=== PATIENT | female | born 1950 | race Hispanic/Latino ===

== ENCOUNTER 2018-10-07 09:49 | Emergency (ER) | payer OTHER ==
--- NOTE | 2018-10-07 10:35 | RAD REPORT ---
EXAM DESCRIPTION: CT - Abdomen Pelvis Wo Contrast - 10/07/2018 10:25 am CLINICAL HISTORY: Abdominal pain. left sided abdominal pain COMPARISON: Stone Protocol dated 10/19/2017 TECHNIQUE: CT imaging of the abdomen and pelvis was performed without contrast. Solid organ, bowel a nd vascular assessment is limited due to lack of IV and oral contrast. All CT scans are performed using dose optimization technique as appropriate and may include automated exposure control or mA/KV adjustment according to patient size. FINDINGS: Linear subsegmental atelectasis is present in the lung bases. Noncontrast assessment of the liver demonstrates no focal mass or biliary dilatation. The spleen, robins creas, right adrenal gland are unremarkable. 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 No bowel obstruction, free air, free fluid or abscess. The appendix is normal. The osseous structures are within normal limits. IMPRESSION: No acute intra-abdominal or pelvic findings. Bilateral renal caliceal calcifications without hydronephrosis. Stable 3 cm left adrenal mass, unchanged. A limited non-contrast examination was performed as detailed.
--- NOTE | 2018-10-07 10:46 | RAD REPORT ---
EXAM DESCRIPTION: RAD - Chest Single View - 10/07/2018 10:41 am CLINICAL HISTORY: shortness of breath Chest pain. COMPARISON: Chest Pa And Lat (2 Views) dated 06/01/2017; Chest Pa And Lat (2 Views) dated 05/06/2017; Chest Single View dated 03/13/2017; Chest Pa And Lat (2 Views) dated 09/30/2016 FINDINGS: Portable technique limits examination quality. Mild linear subsegmental atelectasis is present left lung base with elevated left hemidiaphragm. The heart is normal in size. Postsurgical changes of a prior CABG noted.
[2018-10-07 11:02] LABS: Absolute Lymphocytes (CBC) 2.1 K/uL (0.7-4.9); Absolute Monocytes 0.7 K/uL (0.1-1.3); Absolute Neutrophil 5.1 K/uL (1.8-8.0); Basophils % 0.8 % (0-1.3); Hematocrit 37.4 % (36.0-45.0); Lymphocytes % 25.4 % (15.3-44.8); MPV 9.2 fL (7.6-11.3); Monocytes % 8.4 % (3.3-12.3); RBC Red Blood Cell Count 3.97 M/uL (3.86-4.86)
[2018-10-07 11:04] LABS: Protime INR 0.96
[2018-10-07 11:22] LABS: ALT/SGPT 20 U/L (12-78); AST/SGOT 15 U/L (15-37); Albumin 3.4 g/dL (3.4-5.0); Alkaline Phosphatase 93 U/L (45-117); BUN Blood Urea Nitrogen 28 mg/dL (7-18); Bicarbonate 28 mmol/L (21-32); Bilirubin Direct < 0.1 mg/dL (0-0.2); Bilirubin Total 0.3 mg/dL (0.2-1.0); Glucose Level 96 mg/dL (74-106); Lipase 92 U/L (73-393); Magnesium 2.3 mg/dL (1.8-2.4); NT PRO-BNP 342 pg/mL (<125); Potassium 4.8 mmol/L (3.5-5.1); Protein, Total 7.3 g/dL (6.4-8.2); Sodium Level 141 mmol/L (136-145); Troponin (Emerg Dept Use Only) < 0.02 ng/mL (0.0-0.045)
--- OUTSIDE RECORDS SUMMARY | 2018-10-07 11:32 | XMS REPORT | Clinical Summary ---
:1950 Author Organization [facility] Address [address] [place] [address] Care Team Providers Name Role Phone Sharpruthy Primary Care Provider Zaki Solares Unavailable Allergies Active Allergy Reactions Severity Noted Date Comments Adhesive Tape-Silicones Itching, Rash Low 02/12/2017 Rash, redness Diphenhydramine Hcl Rash Low 03/15/2017 Medications Medication Sig Dispensed Refills Start Date End Date Status potassium chloride Take 10 mEq by 0 Active (KLOR-CON) 10 MEQ CR mouth daily. tablet docusate sodium Take 100 mg by 0 Active (COLACE) 100 MG mouth 2 (two) capsule times daily. metoprolol Take 25 mg by 0 Active (TOPROL-XL) 25 MG 24 mouth 2 (two) hr tablet times daily. gabapentin Take 100 mg by 0 Active (NEURONTIN) 100 MG mouth 2 (two) capsule times daily. biotin 10,000 mcg Take 1 capsule 0 Active Cap by mouth daily. losartan (COZAAR) 25 Take 1 tablet 30 tablet 1 03/31/2017 03/31/2018 MG tablet (25 mg total) by mouth daily. aspirin 81 MG Take 1 tablet 30 tablet 1 03/31/2017 03/31/2018 chewable tablet (81 mg total) by mouth daily. atorvastatin Take 1 tablet 30 tablet 1 03/30/2017 03/30/2018 (LIPITOR) 40 MG (40 mg total) by tablet mouth nightly. furosemide (LASIX) Take 3 tablets 180 tablet 1 03/31/2017 03/31/2018 20 MG tablet (60 mg total) by mouth 2 (two) times daily with breakfast and dinner. 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 S/P CABG (coronary artery bypass graft) 03/30/2017 Hypoxia 03/30/2017 Fluid overload 03/21/2017 Acute postoperative pain 03/18/2017 Cardiogenic shock 03/17/2017 Hypophosphatemia 03/17/2017 Lactic acid acidosis 03/17/2017 SIRS (systemic inflammatory response syndrome) 03/17/2017 Acute pulmonary insufficiency following thoracic surgery 03/16/2017 Acute blood loss as cause of postoperative anemia 03/16/2017 Coronary artery disease 03/15/2017 Diaphragm paralysis Family History Medical History Relation Name Comments Diabetes Father Heart disease Mother Relation Name Status Comments Father Mother Social History Tobacco Use Types Packs/Day Years Used Date Former Smoker 0.25 15 Quit: 03/2017 Smokeless Tobacco: Never Used Tobacco Cessation: Ready to Quit: Yes; Counseling Given: No Alcohol Use Drinks/Week oz/Week Comments No Sex Assigned at Date Recorded Not on file Job Start Date Occupation Industry Not on file Not on file Not on file Travel History Travel Start Travel End No recent travel history available. Last Filed Vital Signs Not on file Plan of Treatment Not on file Procedures Procedure Name Priority Date/Time Associated Diagnosis Comments TRANSFUSE LEUKO-REDUCED STAT 06/16/2018 5:25 PM SKIN CARVER RED BLOOD CELLS after 10/06/2017 Results Transfuse Leuko-Red RBC (06/16/2018 5:25 PM SKIN CARVER)after 10/06/2017 Insurance Payer Benefit Plan / Group Subscriber ID Type Phone Address [facility] ALL xxxxxxxxx [facility] Contracted MEDICAID MEDICAID [facility] xxxxxxxxx Medicaid Advance Directives Patient has advance care planning documents, and code status on file. For more information, please contact:[place] [address] [place] [phone] Code Status Date Activated Date Inactivated Comments Full Code 07/08/2017 9:54 AM 07/11/2017 6:46 PM This code status was determined by: Patient Full Code 07/08/2017 9:54 AM 07/08/2017 9:54 AM This code status was determined by: Patient Full Code 07/08/2017 9:54 AM 07/08/2017 9:54 AM This code status was determined by: Patient Full Code 03/15/2017 7:48 PM 03/31/2017 5:42 PM This code status was determined by: Patient
--- OUTSIDE RECORDS SUMMARY | 2018-10-07 11:32 | XMS REPORT | Clinical Summary ---
:1950 Author Organization [facility] Address [address] [place] [address] Care Team Providers Name Role Phone Hayden Aceves Primary Care Provider Allergies Active Allergy Reactions Severity Noted Date Comments Adhesive Tape-Silicones Itching, Rash Low 02/12/2017 Rash, redness Medications Medication Sig Dispensed Refills Start Date End Date Status amLODIPine (NORVASC) Take 10 mg 5 07/02/2016 Active 10 mg tablet by mouth every morning. HYDROcodone-acetamino Take 1 0 07/02/2016 Active phen (NORCO) 10-325 tablet by mg per tablet mouth every 8 (eight) hours as needed. tamsulosin (FLOMAX) Take 0.4 mg 5 07/02/2016 Active 0.4 mg by mouth capsule,extended every release 24hr morning. valsartan-hydrochloro Take 1 5 07/02/2016 Active thiazide (DIOVAN-HCT) tablet by 160-25 mg per tablet mouth every morning. cyclobenzaprine TAKE 1 2 02/15/2017 Active (FLEXERIL) 10 mg TABLET BY tablet MOUTH TWICE A DAY NEEDED FOR SPASMS FLUZONE HIGH-DOSE 0 03/08/2017 Active 2017-18, PF, 180 mcg/0.5 mL syringe vaccine traMADol-acetaminophe Take 1 0 02/25/2017 Active n (ULTRACET) 37.5-325 tablet by mg per tablet mouth every 4 (four) hours as needed. for pain aspirin (ECOTRIN) 81 Take 81 mg 0 Active MG enteric coated by mouth tablet daily. atorvastatin Take 40 mg 0 Active (LIPITOR) 40 MG by mouth tablet daily. metoprolol succinate Take 25 mg 0 Active XL (TOPROL-XL) 25 mg by mouth 24 hr tablet daily. losartan (COZAAR) 25 Take 25 mg 0 Active MG tablet by mouth daily. furosemide (LASIX) 20 Take 20 mg 0 Active mg tablet by mouth 2 (two) times a day. famotidine (PEPCID) Take 40 mg 0 Active 40 MG tablet by mouth daily. cholecalciferol, Take 1,000 0 Active vitamin D3, (VITAMIN Units by D3) 1,000 unit mouth daily. capsule potassium citrate Take 1 180 tablet 3 08/25/2018 Active (UROCIT-K) 15 mEq tablet (15 tablet extended mEq total) release by mouth 2 (two) times a day. potassium chloride Take 1 60 tablet 11 11/27/2016 (KLOR-CON) 10 MEQ CR tablet (10 8 tablet mEq total) by mouth 2 (two) times a day. potassium citrate Take 1 180 tablet 3 04/25/2018 Discontinued (UROCIT-K) 10 mEq tablet (10 9 (1,080 mg) CR tablet mEq total) by mouth 3 (three) times a day with meals. Active Problems Problem Noted Date Staghorn renal calculus 08/05/2016 Encounters Date Type Specialty Care Team Description 08/30/2018 Telephone Urology Renetta Schulz MA Hyperoxaluria (Primary Dx); Nephrolithiasis 08/25/2018 Hospital Encounter Radiology Michela Kaplan, Nephrolithiasis; MD Busbyitratbna 08/25/2018 Office Visit Urology Michela Kaplan, Nephrolithiasis (Primary Dx ); MD Maguire; Recurrent kidney stones 08/25/2018 Telephone Urology Sally Garcias, Nephrolithiasis (Primary Dx) SESAR 06/14/2018 Telephone Urology Rita Santillan MA Kidney stone (Primary Dx) 04/28/2018 Telephone Urology Rita Santillan MA 04/25/2018 Office Visit Urology Michela Kaplan, Nephrolithiasis (Primary Dx ); MD Busbyitratnba 04/21/2018 Orders Only Urology Michela Kaplan MD 12/28/2017 Telephone UrologRita Roldan MA 11/15/2017 Office Visit Urology Michela Kaplan, Nephrolithiasis (Primary Dx ); 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 Last Filed Vital Signs Vital Sign Reading Time Taken Blood Pressure 136/92 08/25/2018 1:22 PM CDT Pulse 72 08/25/2018 1:22 PM CDT Temperature - - Respiratory Rate - - Oxygen Saturation - - Inhaled Oxygen Concentration - - Weight - - Height - - Body Mass Index - - Plan of Treatment Date Type Specialty Care Team Description 02/27/2019 Office Visit Urology Red Perez MD [address] [facility] [address] [address] [place] [address] Health Maintenance Due Date Last Done Comments BREAST CANCER SCREENING 2000 COLON CANCER SCREENING 2000 SHINGLES VACCINES (#1) 2000 65+ PNEUMOCOCCAL VACCINE (2 of 2 - PPSV23) 09/30/2015 03/14/2017 INFLUENZA VACCINE 12/08/2018 PNEUMOCOCCAL POLYSACCHARIDE VACCINE AGE 65 AND OVER Completed 03/14/2017 Implants Implanted Type Area Machine Loader Device Shelf Model / Identifier Expiration Serial / Date Lot Catheter Uretl Blln Dilat Occluder Uromax 7fr 2.3mm X 100cm - [id number] Cardiovascular N/A: [facility] [id number] / Implanted: 08/05/2016 (Quantity not on file) Implants N/A / Catheter Uretl Blln Dilat Occluder Uromax 7fr 2.3mm X 100cm - [id number] Cardiovascular N/A: [facility] [id number] / Implanted: 08/05/2016 (Quantity not on file) Implants N/A / Catheter Uretl 6/10fr 50cm Flx-Tp Dlmn Std Accs - [id number] Surgical N/A: [facility] [id number] / Implanted: 08/05/2016 (Quantity not on file) Implants; N/A / Expanders; Extenders; Surgical Wires Catheter Uretl Ultrathane 8.5fr 25cm 6sp [facility] [address] - [id number] Surgical N/A: [employer] [id number] / Implanted: 08/05/2016 (Quantity not on file) Implants; N/A INTERVENTIONAL / Expanders; RADIOLOGY Extenders; Surgical Wires Stent Uretl Unvrsa Reprcsd 6fr 26cm Hydrphlc Ctng - [id number] [facility] Right: [facility] 03/20/2019 [id number] / Implanted: Qty: 1 on 07/22/2016 by Michela Kaplan MD Implants or Sets N/A / [id number] Stent Uretl Universa 6fr 24cm Hydrphlc With Gw - [id number] Urological Left: [facility] 05/26/2019 [id number] / Implanted: Qty: 1 on 08/12/2016 by Michela Kaplan MD Implants or Sets N/A / [id number] Stent Uretl Universa 6fr 24cm Hydrphlc With Gw - [id number] [facility] 11/13/2019 [id number] / Implanted: Qty: 1 on 02/23/2017 by Michela Kaplan MD Implants or Sets / Procedures Procedure Name Priority Date/Time Associated Diagnosis Comments XR KUB KIDNEY Routine 08/25/2018 3:18 Nephrolithiasis Results for this URETER BLADDER PM CDT Hypocitraturia procedure are in the results section. BASIC METABOLIC Routine 08/25/2018 2:06 Nephrolithiasis Results for this PANEL PM CDT Hypocitraturia procedure are in the results section. POC URINALYSIS Routine 08/25/2018 1:33 Nephrolithiasis Results for this DIPSTICK PM CDT procedure are in the results section. LITHOLINK STONE Routine 08/17/2018 RISK FACTORS, DIETARY FACTORS, AND NORMALIZED VALUES POC URINALYSIS Routine 04/25/2018 2:56 Nephrolithiasis Results for this DIPSTICK PM [employer]OBBIN W[employer]ER Hypocitraturia procedure are in the results section. LITHOLINK STONE Routine 04/06/2018 Results for this RISK FACTORS, procedure are in DIETARY FACTORS, the results AND NORMALIZED section. VALUES BASIC METABOLIC Routine 11/15/2017 12:22 Nephrolithiasis Results for this PANEL PM CDT procedure are in the results section. POC URINALYSIS Routine 11/15/2017 12:16 Nephrolithiasis Results for this DIPSTICK PM CDT procedure are in the results section. after 10/06/2017 Results XR Kub Kidney Ureter Bladder (08/25/2018 3:18 PM CDT) Specimen Narrative Performed At EXAMINATION:XR KUB KIDNEY [facility] BLAD[facility] CLINICAL HISTORY:N20.0 Calculus of kidney, R82.991 Hypocitraturia, kidney stone COMPARISON:None. IMPRESSION: Kidneys are obscured by large amount of stool in colon However there does appear to be a small 3 mm stone in the right renal pelvis and possible 1 to 2 mm calyceal calcifications bilaterally Phleboliths in lower pelvis The bony structures are within normal limits [id number] Procedure Note Interface, Radiology Results Incoming - 08/25/2018 4:29 PM CDT EXAMINATION: XR KUB KIDNEY URETER BLADDER CLINICAL HISTORY: N20.0 Calculus of kidney, R82.991 Hypocitraturia, kidney stone COMPARISON: None. IMPRESSION: Kidneys are obscured by large amount of stool in colon However there does appear to be a small 3 mm stone in the right renal pelvis and possible 1 to 2 mm calyceal calcifications bilaterally Phleboliths in lower pelvis The bony structures are within normal limits [id number] Performing Organization Address City/State/Zipcode Phone Number [facility] [address] [place] [address] Basic metabolic panel (08/25/2018 2:06 PM CDT)Only the most recent of2 resultswithin the time period is included. Glucose 84 65 - 99 [facility] Comment: mg/dL [place] Fasting reference interval BUN, whole blood 31 (H) 7 - 25 mg/dL [facility] [place] Creatinine 1.36 (H) 0.50 - 0.99 [facility] Comment: mg/dL [place] For patients >49 years of age, the reference limit for Creatinine is approximately 13% higher for people identified as -[place]. EGFR Non-Afr. 40 (L) > OR=60 [facility] [place] mL/min/1.73m [place] 2 EGFR 47 (L) > OR=60 [facility] [place] mL/min/1.73m [place] [address] BUN/creatinine 23 (H) 6 - 22 [facility] ratio (calc) [place] Sodium 138 135 - 146 [facility] mmol/L [place] Potassium 5.5 (H) 3.5 - 5.3 [facility] mmol/L [place] Chloride 101 98 - 110 [facility] mmol/L [place] CO2 30 20 - 32 [facility] mmol/L [place] Calcium 9.9 8.6 - 10.4 [facility] mg/dL [place] Specimen Blood Resulting Agency Comment Performing Organization Information: Site ID: [id number] [facility] Address: [address] [place] [address] Director: Lisa Mayberry Performing Organization Address City/State/Zipcode Phone Number [facility] [place] [address] [place] [address] POC urinalysis dipstick (08/25/2018 1:33 PM CDT)Only the most recent of3 resultswithin the time period is included. Color urine, POC Yellow Clarity urine, POC Clear Glucose urine, POC Negative Negative Bilirubin urine, POC Negative Negative Ketones urine, POC Negative Negative Specific gravity urine, 1.015 1.005 - 1.030 POC Blood urine, POC Negative Negative pH urine, POC 7.0 5.0, 5.5, 6.0, 6.5, 7.0, 7.5, 8.0, 8.5 Protein urine, POC Negative Negative Urobilinogen urine, POC <2.0 <2.0 Nitrite urine, POC Negative Negative Leukocyte esterase Trace (A) Negative urine, POC Specimen Urine Litholink (08/17/2018)Only the most recent of2 resultswithin the time period is included. Specimen Urine Narrative Performed At after 10/06/2017 (Home) [facility] [address] [place] [address] Advance Directives Patient has advance care planning documents on file. For more information, please contact:[place] [address] [place] [address]
--- OUTSIDE RECORDS SUMMARY | 2018-10-07 11:36 | XMS REPORT ---
:1950 Author Organization [facility] Address [address] [place] [address] Care Team Providers Name Role Phone CLIVE VALLEJO Unavailable Unavailable Problems This patient has no known problems. Allergies, Adverse Reactions, Alerts This patient has no known allergies or adverse reactions. Medications This patient has no known medications. Results Test Description Test Time Test Comments Text Results Atomic Results Result Comments POCT-GLUCOSE METER 2017-07-11 11:50:00 Test Item Value Reference Range Comments POC-GLUCOSE METER (BEAKER) (test 130 mg/dL 70-110 TESTED AT [address] ewsp=8397) [facility] [address] POCT-GLUCOSE [id number] 08:52:00 Test Item Value Reference Range Comments POC-GLUCOSE METER (BEAKER) 122 mg/dL 70-110 TESTED AT [address] (test ddtg=0263) [facility] [address] POCT-GLUCOSE [id number] 21:48:00 Test Item Value Reference Range Comments POC-GLUCOSE METER (BEAKER) 122 mg/dL 70-110 TESTED AT [address] (test vrec=5126) [facility] [address] POCT-GLUCOSE [id number] 17:23:00 Test Item Value Reference Range Comments POC-GLUCOSE METER (BEAKER) 167 mg/dL 70-110 TESTED AT [address] (test oeyq=4670) [facility] [address] POCT-GLUCOSE [id number] 12:50:00 Test Item Value Reference Range Comments POC-GLUCOSE METER (BEAKER) 130 mg/dL 70-110 TESTED AT [address] (test ggci=6287) [facility] [address] POCT-GLUCOSE [id number] 08:41:00 Test Item Value Reference Range Comments POC-GLUCOSE METER (BEAKER) 125 mg/dL 70-110 [address]ED [address] (test xmcq=3674) [facility] [address] BASIC METABOLIC [id number] 05:16:00 Test Item Value Reference Range Comments SODIUM (BEAKER) (test 135 meq/L 136-145 resy=928) POTASSIUM (BEAKER) (test 4.4 meq/L 3.5-5.1 puke=048) CHLORIDE (BEAKER) (test 103 meq/L 98-107 obiu=669) CO2 (BEAKER) (test 25 meq/L 22-29 dphs=518) BLOOD UREA NITROGEN 22 mg/dL 7-21 (BEAKER) (test pipw=441) CREATININE (BEAKER) (test 0.84 mg/dL 0.57-1.25 jjsx=349) GLUCOSE RANDOM (BEAKER) 97 mg/dL 70-105 (test ualo=966) CALCIUM (BEAKER) (test 8.7 mg/dL 8.4-10.2 grbq=736) EGFR (BEAKER) (test 68 mL/min/1.73 sq m ESTIMATED GFR IS NOT cvut=1397) ACCURATE CREATININE CLEARANCE IN PREDICTING GLOMERULAR FILTRATION RATE. ESTIMATED GFR IS NOT APPLICABLE FOR DIALYSIS PATIENTS. CBC W/PLT COUNT & AUTO [id number] 04:00:00 Test Item Value Reference Range Comments WHITE BLOOD CELL COUNT (BEAKER) (test njzi=308) 10.3 K/ L 3.5-10.5 RED BLOOD CELL COUNT (BEAKER) (test mddo=361) 3.00 M/ L 3.93-5.22 HEMOGLOBIN (BEAKER) (test ryqk=087) 9.1 GM/DL 11.2-15.7 HEMATOCRIT (BEAKER) (test uxie=073) 29.6 % 34.1-44.9 MEAN CORPUSCULAR VOLUME (BEAKER) (test qfij=175) 98.7 fL 79.4-94.8 MEAN CORPUSCULAR HEMOGLOBIN (BEAKER) (test 30.3 pg 25.6-32.2 bcja=786) MEAN CORPUSCULAR HEMOGLOBIN CONC (BEAKER) (test 30.7 GM/DL 32.2-35.5 yboq=548) RED CELL DISTRIBUTION WIDTH (BEAKER) (test 13.2 % 11.7-14.4 zyoc=917) PLATELET COUNT (BEAKER) (test bfsj=426) 241 K/CU MM 150-450 MEAN PLATELET VOLUME (BEAKER) (test qqvn=687) 10.7 fL 9.4-12.3 NUCLEATED RED BLOOD CELLS (BEAKER) (test 0 /100 WBC 0-0 loaq=448) NEUTROPHILS RELATIVE PERCENT (BEAKER) (test 68 % gqov=900) LYMPHOCYTES RELATIVE PERCENT (BEAKER) (test 19 % rzqr=747) MONOCYTES RELATIVE PERCENT (BEAKER) (test 10 % nhgd=613) EOSINOPHILS RELATIVE PERCENT (BEAKER) (test 2 % bqjy=922) BASOPHILS RELATIVE PERCENT (BEAKER) (test 0 % tbte=729) NEUTROPHILS ABSOLUTE COUNT (BEAKER) (test 7.00 K/ L 1.56-6.13 aoxl=714) LYMPHOCYTES ABSOLUTE COUNT (BEAKER) (test 1.93 K/ L 1.18-3.74 uvmd=493) MONOCYTES ABSOLUTE COUNT (BEAKER) (test 1.04 K/ L 0.24-0.36 djls=030) EOSINOPHILS ABSOLUTE COUNT (BEAKER) (test 0.23 K/ L 0.04-0.36 dqps=914) BASOPHILS ABSOLUTE COUNT (BEAKER) (test 0.04 K/ L 0.01-0.08 uhqd=446) IMMATURE GRANULOCYTES-RELATIVE PERCENT (BEAKER) 0 % 0-1 (test euby=1938) POCT-GLUCOSE [id number] 18:14:00 Test Item Value Reference Range Comments POC-GLUCOSE METER (BEAKER) 138 mg/dL 70-[address] [facility] [address] [facility] (test qrjz=5095) [place] [id number] POCT-GLUCOSE [id number] 13:06:00 Test Item Value Reference Range Comments POC-GLUCOSE METER (BEAKER) 134 mg/dL 70-[address] [facility] [address] [facility] [facility] (test qfkv=8146) [facility] [address] RAD, CHEST, 1 VIEW, NON [id number] 08:33:00while patient is intubated or has chest tubes.Reason for exam:->PostopShould this be performed atthe bedside?->YesFINAL REPORT Chest one view compared to July 08 Discussion: Bilateral interstitial and patchy airspace opacities are similar to that of the prior study. Left chest tube in place.No effusion or pneumothorax. Signed: Lin Cochran XIOMARAeport Verified Date/Time: 07/09/2017 08: 33:23 Reading Location: [facility] Radiology Reading Room CBC W/PLT COUNT & AUTO [id number] 08:29:00 Test Item Value Reference Range Comments WHITE BLOOD CELL COUNT (BEAKER) (test xqun=279) 17.5 K/ L 3.5-10.5 RED BLOOD CELL COUNT (BEAKER) (test ogxx=934) 3.28 M/ L 3.93-5.22 HEMOGLOBIN (BEAKER) (test wxtl=472) 10.0 GM/DL 11.2-15.7 HEMATOCRIT (BEAKER) (test pmoz=672) 32.1 % 34.1-44.9 MEAN CORPUSCULAR VOLUME (BEAKER) (test byzp=285) 97.9 fL 79.4-94.8 MEAN CORPUSCULAR HEMOGLOBIN (BEAKER) (test 30.5 pg 25.6-32.2 uzip=244) MEAN CORPUSCULAR HEMOGLOBIN CONC (BEAKER) (test 31.2 GM/DL 32.2-35.5 kntr=494) RED CELL DISTRIBUTION WIDTH (BEAKER) (test 13.1 % 11.7-14.4 qler=322) PLATELET COUNT (BEAKER) (test yqiv=131) 288 K/CU MM 150-450 MEAN PLATELET VOLUME (BEAKER) (test enbm=900) 11.3 fL 9.4-12.3 NUCLEATED RED BLOOD CELLS (BEAKER) (test 0 /100 WBC 0-0 tewn=828) NEUTROPHILS RELATIVE PERCENT (BEAKER) (test 86 % rphy=161) LYMPHOCYTES RELATIVE PERCENT (BEAKER) (test 7 % uamp=940) MONOCYTES RELATIVE PERCENT (BEAKER) (test 6 % nvbm=739) EOSINOPHILS RELATIVE PERCENT (BEAKER) (test 0 % etbl=460) BASOPHILS RELATIVE PERCENT (BEAKER) (test 0 % qgfz=725) NEUTROPHILS ABSOLUTE COUNT (BEAKER) (test 15.09 K/ L 1.56-6.13 nzac=061) LYMPHOCYTES ABSOLUTE COUNT (BEAKER) (test 1.22 K/ L 1.18-3.74 vmyr=653) MONOCYTES ABSOLUTE COUNT (BEAKER) (test 1.11 K/ L 0.24-0.36 eecl=564) EOSINOPHILS ABSOLUTE COUNT (BEAKER) (test 0.00 K/ L 0.04-0.36 zsgs=783) BASOPHILS ABSOLUTE COUNT (BEAKER) (test 0.02 K/ L 0.01-0.08 mved=185) IMMATURE GRANULOCYTES-RELATIVE PERCENT (BEAKER) 0 % 0-1 (test kdwf=3797) POCT-GLUCOSE [id number] 08:26:00 Test Item Value Reference Range Comments POC-GLUCOSE METER (BEAKER) 128 mg/dL 70-110 TESTED AT [address] (test bmpc=5453) [place] [address] BASIC METABOLIC [id number] 07:34:00 Test Item Value Reference Range Comments SODIUM (BEAKER) (test 134 meq/L 136-145 iuwm=753) POTASSIUM (BEAKER) (test 5.0 meq/L 3.5-5.1 svwi=785) CHLORIDE (BEAKER) (test 102 meq/L 98-107 noof=375) CO2 (BEAKER) (test 22 meq/L 22-29 xngj=751) BLOOD UREA NITROGEN 23 mg/dL 7-21 (BEAKER) (test jmqy=284) CREATININE (BEAKER) (test 0.97 mg/dL 0.57-1.25 lsvg=614) GLUCOSE RANDOM (BEAKER) 122 mg/dL 70-105 (test pfzh=212) CALCIUM (BEAKER) (test 9.2 mg/dL 8.4-10.2 feko=102) EGFR (BEAKER) (test 57 mL/min/1.73 sq m ESTIMATED GFR IS NOT viyw=9976) ACCURATE CREATININE CLEARANCE IN PREDICTING GLOMERULAR FILTRATION RATE. ESTIMATED GFR IS NOT APPLICABLE FOR DIALYSIS PATIENTS. POCT-GLUCOSE [id number] 19:34:00 Test Item Value Reference Range Comments POC-GLUCOSE METER (BEAKER) 134 mg/dL 70-110 TESTED AT [address] (test ycgp=2719) [place] [address] RAD, CHEST, 1 VIEW, NON [id number] 13:29:00Reason for exam:-> PostopShould this be performed at the bedside?->YesAddendum BeginsREPORT STATUS:A Addendum:Old fractures of several right-sided ribs are visualized. No acute fractures visualized. End of addendum. Signed: Amarjit Rosales Verified Date/Time: 07/08/2017 13:29:35 Reading Location: [facility] Radiology Reading RoomAddendum EndsFINAL REPORT TECHNIQUE: Frontal chest radiograph dated 07/08/2017. CLINICAL HISTORY: Post op COMPARISON STUDY: Chest radiograph dated 07/05/2017 IMPRESSION: Endotracheal tube is 3.4 cm above the maricarmen. Left-sided chest tube is in place. There is improved aeration of the left lungbase. There is an irregular airspace opacity in the left lung base likely atelectasis. Atelectasis is seen in the right lung base. No pleural effusion or pneumothorax. Cardiomediastinal silhouette is normal in size. There is interstitial pulmonary edema. Midline sternotomy wires are intact and well aligned. No fracture. Signed: Amarjit Rosales Verified Date/Time: 07/08/2017 13:18:37 Reading Location: [facility] Radiology Reading Room BLOOD GAS, [id number] 12:45:00 Test Item Value Reference Range Comments PH ARTERIAL (BEAKER) (test lpqo=400) 7.35 7.35-7.45 PCO2 ARTERIAL (BEAKER) (test gsjt=605) 44 mmHg 35-45 PO2 ARTERIAL (BEAKER) (test wdmq=635) 100 mmHg 80-90 O2 SATURATION ARTERIAL (BEAKER) (test qbwr=048) 97.4 % 96.0-97.0 HCO3 ARTERIAL (BEAKER) (test jdnz=472) 24 mmol/L 21-29 BASE EXCESS ARTERIAL (BEAKER) (test kppb=640) -2.3 mmol/L -2.0-3.0 PATIENT TEMPERATURE (BEAKER) (test xdqe=8199) 36.5 C FIO2 (BEAKER) (test guci=5675) 40.0 % LACTIC ACID, ARTERIAL, WHOLE [id number] 12:10:00 Test Item Value Reference Range Comments LACTATE BLOOD ARTERIAL (2) (BEAKER) (test 1.1 mmol/L 0.5-2.2 quuz=2659) Effective 09/11/2015: Units/Reference Range ChangeNew: 0.5-2.2 mmol/L Previous: 5 -20 mg/[id number] 12:02:00 Test Item Value Reference Range Comments POTASSIUM (BEAKER) (test qsnr=854) 4.3 meq/L 3.5-5.1 [id number] 12:02:00 Test Item Value Reference Range Comments MAGNESIUM (BEAKER) (test umjx=747) 1.9 mg/dL 1.6-2.6 [id number] 12:02:00 Test Item Value Reference Range Comments GLUCOSE RANDOM (BEAKER) (test vyow=060) 196 mg/dL 70-105 BASIC METABOLIC [id number] 12:02:00 Test Item Value Reference Range Comments SODIUM (BEAKER) (test 135 meq/L 136-145 itnq=386) POTASSIUM (BEAKER) (test 4.3 meq/L 3.5-5.1 mvct=395) CHLORIDE (BEAKER) (test 104 meq/L 98-107 muvs=544) CO2 (BEAKER) (test 24 meq/L 22-29 pnjr=937) BLOOD UREA NITROGEN 21 mg/dL 7-21 (BEAKER) (test cirt=208) CREATININE (BEAKER) (test 1.02 mg/dL 0.57-1.25 sejd=155) GLUCOSE RANDOM (BEAKER) 196 mg/dL 70-105 (test cpsx=693) CALCIUM (BEAKER) (test 9.6 mg/dL 8.4-10.2 relo=298) EGFR (BEAKER) (test 54 mL/min/1.73 sq m ESTIMATED GFR IS NOT xvlt=7960) ACCURATE CREATININE CLEARANCE IN PREDICTING GLOMERULAR FILTRATION RATE. ESTIMATED GFR IS NOT APPLICABLE FOR DIALYSIS PATIENTS. CBC W/PLT COUNT & AUTO [id number] 11:49:00 Test Item Value Reference Range Comments WHITE BLOOD CELL COUNT (BEAKER) (test dnae=607) 17.0 K/ L 3.5-10.5 RED BLOOD CELL COUNT (BEAKER) (test bexu=930) 3.45 M/ L 3.93-5.22 HEMOGLOBIN (BEAKER) (test bokr=734) 10.4 GM/DL 11.2-15.7 HEMATOCRIT (BEAKER) (test omsu=100) 32.6 % 34.1-44.9 MEAN CORPUSCULAR VOLUME (BEAKER) (test qdej=916) 94.5 fL 79.4-94.8 MEAN CORPUSCULAR HEMOGLOBIN (BEAKER) (test 30.1 pg 25.6-32.2 vnpp=302) MEAN CORPUSCULAR HEMOGLOBIN CONC (BEAKER) (test 31.9 GM/DL 32.2-35.5 dzvs=127) RED CELL DISTRIBUTION WIDTH (BEAKER) (test 12.8 % 11.7-14.4 gkpv=215) PLATELET COUNT (BEAKER) (test cizx=761) 291 K/CU MM 150-450 MEAN PLATELET VOLUME (BEAKER) (test pcwb=321) 10.5 fL 9.4-12.3 NUCLEATED RED BLOOD CELLS (BEAKER) (test 0 /100 WBC 0-0 adqm=888) NEUTROPHILS RELATIVE PERCENT (BEAKER) (test 83 % oxks=511) LYMPHOCYTES RELATIVE PERCENT (BEAKER) (test 13 % mami=527) MONOCYTES RELATIVE PERCENT (BEAKER) (test 3 % skdq=165) EOSINOPHILS RELATIVE PERCENT (BEAKER) (test 1 % tbdg=324) BASOPHILS RELATIVE PERCENT (BEAKER) (test 0 % jggt=429) NEUTROPHILS ABSOLUTE COUNT (BEAKER) (test 14.10 K/ L 1.56-6.13 gspu=804) LYMPHOCYTES ABSOLUTE COUNT (BEAKER) (test 2.20 K/ L 1.18-3.74 gekd=440) MONOCYTES ABSOLUTE COUNT (BEAKER) (test 0.44 K/ L 0.24-0.36 drpf=744) EOSINOPHILS ABSOLUTE COUNT (BEAKER) (test 0.08 K/ L 0.04-0.36 zzpl=365) BASOPHILS ABSOLUTE COUNT (BEAKER) (test 0.04 K/ L 0.01-0.08 dyjr=177) IMMATURE GRANULOCYTES-RELATIVE PERCENT (BEAKER) 1 % 0-1 (test qwmt=9200) CALCIUM, [id number] 11:40:00 Test Item Value Reference Range Comments CALCIUM IONIZED (BEAKER) (test tkev=713) 1.27 mmol/L 1.12-1.27 PH, BLOOD (BEAKER) (test bgcf=9483) 7.34 BLOOD GAS, [id number] 11:39:00 Test Item Value Reference Range Comments PH ARTERIAL (BEAKER) (test mozv=753) 7.35 7.35-7.45 PCO2 ARTERIAL (BEAKER) (test kwxc=600) 48 mmHg 35-45 PO2 ARTERIAL (BEAKER) (test jufq=325) 84 mmHg 80-90 O2 SATURATION ARTERIAL (BEAKER) (test pxfr=659) 96.2 % 96.0-97.0 HCO3 ARTERIAL (BEAKER) (test jdpc=737) 26 mmol/L 21-29 BASE EXCESS ARTERIAL (BEAKER) (test kxyw=522) -0.1 mmol/L -2.0-3.0 PATIENT TEMPERATURE (BEAKER) (test ubnv=6968) 36.3 C FIO2 (BEAKER) (test jtuw=7749) 40.0 % RAD, CHEST, 2 [id number] 13:29:00Reason for Exam:->Pre-OpFINAL REPORT Two views chest compared to March 30, 2017 Discussion : Left lower lung opacity and elevated left hemidiaphragm are generally similar. Right lung clear. I cannot exclude left effusion. No pneumothorax. There is an exaggerated thoracic kyphosis. IMPRESSION: Nonspecific opacity left lower lung, grossly unchanged. Signed: Lin Cochran Verified Date/Time : 07/05/2017 13:29:08 Reading Location: [address] Consult Reading Room HEMOGLOBIN [id number] 12:48:00 Test Item Value Reference Range Comments HEMOGLOBIN A1C (BEAKER) (test qizq=925) 6.6 % 4.3-6.1 BASIC METABOLIC [id number] 12:37:00 Test Item Value Reference Range Comments SODIUM (BEAKER) (test 142 meq/L 136-145 kzki=719) POTASSIUM (BEAKER) (test 4.0 meq/L 3.5-5.1 veps=661) CHLORIDE (BEAKER) (test 102 meq/L 98-107 ykes=380) CO2 (BEAKER) (test 29 meq/L 22-29 pvcx=965) BLOOD UREA NITROGEN 23 mg/dL 7-21 (BEAKER) (test bwja=223) CREATININE (BEAKER) (test 1.01 mg/dL 0.57-1.25 mjoe=889) GLUCOSE RANDOM (BEAKER) 84 mg/dL 70-105 (test bwdd=786) CALCIUM (BEAKER) (test 9.5 mg/dL 8.4-10.2 vchs=907) EGFR (BEAKER) (test 55 mL/min/1.73 sq m ESTIMATED GFR IS NOT laqy=1929) ACCURATE CREATININE CLEARANCE IN PREDICTING GLOMERULAR FILTRATION RATE. ESTIMATED GFR IS NOT APPLICABLE FOR DIALYSIS PATIENTS. PROTHROMBIN TIME/[id number] 12:22:00 Test Item Value Reference Range Comments PROTIME (BEAKER) (test tcjv=247) 13.2 seconds 11.7-14.7 INR (BEAKER) (test uebe=188) 1.0 <=5.9 RECOMMENDED COUMADIN/WARFARIN INR THERAPY RANGESSTANDARD DOSE: 2.0 - 3.0 Includes: PROPHYLAXIS forvenous thrombosis, systemic embolization; TREATMENT for venous thrombosis and/or pulmonary embolus.HIGH RISK: Target INR is 2.5-3.5 for patients with mechanical heart valves.CBC W/PLT COUNT & AUTO [id number] 12:14:00 Test Item Value Reference Range Comments WHITE BLOOD CELL COUNT (BEAKER) (test socn=408) 9.2 K/ L 3.5-10.5 RED BLOOD CELL COUNT (BEAKER) (test cblo=435) 3.77 M/ L 3.93-5.22 HEMOGLOBIN (BEAKER) (test dbvy=193) 11.4 GM/DL 11.2-15.7 HEMATOCRIT (BEAKER) (test uhiu=371) 36.0 % 34.1-44.9 MEAN CORPUSCULAR VOLUME (BEAKER) (test ophi=516) 95.5 fL 79.4-94.8 MEAN CORPUSCULAR HEMOGLOBIN (BEAKER) (test 30.2 pg 25.6-32.2 tlda=256) MEAN CORPUSCULAR HEMOGLOBIN CONC (BEAKER) (test 31.7 GM/DL 32.2-35.5 rdlx=316) RED CELL DISTRIBUTION WIDTH (BEAKER) (test 12.9 % 11.7-14.4 yffj=517) PLATELET COUNT (BEAKER) (test uuuu=704) 338 K/CU MM 150-450 MEAN PLATELET VOLUME (BEAKER) (test kmlx=201) 10.2 fL 9.4-12.3 NUCLEATED RED BLOOD CELLS (BEAKER) (test 0 /100 WBC 0-0 fddj=048) NEUTROPHILS RELATIVE PERCENT (BEAKER) (test 65 % lhej=015) LYMPHOCYTES RELATIVE PERCENT (BEAKER) (test 23 % qndx=283) MONOCYTES RELATIVE PERCENT (BEAKER) (test 8 % zaah=699) EOSINOPHILS RELATIVE PERCENT (BEAKER) (test 4 % ysvb=525) BASOPHILS RELATIVE PERCENT (BEAKER) (test 0 % ziag=287) NEUTROPHILS ABSOLUTE COUNT (BEAKER) (test 5.97 K/ L 1.56-6.13 lhca=766) LYMPHOCYTES ABSOLUTE COUNT (BEAKER) (test 2.07 K/ L 1.18-3.74 gdls=016) MONOCYTES ABSOLUTE COUNT (BEAKER) (test 0.74 K/ L 0.24-0.36 tref=387) EOSINOPHILS ABSOLUTE COUNT (BEAKER) (test 0.35 K/ L 0.04-0.36 excu=388) BASOPHILS ABSOLUTE COUNT (BEAKER) (test 0.03 K/ L 0.01-0.08 zxvs=452) IMMATURE GRANULOCYTES-RELATIVE PERCENT (BEAKER) 0 % 0-1 (test lqhu=7586) FL, FLUORO, NON-SPECIFIC, UP TO 1 [id number] 11:29:00Reason for exam:-> sniff test for diaphragm dysfunctionFINAL REPORT INDICATION:68-year-old female status post heart surgery with shortness of breath. Evaluate for fragmented paralysis. COMPARISON: Chest radiograph March 30, 2017 TECHNIQUE: Chest fluoroscopy.Fluoroscopy time 0.2 minutes.Acquired fluoroscopic images 0. FINDINGS: The diaphragm was observed while the patient forcefully inspired through her nose (sniff test). There was asymmetric upper movement of the left hemidiaphragm relative to the right. Changes of coronary artery bypass surgery and platelike atelectasis in the left lower lobe noted. IMPRESSION:Left hemidiaphragm paralysis. Signed: Jay Mariano MDReport Verified Date/Time: 03/31/2017 11:29:31 Reading Location: [address] Consult Reading Room BASIC METABOLIC [id number] 09:08:00 Test Item Value Reference Range Comments SODIUM (BEAKER) (test 136 meq/L 136-145 wqts=755) POTASSIUM (BEAKER) (test 3.9 meq/L 3.5-5.1 ptha=536) CHLORIDE (BEAKER) (test 100 meq/L 98-107 qusv=485) CO2 (BEAKER) (test 26 meq/L 22-29 yksn=962) BLOOD UREA NITROGEN 23 mg/dL 7-21 (BEAKER) (test jahj=754) CREATININE (BEAKER) (test 0.94 mg/dL 0.57-1.25 qmxt=662) GLUCOSE RANDOM (BEAKER) 113 mg/dL 70-105 (test odok=819) CALCIUM (BEAKER) (test 9.1 mg/dL 8.4-10.2 bgak=502) EGFR (BEAKER) (test 60 mL/min/1.73 sq m ESTIMATED GFR IS NOT dbls=7889) ACCURATE CREATININE CLEARANCE IN PREDICTING GLOMERULAR FILTRATION RATE. ESTIMATED GFR IS NOT APPLICABLE FOR DIALYSIS PATIENTS. CBC W/PLT COUNT & AUTO [id number] 05:58:00 Test Item Value Reference Range Comments WHITE BLOOD CELL COUNT (BEAKER) (test pcof=760) 10.4 K/ L 3.5-10.5 RED BLOOD CELL COUNT (BEAKER) (test sixf=471) 2.76 M/ L 3.93-5.22 HEMOGLOBIN (BEAKER) (test dvxv=865) 8.6 GM/DL 11.2-15.7 HEMATOCRIT (BEAKER) (test iksn=771) 27.3 % 34.1-44.9 MEAN CORPUSCULAR VOLUME (BEAKER) (test hvnj=417) 98.9 fL 79.4-94.8 MEAN CORPUSCULAR HEMOGLOBIN (BEAKER) (test 31.2 pg 25.6-32.2 smzy=130) MEAN CORPUSCULAR HEMOGLOBIN CONC (BEAKER) (test 31.5 GM/DL 32.2-35.5 nwzn=800) RED CELL DISTRIBUTION WIDTH (BEAKER) (test 14.2 % 11.7-14.4 zdse=137) PLATELET COUNT (BEAKER) (test ahli=576) 428 K/CU MM 150-450 MEAN PLATELET VOLUME (BEAKER) (test hftp=208) 10.1 fL 9.4-12.3 NUCLEATED RED BLOOD CELLS (BEAKER) (test 0 /100 WBC 0-0 crlk=747) NEUTROPHILS RELATIVE PERCENT (BEAKER) (test 64 % ucbd=494) LYMPHOCYTES RELATIVE PERCENT (BEAKER) (test 18 % pzmv=274) MONOCYTES RELATIVE PERCENT (BEAKER) (test 12 % tqlv=093) EOSINOPHILS RELATIVE PERCENT (BEAKER) (test 5 % wuds=389) BASOPHILS RELATIVE PERCENT (BEAKER) (test 0 % vypp=942) NEUTROPHILS ABSOLUTE COUNT (BEAKER) (test 6.66 K/ L 1.56-6.13 gehu=257) LYMPHOCYTES ABSOLUTE COUNT (BEAKER) (test 1.88 K/ L 1.18-3.74 mcda=047) MONOCYTES ABSOLUTE COUNT (BEAKER) (test 1.21 K/ L 0.24-0.36 ziin=363) EOSINOPHILS ABSOLUTE COUNT (BEAKER) (test 0.56 K/ L 0.04-0.36 qwlz=776) BASOPHILS ABSOLUTE COUNT (BEAKER) (test 0.01 K/ L 0.01-0.08 pvqq=529) IMMATURE GRANULOCYTES-RELATIVE PERCENT (BEAKER) 1 % 0-1 (test jkee=7879) RAD, CHEST, 2 [id number] 17:47:00Reason for exam:->shortness of breath, coughShould this be performed at the bedside?->NoFINAL REPORT Chest, two views. CLINICAL HISTORY: Short of breath, cough. COMPARISON STUDY: March 25, 2017. FINDINGS: The cardiac silhouette is enlarged. The patient is status post sternotomy. Airspace disease is seen in the left lung base with increased interstitial markings in the remaining lung judge. A right- sided PICC line is noted. No pleural effusion or pneumothorax is seen. Degenerative changes are noted. IMPRESSION: No significant change. Continuing pulmonary opacities. Pneumonia cannot be excluded in the right clinical setting. Clinical correlation and follow-up imaging are recommended. Signed: Aaron Abbotteport Verified Date/Time: 03/30/2017 17:47:52 Reading Location: [address] Consult Reading Room Electronically signed by: AARON ABBOTT M.D.on 03/30/2017 05:47 PMPOCT-GLUCOSE [id number] 16:58:00 Test Item Value Reference Range Comments POC-GLUCOSE METER (BEAKER) 116 mg/dL 70-[address] [facility] [address] [facility] (test pcez=5134) [facility] [address] POCT-GLUCOSE [id number] 13:04:00 Test Item Value Reference Range Comments POC-GLUCOSE METER (BEAKER) 140 mg/dL 70-110 TESTED AT [place] [id number] [facility] (test ksds=5027) [facility] [address] POCT-GLUCOSE [id number] 07:59:00 Test Item Value Reference Range Comments POC-GLUCOSE METER (BEAKER) 118 mg/dL 70-110 TESTED AT [address] (test uyyz=1774) [facility] [id number] BASIC METABOLIC [id number] 07:43:00 Test Item Value Reference Range Comments SODIUM (BEAKER) (test 140 meq/L 136-145 oibd=542) POTASSIUM (BEAKER) (test 3.9 meq/L 3.5-5.1 wthp=688) CHLORIDE (BEAKER) (test 103 meq/L 98-107 xcto=419) CO2 (BEAKER) (test 32 meq/L 22-29 kuvv=084) BLOOD UREA NITROGEN 22 mg/dL 7-21 (BEAKER) (test qnjv=491) CREATININE (BEAKER) (test 0.87 mg/dL 0.57-1.25 uxoi=361) GLUCOSE RANDOM (BEAKER) 107 mg/dL 70-105 (test rkzh=681) CALCIUM (BEAKER) (test 8.7 mg/dL 8.4-10.2 dvmy=356) EGFR (BEAKER) (test 65 mL/min/1.73 sq m ESTIMATED GFR IS NOT uujk=8641) ACCURATE CREATININE CLEARANCE IN PREDICTING GLOMERULAR FILTRATION RATE. ESTIMATED GFR IS NOT APPLICABLE FOR DIALYSIS PATIENTS. CBC W/PLT COUNT & AUTO [id number] 07:36:00 Test Item Value Reference Range Comments WHITE BLOOD CELL COUNT (BEAKER) (test amlg=658) 12.5 K/ L 3.5-10.5 RED BLOOD CELL COUNT (BEAKER) (test tnfb=934) 2.65 M/ L 3.93-5.22 HEMOGLOBIN (BEAKER) (test dcgo=140) 8.2 GM/DL 11.2-15.7 HEMATOCRIT (BEAKER) (test hpij=685) 26.0 % 34.1-44.9 MEAN CORPUSCULAR VOLUME (BEAKER) (test euar=119) 98.1 fL 79.4-94.8 MEAN CORPUSCULAR HEMOGLOBIN (BEAKER) (test 30.9 pg 25.6-32.2 rbsr=250) MEAN CORPUSCULAR HEMOGLOBIN CONC (BEAKER) (test 31.5 GM/DL 32.2-35.5 kqyd=238) RED CELL DISTRIBUTION WIDTH (BEAKER) (test 14.1 % 11.7-14.4 cavm=859) PLATELET COUNT (BEAKER) (test eatf=136) 423 K/CU MM 150-450 MEAN PLATELET VOLUME (BEAKER) (test txhv=059) 10.3 fL 9.4-12.3 NUCLEATED RED BLOOD CELLS (BEAKER) (test 0 /100 WBC 0-0 xcfd=902) NEUTROPHILS RELATIVE PERCENT (BEAKER) (test 71 % lqpd=530) LYMPHOCYTES RELATIVE PERCENT (BEAKER) (test 13 % aqvu=344) MONOCYTES RELATIVE PERCENT (BEAKER) (test 10 % flne=158) EOSINOPHILS RELATIVE PERCENT (BEAKER) (test 5 % nqpy=425) BASOPHILS RELATIVE PERCENT (BEAKER) (test 0 % bbwh=043) NEUTROPHILS ABSOLUTE COUNT (BEAKER) (test 8.81 K/ L 1.56-6.13 hrhy=101) LYMPHOCYTES ABSOLUTE COUNT (BEAKER) (test 1.64 K/ L 1.18-3.74 kgsm=415) MONOCYTES ABSOLUTE COUNT (BEAKER) (test 1.30 K/ L 0.24-0.36 zfco=638) EOSINOPHILS ABSOLUTE COUNT (BEAKER) (test 0.62 K/ L 0.04-0.36 ohxh=881) BASOPHILS ABSOLUTE COUNT (BEAKER) (test 0.02 K/ L 0.01-0.08 raqw=147) IMMATURE GRANULOCYTES-RELATIVE PERCENT (BEAKER) 1 % 0-1 (test jaiy=5288) POCT-GLUCOSE [id number] 21:04:00 Test Item Value Reference Range Comments POC-GLUCOSE METER (BEAKER) 120 mg/dL 70-[address] [facility] [address] [facility] (test vpid=3845) [facility] [address] POCT-GLUCOSE [id number] 17:49:00 Test Item Value Reference Range Comments POC-GLUCOSE METER (BEAKER) 140 mg/dL 70-110 TESTED AT [address] (test vprx=2698) [facility] [address] POCT-GLUCOSE [id number] 12:29:00 Test Item Value Reference Range Comments POC-GLUCOSE METER (BEAKER) 108 mg/dL 70-110 TESTED AT [address] (test hrmq=2122) [facility] [address] POCT-GLUCOSE [id number] 08:07:00 Test Item Value Reference Range Comments POC-GLUCOSE METER (BEAKER) 127 mg/dL 70-110 TESTED AT [address] (test zqsr=8690) [facility] [address] CBC W/PLT COUNT & AUTO [id number] 07:33:00 Test Item Value Reference Range Comments WHITE BLOOD CELL COUNT (BEAKER) (test viit=140) 14.6 K/ L 3.5-10.5 RED BLOOD CELL COUNT (BEAKER) (test oasg=336) 2.69 M/ L 3.93-5.22 HEMOGLOBIN (BEAKER) (test kgnj=912) 8.4 GM/DL 11.2-15.7 HEMATOCRIT (BEAKER) (test ujxn=907) 26.3 % 34.1-44.9 MEAN CORPUSCULAR VOLUME (BEAKER) (test ixsl=788) 97.8 fL 79.4-94.8 MEAN CORPUSCULAR HEMOGLOBIN (BEAKER) (test 31.2 pg 25.6-32.2 uixb=477) MEAN CORPUSCULAR HEMOGLOBIN CONC (BEAKER) (test 31.9 GM/DL 32.2-35.5 jpxc=108) RED CELL DISTRIBUTION WIDTH (BEAKER) (test 13.7 % 11.7-14.4 ingi=295) PLATELET COUNT (BEAKER) (test nksk=779) 395 K/CU MM 150-450 MEAN PLATELET VOLUME (BEAKER) (test cbgm=052) 10.1 fL 9.4-12.3 NUCLEATED RED BLOOD CELLS (BEAKER) (test 0 /100 WBC 0-0 yngx=304) NEUTROPHILS RELATIVE PERCENT (BEAKER) (test 71 % mxmt=296) LYMPHOCYTES RELATIVE PERCENT (BEAKER) (test 15 % qgxq=598) MONOCYTES RELATIVE PERCENT (BEAKER) (test 8 % ubbk=476) EOSINOPHILS RELATIVE PERCENT (BEAKER) (test 5 % lrlh=034) BASOPHILS RELATIVE PERCENT (BEAKER) (test 0 % fpws=508) NEUTROPHILS ABSOLUTE COUNT (BEAKER) (test 10.43 K/ L 1.56-6.13 zvuy=247) LYMPHOCYTES ABSOLUTE COUNT (BEAKER) (test 2.21 K/ L 1.18-3.74 nfkb=909) MONOCYTES ABSOLUTE COUNT (BEAKER) (test 1.17 K/ L 0.24-0.36 llfp=032) EOSINOPHILS ABSOLUTE COUNT (BEAKER) (test 0.68 K/ L 0.04-0.36 cnco=222) BASOPHILS ABSOLUTE COUNT (BEAKER) (test 0.01 K/ L 0.01-0.08 sulw=613) IMMATURE GRANULOCYTES-RELATIVE PERCENT (BEAKER) 1 % 0-1 (test fesg=9753) BASIC METABOLIC [id number] 07:16:00 Test Item Value Reference Range Comments SODIUM (BEAKER) (test 139 meq/L 136-145 zxmm=509) POTASSIUM (BEAKER) (test 4.0 meq/L 3.5-5.1 iigi=778) CHLORIDE (BEAKER) (test 102 meq/L 98-107 anio=990) CO2 (BEAKER) (test 30 meq/L 22-29 snrd=326) BLOOD UREA NITROGEN 23 mg/dL 7-21 (BEAKER) (test aaau=879) CREATININE (BEAKER) (test 0.86 mg/dL 0.57-1.25 uvkt=478) GLUCOSE RANDOM (BEAKER) 98 mg/dL 70-105 (test txti=848) CALCIUM (BEAKER) (test 8.3 mg/dL 8.4-10.2 vbwr=559) EGFR (BEAKER) (test 66 mL/min/1.73 sq m ESTIMATED GFR IS NOT raro=8004) ACCURATE CREATININE CLEARANCE IN PREDICTING GLOMERULAR FILTRATION RATE. ESTIMATED GFR IS NOT APPLICABLE FOR DIALYSIS PATIENTS. POCT-GLUCOSE [id number] 20:50:00 Test Item Value Reference Range Comments POC-GLUCOSE METER (BEAKER) 206 mg/dL 70-[address] [facility] [address] [facility] (test rgki=5788) [facility] [address] POCT-GLUCOSE [id number] 12:40:00 Test Item Value Reference Range Comments POC-GLUCOSE METER (BEAKER) 229 mg/dL 70-[address] [facility] [address] [facility] (test ehve=0814) [facility] [address] POCT-GLUCOSE [id number] 08:42:00 Test Item Value Reference Range Comments POC-GLUCOSE METER (BEAKER) 104 mg/dL 70-[address] [facility] [address] [facility] (test nvzu=8736) [facility] [address] CBC W/PLT COUNT & AUTO [id number] 08:21:00 Test Item Value Reference Range Comments WHITE BLOOD CELL COUNT (BEAKER) (test mamf=359) 14.2 K/ L 3.5-10.5 RED BLOOD CELL COUNT (BEAKER) (test aosm=846) 2.80 M/ L 3.93-5.22 HEMOGLOBIN (BEAKER) (test ztii=261) 8.6 GM/DL 11.2-15.7 HEMATOCRIT (BEAKER) (test wokb=444) 27.3 % 34.1-44.9 MEAN CORPUSCULAR VOLUME (BEAKER) (test lkhx=252) 97.5 fL 79.4-94.8 MEAN CORPUSCULAR HEMOGLOBIN (BEAKER) (test 30.7 pg 25.6-32.2 niis=047) MEAN CORPUSCULAR HEMOGLOBIN CONC (BEAKER) (test 31.5 GM/DL 32.2-35.5 lczv=067) RED CELL DISTRIBUTION WIDTH (BEAKER) (test 13.4 % 11.7-14.4 uppe=444) PLATELET COUNT (BEAKER) (test rmsc=653) 393 K/CU MM 150-450 MEAN PLATELET VOLUME (BEAKER) (test eegr=189) 10.1 fL 9.4-12.3 NUCLEATED RED BLOOD CELLS (BEAKER) (test 0 /100 WBC 0-0 nknc=127) NEUTROPHILS RELATIVE PERCENT (BEAKER) (test 69 % tthg=483) LYMPHOCYTES RELATIVE PERCENT (BEAKER) (test 17 % dkfz=025) MONOCYTES RELATIVE PERCENT (BEAKER) (test 7 % ymug=950) EOSINOPHILS RELATIVE PERCENT (BEAKER) (test 5 % frcy=520) BASOPHILS RELATIVE PERCENT (BEAKER) (test 0 % jclw=618) NEUTROPHILS ABSOLUTE COUNT (BEAKER) (test 9.88 K/ L 1.56-6.13 buqy=543) LYMPHOCYTES ABSOLUTE COUNT (BEAKER) (test 2.45 K/ L 1.18-3.74 bsnx=551) MONOCYTES ABSOLUTE COUNT (BEAKER) (test 1.01 K/ L 0.24-0.36 pxbt=612) EOSINOPHILS ABSOLUTE COUNT (BEAKER) (test 0.69 K/ L 0.04-0.36 eycl=213) BASOPHILS ABSOLUTE COUNT (BEAKER) (test 0.01 K/ L 0.01-0.08 tfhk=104) IMMATURE GRANULOCYTES-RELATIVE PERCENT (BEAKER) 1 % 0-1 (test kcti=1460) BASIC METABOLIC [id number] 07:54:00 Test Item Value Reference Range Comments SODIUM (BEAKER) (test 136 meq/L 136-145 suhx=761) POTASSIUM (BEAKER) (test 3.9 meq/L 3.5-5.1 xiqg=418) CHLORIDE (BEAKER) (test 100 meq/L 98-107 toyw=539) CO2 (BEAKER) (test 28 meq/L 22-29 xxej=806) BLOOD UREA NITROGEN 28 mg/dL 7-21 (BEAKER) (test zefj=657) CREATININE (BEAKER) (test 0.95 mg/dL 0.57-1.25 lfgt=756) GLUCOSE RANDOM (BEAKER) 110 mg/dL 70-105 (test xthz=303) CALCIUM (BEAKER) (test 8.2 mg/dL 8.4-10.2 wsbi=660) EGFR (BEAKER) (test 59 mL/min/1.73 sq m ESTIMATED GFR IS NOT jkji=7838) ACCURATE CREATININE CLEARANCE IN PREDICTING GLOMERULAR FILTRATION RATE. ESTIMATED GFR IS NOT APPLICABLE FOR DIALYSIS PATIENTS. POCT-GLUCOSE [id number] 20:54:00 Test Item Value Reference Range Comments POC-GLUCOSE METER (BEAKER) 182 mg/dL 70-110 TESTED AT [address] (test rakl=9715) [facility] [address] POCT-GLUCOSE [id number] 17:25:00 Test Item Value Reference Range Comments POC-GLUCOSE METER (BEAKER) 115 mg/dL 70-110 TESTED AT [address] (test gnah=1020) [facility] [address] POCT-GLUCOSE [id number] 12:51:00 Test Item Value Reference Range Comments POC-GLUCOSE METER (BEAKER) 115 mg/dL 70-110 TESTED AT [address] (test hmre=0448) [facility] [address] VANCOMYCIN LEVEL, [id number] 12:19:00 Test Item Value Reference Range Comments VANCOMYCIN TROUGH (BEAKER) (test xrcp=821) 17.4 ug/mL 10.0-20.0 POCT-GLUCOSE [id number] 09:26:00 Test Item Value Reference Range Comments POC-GLUCOSE METER (BEAKER) 110 mg/dL 70-110 TESTED AT [address] (test lygv=4054) [facility] [address] CBC W/PLT COUNT & AUTO [id number] 05:32:00 Test Item Value Reference Range Comments WHITE BLOOD CELL COUNT (BEAKER) (test kidx=019) 14.6 K/ L 3.5-10.5 RED BLOOD CELL COUNT (BEAKER) (test rsua=232) 3.00 M/ L 3.93-5.22 HEMOGLOBIN (BEAKER) (test uheq=668) 9.2 GM/DL 11.2-15.7 HEMATOCRIT (BEAKER) (test gvux=874) 29.1 % 34.1-44.9 MEAN CORPUSCULAR VOLUME (BEAKER) (test pjgn=433) 97.0 fL 79.4-94.8 MEAN CORPUSCULAR HEMOGLOBIN (BEAKER) (test 30.7 pg 25.6-32.2 nmad=245) MEAN CORPUSCULAR HEMOGLOBIN CONC (BEAKER) (test 31.6 GM/DL 32.2-35.5 lhnd=866) RED CELL DISTRIBUTION WIDTH (BEAKER) (test 13.2 % 11.7-14.4 xjvf=893) PLATELET COUNT (BEAKER) (test esll=893) 434 K/CU MM 150-450 MEAN PLATELET VOLUME (BEAKER) (test gpra=054) 9.8 fL 9.4-12.3 NUCLEATED RED BLOOD CELLS (BEAKER) (test 0 /100 WBC 0-0 ramh=483) NEUTROPHILS RELATIVE PERCENT (BEAKER) (test 66 % wsyc=425) LYMPHOCYTES RELATIVE PERCENT (BEAKER) (test 21 % cgsz=100) MONOCYTES RELATIVE PERCENT (BEAKER) (test 8 % rfiv=183) EOSINOPHILS RELATIVE PERCENT (BEAKER) (test 3 % mbiz=435) BASOPHILS RELATIVE PERCENT (BEAKER) (test 0 % kybc=424) NEUTROPHILS ABSOLUTE COUNT (BEAKER) (test 9.61 K/ L 1.56-6.13 gcfh=156) LYMPHOCYTES ABSOLUTE COUNT (BEAKER) (test 3.05 K/ L 1.18-3.74 yzej=168) MONOCYTES ABSOLUTE COUNT (BEAKER) (test 1.16 K/ L 0.24-0.36 xaye=970) EOSINOPHILS ABSOLUTE COUNT (BEAKER) (test 0.50 K/ L 0.04-0.36 bmgd=364) BASOPHILS ABSOLUTE COUNT (BEAKER) (test 0.02 K/ L 0.01-0.08 hlpe=334) IMMATURE GRANULOCYTES-RELATIVE PERCENT (BEAKER) 2 % 0-1 (test pdjl=7310) BASIC METABOLIC [id number] 05:24:00 Test Item Value Reference Range Comments SODIUM (BEAKER) (test 137 meq/L 136-145 tdhr=578) POTASSIUM (BEAKER) (test 3.9 meq/L 3.5-5.1 gxta=818) CHLORIDE (BEAKER) (test 101 meq/L 98-107 erhx=463) CO2 (BEAKER) (test 30 meq/L 22-29 txhk=503) BLOOD UREA NITROGEN 30 mg/dL 7-21 (BEAKER) (test fdzr=128) CREATININE (BEAKER) (test 1.02 mg/dL 0.57-1.25 ekzh=572) GLUCOSE RANDOM (BEAKER) 92 mg/dL 70-105 (test rzem=194) CALCIUM (BEAKER) (test 8.4 mg/dL 8.4-10.2 rwzl=540) EGFR (BEAKER) (test 54 mL/min/1.73 sq m ESTIMATED GFR IS NOT ehnk=9579) ACCURATE CREATININE CLEARANCE IN PREDICTING GLOMERULAR FILTRATION RATE. ESTIMATED GFR IS NOT APPLICABLE FOR DIALYSIS PATIENTS. [id number] 09:49:00 Test Item Value Reference Range Comments MAGNESIUM (BEAKER) (test cagb=376) 1.8 mg/dL 1.6-2.6 B-TYPE NATRIURETIC FACTOR (BNP)[id number] 07:18:00 Test Item Value Reference Range Comments B-TYPE NATRIURETIC PEPTIDE (BEAKER) (test 477 pg/mL 0-100 qphz=023) BASIC METABOLIC [id number] 07:06:00 Test Item Value Reference Range Comments SODIUM (BEAKER) (test 138 meq/L 136-145 ofsp=966) POTASSIUM (BEAKER) (test 3.5 meq/L 3.5-5.1 fpfo=318) CHLORIDE (BEAKER) (test 101 meq/L 98-107 iulz=488) CO2 (BEAKER) (test 26 meq/L 22-29 exuo=759) BLOOD UREA NITROGEN 33 mg/dL 7-21 (BEAKER) (test gbnu=470) CREATININE (BEAKER) (test 0.94 mg/dL 0.57-1.25 vmjj=058) GLUCOSE RANDOM (BEAKER) 89 mg/dL 70-105 (test pjue=560) CALCIUM (BEAKER) (test 8.2 mg/dL 8.4-10.2 azmk=244) EGFR (BEAKER) (test 60 mL/min/1.73 sq m ESTIMATED GFR IS NOT mfum=1868) ACCURATE CREATININE CLEARANCE IN PREDICTING GLOMERULAR FILTRATION RATE. ESTIMATED GFR IS NOT APPLICABLE FOR DIALYSIS PATIENTS. CBC W/PLT COUNT & AUTO [id number] 06:59:00 Test Item Value Reference Range Comments WHITE BLOOD CELL COUNT (BEAKER) (test sdty=827) 14.7 K/ L 3.5-10.5 RED BLOOD CELL COUNT (BEAKER) (test vwyj=196) 3.11 M/ L 3.93-5.22 HEMOGLOBIN (BEAKER) (test kfbx=215) 9.3 GM/DL 11.2-15.7 HEMATOCRIT (BEAKER) (test ttpc=806) 30.0 % 34.1-44.9 MEAN CORPUSCULAR VOLUME (BEAKER) (test oqdl=913) 96.5 fL 79.4-94.8 MEAN CORPUSCULAR HEMOGLOBIN (BEAKER) (test 29.9 pg 25.6-32.2 kxso=608) MEAN CORPUSCULAR HEMOGLOBIN CONC (BEAKER) (test 31.0 GM/DL 32.2-35.5 ecfu=767) RED CELL DISTRIBUTION WIDTH (BEAKER) (test 13.3 % 11.7-14.4 rkqb=743) PLATELET COUNT (BEAKER) (test uahe=055) 480 K/CU MM 150-450 MEAN PLATELET VOLUME (BEAKER) (test wikt=928) 10.1 fL 9.4-12.3 NUCLEATED RED BLOOD CELLS (BEAKER) (test 0 /100 WBC 0-0 mrgi=170) NEUTROPHILS RELATIVE PERCENT (BEAKER) (test 70 % ozyr=813) LYMPHOCYTES RELATIVE PERCENT (BEAKER) (test 18 % yykt=957) MONOCYTES RELATIVE PERCENT (BEAKER) (test 9 % wndv=771) EOSINOPHILS RELATIVE PERCENT (BEAKER) (test 0 % vhab=833) BASOPHILS RELATIVE PERCENT (BEAKER) (test 0 % gneu=467) NEUTROPHILS ABSOLUTE COUNT (BEAKER) (test 10.26 K/ L 1.56-6.13 bavx=871) LYMPHOCYTES ABSOLUTE COUNT (BEAKER) (test 2.70 K/ L 1.18-3.74 cemj=248) MONOCYTES ABSOLUTE COUNT (BEAKER) (test 1.36 K/ L 0.24-0.36 ptsj=452) EOSINOPHILS ABSOLUTE COUNT (BEAKER) (test 0.04 K/ L 0.04-0.36 fzxw=323) BASOPHILS ABSOLUTE COUNT (BEAKER) (test 0.01 K/ L 0.01-0.08 jvat=716) IMMATURE GRANULOCYTES-RELATIVE PERCENT (BEAKER) 2 % 0-1 (test cbme=0538) [id number] 00:26:00 Test Item Value Reference Range Comments POTASSIUM (BEAKER) (test vntr=436) 3.7 meq/L 3.5-5.1 [id number] 00:26:00 Test Item Value Reference Range Comments MAGNESIUM (BEAKER) (test nmsc=794) 1.8 mg/dL 1.6-2.6 POCT-GLUCOSE [id number] 21:56:00 Test Item Value Reference Range Comments POC-GLUCOSE METER (BEAKER) 89 mg/dL 70-[address] [facility] [address] [facility] (test mrau=4122) [facility] [address] [id number] 18:11:00 Test Item Value Reference Range Comments MAGNESIUM (BEAKER) (test 2.2 mg/dL 1.6-2.6 Specimen slightly hemolyzed tvim=118) [id number] 18:11:00 Test Item Value Reference Range Comments POTASSIUM (BEAKER) (test 3.8 meq/L 3.5-5.1 Specimen slightly hemolyzed xfbt=706) POCT-GLUCOSE [id number] 17:51:00 Test Item Value Reference Range Comments POC-GLUCOSE METER (BEAKER) 197 mg/dL 70-[address] [facility] [address] [facility] (test gyck=8649) [facility] [address] POCT-GLUCOSE [id number] 13:08:00 Test Item Value Reference Range Comments POC-GLUCOSE METER (BEAKER) 180 mg/dL 70-110 TESTED AT [place] [id number] [facility] (test inxo=0620) [facility] [address] POCT-GLUCOSE [id number] 08:47:00 Test Item Value Reference Range Comments POC-GLUCOSE METER (BEAKER) 141 mg/dL 70-110 TESTED AT [address] (test bogj=7800) [place] [id number] RAD, CHEST, 1 VIEW, NON [id number] 07:45:00Reason for exam:->monitoring improvement in pneumoniaShould this be performed at the bedside?->YesFINAL REPORT Chest one view AP 03/25/2017 7:44 AM CLINICAL INDICATION: monitoring improvement in pneumonia COMPARISON: 03/24/2017 IMPRESSION: Bilateral pulmonary opacities are unchanged and suggest multifocal pneumonia. There is a small volume left pleural effusion. Cardiomediastinal contours are stable. The central pulmonary vasculature is not engorged. Support hardware is unchanged in position. Signed: Sanket Burgess Verified Date/Time: 03/25/2017 07:45:07 ReadingLocation: [facility] B1 C013V Neuro Reading Room CBC W/PLT COUNT & AUTO [id number] 05:21:00 Test Item Value Reference Range Comments WHITE BLOOD CELL COUNT (BEAKER) (test tllp=674) 13.4 K/ L 3.5-10.5 RED BLOOD CELL COUNT (BEAKER) (test dodp=218) 3.00 M/ L 3.93-5.22 HEMOGLOBIN (BEAKER) (test tkuq=810) 9.1 GM/DL 11.2-15.7 HEMATOCRIT (BEAKER) (test zhbs=826) 28.3 % 34.1-44.9 MEAN CORPUSCULAR VOLUME (BEAKER) (test kroi=899) 94.3 fL 79.4-94.8 MEAN CORPUSCULAR HEMOGLOBIN (BEAKER) (test 30.3 pg 25.6-32.2 sukz=111) MEAN CORPUSCULAR HEMOGLOBIN CONC (BEAKER) (test 32.2 GM/DL 32.2-35.5 bfqn=066) RED CELL DISTRIBUTION WIDTH (BEAKER) (test 13.1 % 11.7-14.4 eifo=152) PLATELET COUNT (BEAKER) (test pymk=526) 449 K/CU MM 150-450 MEAN PLATELET VOLUME (BEAKER) (test dqno=950) 9.7 fL 9.4-12.3 NUCLEATED RED BLOOD CELLS (BEAKER) (test 0 /100 WBC 0-0 pmjn=715) NEUTROPHILS RELATIVE PERCENT (BEAKER) (test 83 % lqzb=520) LYMPHOCYTES RELATIVE PERCENT (BEAKER) (test 8 % ucbf=454) MONOCYTES RELATIVE PERCENT (BEAKER) (test 4 % wngv=067) EOSINOPHILS RELATIVE PERCENT (BEAKER) (test 0 % gloa=648) BASOPHILS RELATIVE PERCENT (BEAKER) (test 0 % cwmc=818) NEUTROPHILS ABSOLUTE COUNT (BEAKER) (test 11.12 K/ L 1.56-6.13 ucih=672) LYMPHOCYTES ABSOLUTE COUNT (BEAKER) (test 1.05 K/ L 1.18-3.74 bpak=957) MONOCYTES ABSOLUTE COUNT (BEAKER) (test 0.54 K/ L 0.24-0.36 bwyo=501) EOSINOPHILS ABSOLUTE COUNT (BEAKER) (test 0.00 K/ L 0.04-0.36 epyo=062) BASOPHILS ABSOLUTE COUNT (BEAKER) (test 0.01 K/ L 0.01-0.08 gust=145) IMMATURE GRANULOCYTES-RELATIVE PERCENT (BEAKER) 5 % 0-1 (test ards=6659) BASIC METABOLIC [id number] 05:03:00 Test Item Value Reference Range Comments SODIUM (BEAKER) (test 138 meq/L 136-145 hkwb=433) POTASSIUM (BEAKER) (test 3.6 meq/L 3.5-5.1 mpyr=992) CHLORIDE (BEAKER) (test 100 meq/L 98-107 ppiq=164) CO2 (BEAKER) (test 29 meq/L 22-29 wsuv=439) BLOOD UREA NITROGEN 32 mg/dL 7-21 (BEAKER) (test pblf=381) CREATININE (BEAKER) (test 0.90 mg/dL 0.57-1.25 yoqf=369) GLUCOSE RANDOM (BEAKER) 175 mg/dL 70-105 (test khxg=832) CALCIUM (BEAKER) (test 8.2 mg/dL 8.4-10.2 ihkz=985) EGFR (BEAKER) (test 63 mL/min/1.73 sq m ESTIMATED GFR IS NOT wgmy=0277) ACCURATE CREATININE CLEARANCE IN PREDICTING GLOMERULAR FILTRATION RATE. ESTIMATED GFR IS NOT APPLICABLE FOR DIALYSIS PATIENTS. [id number] 00:29:00 Test Item Value Reference Range Comments POTASSIUM (BEAKER) (test pjzx=996) 3.7 meq/L 3.5-5.1 [id number] 00:29:00 Test Item Value Reference Range Comments MAGNESIUM (BEAKER) (test khdn=000) 2.3 mg/dL 1.6-2.6 POCT-GLUCOSE [id number] 22:55:00 Test Item Value Reference Range Comments POC-GLUCOSE METER (BEAKER) 152 mg/dL 70-110 TESTED AT [address] (test ciiq=8921) [facility] [address] POCT-GLUCOSE [id number] 18:14:00 Test Item Value Reference Range Comments POC-GLUCOSE METER (BEAKER) 89 mg/dL 70-110 TESTED AT [address] (test cpmb=5865) [facility] [address] VANCOMYCIN LEVEL, [id number] 16:30:00 Test Item Value Reference Range Comments VANCOMYCIN TROUGH (BEAKER) (test lcdl=359) 13.0 ug/mL 10.0-20.0 [id number] 16:25:00 Test Item Value Reference Range Comments POTASSIUM (BEAKER) (test jtpt=481) 3.5 meq/L 3.5-5.1 [id number] 16:25:00 Test Item Value Reference Range Comments MAGNESIUM (BEAKER) (test tgtt=712) 1.9 mg/dL 1.6-2.6 POCT-GLUCOSE [id number] 12:58:00 Test Item Value Reference Range Comments POC-GLUCOSE METER (BEAKER) 226 mg/dL 70-[address] [facility] [address] [facility] (test fmyq=7855) [facility] [address] POCT-GLUCOSE [id number] 08:42:00 Test Item Value Reference Range Comments POC-GLUCOSE METER (BEAKER) 156 mg/dL 70-[address] [facility] [address] [facility] (test okox=1676) [facility] [address] RAD, CHEST, 1 VIEW, NON [id number] 08:36:00Reason for exam:->monitoring improvement in pneumoniaShould this be performed at the bedside?->YesFINAL REPORT Chest one view. Clinical history: monitoring improvement in pneumonia Comparison: 03/23/2017 Discussion: A frontal chest is provided. Cardiomediastinal contours areunchanged. Right PICC line is in stable position. Unchanged bilateral airspace opacities. There jaylen suspected left effusion. No pneumothorax. Low lung volume. Signed: Mariana Mcgowan Verified Date/Time: 03/24/2017 08:36:51 Reading Location: [facility] Radiology Reading Room Electronically signed by: MARIANA MCGOWAN M.D. on 03/24 08:36 AMCBC W/PLT COUNT & AUTO [id number] 06:44:00 Test Item Value Reference Range Comments WHITE BLOOD CELL COUNT (BEAKER) (test zuql=093) 15.4 K/ L 3.5-10.5 RED BLOOD CELL COUNT (BEAKER) (test cxee=923) 2.72 M/ L 3.93-5.22 HEMOGLOBIN (BEAKER) (test iing=854) 8.2 GM/DL 11.2-15.7 HEMATOCRIT (BEAKER) (test dhqh=727) 25.9 % 34.1-44.9 MEAN CORPUSCULAR VOLUME (BEAKER) (test pbxj=522) 95.2 fL 79.4-94.8 MEAN CORPUSCULAR HEMOGLOBIN (BEAKER) (test 30.1 pg 25.6-32.2 umeg=224) MEAN CORPUSCULAR HEMOGLOBIN CONC (BEAKER) (test 31.7 GM/DL 32.2-35.5 bclk=290) RED CELL DISTRIBUTION WIDTH (BEAKER) (test 13.0 % 11.7-14.4 niyq=156) PLATELET COUNT (BEAKER) (test anjs=305) 397 K/CU MM 150-450 MEAN PLATELET VOLUME (BEAKER) (test cbwo=787) 10.0 fL 9.4-12.3 NUCLEATED RED BLOOD CELLS (BEAKER) (test 0 /100 WBC 0-0 mpfv=370) NEUTROPHILS RELATIVE PERCENT (BEAKER) (test 84 % ggjt=390) LYMPHOCYTES RELATIVE PERCENT (BEAKER) (test 9 % vbfo=942) MONOCYTES RELATIVE PERCENT (BEAKER) (test 5 % ksva=664) EOSINOPHILS RELATIVE PERCENT (BEAKER) (test 0 % bfcu=508) BASOPHILS RELATIVE PERCENT (BEAKER) (test 0 % mtlf=462) NEUTROPHILS ABSOLUTE COUNT (BEAKER) (test 12.98 K/ L 1.56-6.13 wtdn=140) LYMPHOCYTES ABSOLUTE COUNT (BEAKER) (test 1.34 K/ L 1.18-3.74 ycpc=124) MONOCYTES ABSOLUTE COUNT (BEAKER) (test 0.76 K/ L 0.24-0.36 hrdt=834) EOSINOPHILS ABSOLUTE COUNT (BEAKER) (test 0.00 K/ L 0.04-0.36 dzpk=176) BASOPHILS ABSOLUTE COUNT (BEAKER) (test 0.01 K/ L 0.01-0.08 xwqr=088) IMMATURE GRANULOCYTES-RELATIVE PERCENT (BEAKER) 2 % 0-1 (test qaai=0002) BASIC METABOLIC [id number] 06:34:00 Test Item Value Reference Range Comments SODIUM (BEAKER) (test 136 meq/L 136-145 xnkg=190) POTASSIUM (BEAKER) (test 4.1 meq/L 3.5-5.1 nabw=576) CHLORIDE (BEAKER) (test 97 meq/L 98-107 bhfx=896) CO2 (BEAKER) (test 31 meq/L 22-29 zdrw=405) BLOOD UREA NITROGEN 36 mg/dL 7-21 (BEAKER) (test jlbo=683) CREATININE (BEAKER) (test 0.96 mg/dL 0.57-1.25 nvps=868) GLUCOSE RANDOM (BEAKER) 143 mg/dL 70-105 (test bgkp=756) CALCIUM (BEAKER) (test 8.7 mg/dL 8.4-10.2 ssjf=876) EGFR (BEAKER) (test 58 mL/min/1.73 sq m ESTIMATED GFR IS NOT hfeb=2944) ACCURATE CREATININE CLEARANCE IN PREDICTING GLOMERULAR FILTRATION RATE. ESTIMATED GFR IS NOT APPLICABLE FOR DIALYSIS PATIENTS. [id number] 00:39:00 Test Item Value Reference Range Comments POTASSIUM (BEAKER) (test pnaq=483) 3.7 meq/L 3.5-5.1 [id number] 00:39:00 Test Item Value Reference Range Comments MAGNESIUM (BEAKER) (test htya=471) 1.9 mg/dL 1.6-2.6 POCT-GLUCOSE [id number] 22:24:00 Test Item Value Reference Range Comments POC-GLUCOSE METER (BEAKER) 141 mg/dL 70-110 TESTED AT [address] (test dtbw=2039) [place] [address] POCT-GLUCOSE [id number] 18:04:00 Test Item Value Reference Range Comments POC-GLUCOSE METER (BEAKER) 221 mg/dL 70-110 TESTED AT [address] (test avkm=0071) [place] [address] [id number] 17:36:00 Test Item Value Reference Range Comments POTASSIUM (BEAKER) (test unew=228) 3.6 meq/L 3.5-5.1 [id number] 17:36:00 Test Item Value Reference Range Comments MAGNESIUM (BEAKER) (test eefz=545) 1.7 mg/dL 1.6-2.6 [id number] 14:37:00 Test Item Value Reference Range Comments POTASSIUM (BEAKER) (test gcll=513) 3.7 meq/L 3.5-5.1 [id number] 14:37:00 Test Item Value Reference Range Comments MAGNESIUM (BEAKER) (test dqzy=325) 2.1 mg/dL 1.6-2.6 POCT-GLUCOSE [id number] 12:46:00 Test Item Value Reference Range Comments POC-GLUCOSE METER (BEAKER) 218 mg/dL 70-110 TESTED AT [address] (test qmkt=3643) [place] [id number] RAD, CHEST, 1 VIEW, NON [id number] 09:02:00Reason for exam:->monitoring improvement in pneumoniaShould this be performed at the bedside?->YesFINAL REPORT Chest one view. Clinical history: monitoring improvement in pneumonia Comparison: 03/22/2017 Discussion: A frontal chest is provided. Cardiomediastinal contours areunchanged. Right PICC line is in stable position. Left-sided pleural parenchymal opacity is stable, and patchy opacities in the right lung is also not significantly changed. No pneumothorax. Signed: Mariana Mcgowan Verified Date/Time: 03/23/2017 09:02:10 Reading Location: [facility] Radiology Reading Room POCT-GLUCOSE [id number] 08:34:00 Test Item Value Reference Range Comments POC-GLUCOSE METER (BEAKER) 177 mg/dL 70-[address] [facility] [address] (test nlzt=4700) [facility] [address] CALCIUM, [id number] 05:54:00 Test Item Value Reference Range Comments CALCIUM IONIZED (BEAKER) (test ubho=641) 1.11 mmol/L 1.12-1.27 PH, BLOOD (BEAKER) (test jgbq=4163) 7.41 CBC W/PLT COUNT & AUTO [id number] 05:26:00 Test Item Value Reference Range Comments WHITE BLOOD CELL COUNT (BEAKER) (test cyfp=275) 11.7 K/ L 3.5-10.5 RED BLOOD CELL COUNT (BEAKER) (test goug=877) 2.90 M/ L 3.93-5.22 HEMOGLOBIN (BEAKER) (test wjcl=122) 8.7 GM/DL 11.2-15.7 HEMATOCRIT (BEAKER) (test ufyr=422) 27.3 % 34.1-44.9 MEAN CORPUSCULAR VOLUME (BEAKER) (test oggt=794) 94.1 fL 79.4-94.8 MEAN CORPUSCULAR HEMOGLOBIN (BEAKER) (test 30.0 pg 25.6-32.2 pqrs=430) MEAN CORPUSCULAR HEMOGLOBIN CONC (BEAKER) (test 31.9 GM/DL 32.2-35.5 avdm=326) RED CELL DISTRIBUTION WIDTH (BEAKER) (test 12.5 % 11.7-14.4 vzcj=574) PLATELET COUNT (BEAKER) (test uyfq=902) 371 K/CU MM 150-450 MEAN PLATELET VOLUME (BEAKER) (test psdu=096) 10.2 fL 9.4-12.3 NUCLEATED RED BLOOD CELLS (BEAKER) (test 0 /100 WBC 0-0 foic=866) NEUTROPHILS RELATIVE PERCENT (BEAKER) (test 89 % ooeb=770) LYMPHOCYTES RELATIVE PERCENT (BEAKER) (test 7 % qhub=068) MONOCYTES RELATIVE PERCENT (BEAKER) (test 2 % srwh=450) EOSINOPHILS RELATIVE PERCENT (BEAKER) (test 0 % rkic=515) BASOPHILS RELATIVE PERCENT (BEAKER) (test 0 % avlz=094) NEUTROPHILS ABSOLUTE COUNT (BEAKER) (test 10.50 K/ L 1.56-6.13 drty=031) LYMPHOCYTES ABSOLUTE COUNT (BEAKER) (test 0.85 K/ L 1.18-3.74 lbmc=197) MONOCYTES ABSOLUTE COUNT (BEAKER) (test 0.21 K/ L 0.24-0.36 lnff=308) EOSINOPHILS ABSOLUTE COUNT (BEAKER) (test 0.00 K/ L 0.04-0.36 hfco=808) BASOPHILS ABSOLUTE COUNT (BEAKER) (test 0.02 K/ L 0.01-0.08 ssfn=994) IMMATURE GRANULOCYTES-RELATIVE PERCENT (BEAKER) 1 % 0-1 (test tkoe=1963) [id number] 04:57:00 Test Item Value Reference Range Comments PHOSPHORUS (BEAKER) (test hczn=025) 3.2 mg/dL 2.3-4.7 BASIC METABOLIC [id number] 04:57:00 Test Item Value Reference Range Comments SODIUM (BEAKER) (test 136 meq/L 136-145 nsbs=973) POTASSIUM (BEAKER) (test 3.6 meq/L 3.5-5.1 yqri=262) CHLORIDE (BEAKER) (test 94 meq/L 98-107 hqtr=700) CO2 (BEAKER) (test 32 meq/L 22-29 ytnm=988) BLOOD UREA NITROGEN 22 mg/dL 7-21 (BEAKER) (test bkxj=014) CREATININE (BEAKER) (test 0.85 mg/dL 0.57-1.25 jbst=308) GLUCOSE RANDOM (BEAKER) 143 mg/dL 70-105 (test utfw=450) CALCIUM (BEAKER) (test 9.1 mg/dL 8.4-10.2 frth=383) EGFR (BEAKER) (test 67 mL/min/1.73 sq m ESTIMATED GFR IS NOT eies=8343) ACCURATE CREATININE CLEARANCE IN PREDICTING GLOMERULAR FILTRATION RATE. ESTIMATED GFR IS NOT APPLICABLE FOR DIALYSIS PATIENTS. [id number] 00:39:00 Test Item Value Reference Range Comments POTASSIUM (BEAKER) (test ebaf=596) 3.9 meq/L 3.5-5.1 [id number] 00:39:00 Test Item Value Reference Range Comments MAGNESIUM (BEAKER) (test vukf=915) 1.9 mg/dL 1.6-2.6 POCT-GLUCOSE [id number] 22:55:00 Test Item Value Reference Range Comments POC-GLUCOSE METER (BEAKER) 163 mg/dL 70-110 TESTED AT [address] (test frqc=4461) [place] [id number] VANCOMYCIN LEVEL, [id number] 21:26:00 Test Item Value Reference Range Comments VANCOMYCIN TROUGH (BEAKER) (test xwsy=469) 24.3 ug/mL 10.0-20.0 [id number] 17:07:00 Test Item Value Reference Range Comments MAGNESIUM (BEAKER) (test 2.0 mg/dL 1.6-2.6 Specimen slightly hemolyzed bobz=531) [id number] 17:07:00 Test Item Value Reference Range Comments POTASSIUM (BEAKER) (test 4.1 meq/L 3.5-5.1 Specimen slightly hemolyzed bzeb=044) POCT-GLUCOSE [id number] 16:50:00 Test Item Value Reference Range Comments POC-GLUCOSE METER (BEAKER) 160 mg/dL 70-110 TESTED AT [address] (test qlko=4850) [facility] [address] POCT-GLUCOSE [id number] 12:15:00 Test Item Value Reference Range Comments POC-GLUCOSE METER (BEAKER) 143 mg/dL 70-110 TESTED AT [address] (test jnic=0309) [facility] [address] RAD, CHEST, 1 VIEW, NON [id number] 12:04:00Reason for exam:->PICC Placement Should this be performed at the bedside?->Yes Reason for exam:-> PICC Placement Should this be performed at the bedside?->YesFINAL REPORT Chest one view. Clinical history: PICC PlacementPICC Placement Comparison: March 21, 2017 Discussion: A frontal chest is provided. Cardiomediastinal contours areunchanged. There is interval placement of a right PICC line, tip projects over the SVC. Right IJ line is in stable position. Unchanged bilateral airspace opacities. There is a probable small left effusion. No pneumothorax. Signed: Mariana Mcgowan Verified Date/ Time: 03/22/2017 12:04:01 Reading Location: [facility] Radiology Reading Room [id number] 09:44:00 Test Item Value Reference Range Comments POTASSIUM (BEAKER) (test jixn=930) 4.1 meq/L 3.5-5.1 [id number] 09:44:00 Test Item Value Reference Range Comments MAGNESIUM (BEAKER) (test izvu=658) 2.3 mg/dL 1.6-2.6 POCT-GLUCOSE [id number] 08:41:00 Test Item Value Reference Range Comments POC-GLUCOSE METER (BEAKER) 119 mg/dL 70-[address] [facility] [address] [facility] (test zela=9990) [facility] [address] [id number] 04:00:00 Test Item Value Reference Range Comments PHOSPHORUS (BEAKER) (test uvdj=780) 2.3 mg/dL 2.3-4.7 BASIC METABOLIC [id number] 04:00:00 Test Item Value Reference Range Comments SODIUM (BEAKER) (test 135 meq/L 136-145 smof=219) POTASSIUM (BEAKER) (test 4.2 meq/L 3.5-5.1 jvof=719) CHLORIDE (BEAKER) (test 95 meq/L 98-107 dvbv=469) CO2 (BEAKER) (test 31 meq/L 22-29 yeuf=234) BLOOD UREA NITROGEN 17 mg/dL 7-21 (BEAKER) (test etnz=176) CREATININE (BEAKER) (test 0.81 mg/dL 0.57-1.25 arxr=429) GLUCOSE RANDOM (BEAKER) 124 mg/dL 70-105 (test lzag=752) CALCIUM (BEAKER) (test 8.8 mg/dL 8.4-10.2 qzfd=617) EGFR (BEAKER) (test 71 mL/min/1.73 sq m ESTIMATED GFR IS NOT ksao=6205) ACCURATE CREATININE CLEARANCE IN PREDICTING GLOMERULAR FILTRATION RATE. ESTIMATED GFR IS NOT APPLICABLE FOR DIALYSIS PATIENTS. CALCIUM, [id number] 03:42:00 Test Item Value Reference Range Comments CALCIUM IONIZED (BEAKER) (test qtec=614) 1.13 mmol/L 1.12-1.27 PH, BLOOD (BEAKER) (test kjdr=6567) 7.39 CBC W/PLT COUNT & AUTO [id number] 03:41:00 Test Item Value Reference Range Comments WHITE BLOOD CELL COUNT (BEAKER) (test qbeq=898) 11.8 K/ L 3.5-10.5 RED BLOOD CELL COUNT (BEAKER) (test nfvj=272) 2.93 M/ L 3.93-5.22 HEMOGLOBIN (BEAKER) (test ryqs=805) 8.7 GM/DL 11.2-15.7 HEMATOCRIT (BEAKER) (test crrt=897) 27.9 % 34.1-44.9 MEAN CORPUSCULAR VOLUME (BEAKER) (test ncqi=978) 95.2 fL 79.4-94.8 MEAN CORPUSCULAR HEMOGLOBIN (BEAKER) (test 29.7 pg 25.6-32.2 jhoy=543) MEAN CORPUSCULAR HEMOGLOBIN CONC (BEAKER) (test 31.2 GM/DL 32.2-35.5 mtmu=622) RED CELL DISTRIBUTION WIDTH (BEAKER) (test 12.6 % 11.7-14.4 lzwn=892) PLATELET COUNT (BEAKER) (test njkc=515) 321 K/CU MM 150-450 MEAN PLATELET VOLUME (BEAKER) (test stkb=636) 10.1 fL 9.4-12.3 NUCLEATED RED BLOOD CELLS (BEAKER) (test 0 /100 WBC 0-0 mwxc=770) NEUTROPHILS RELATIVE PERCENT (BEAKER) (test 71 % lnai=076) LYMPHOCYTES RELATIVE PERCENT (BEAKER) (test 14 % pwel=221) MONOCYTES RELATIVE PERCENT (BEAKER) (test 9 % hueu=020) EOSINOPHILS RELATIVE PERCENT (BEAKER) (test 5 % xnrg=397) BASOPHILS RELATIVE PERCENT (BEAKER) (test 0 % xfrl=638) NEUTROPHILS ABSOLUTE COUNT (BEAKER) (test 8.30 K/ L 1.56-6.13 bbte=205) LYMPHOCYTES ABSOLUTE COUNT (BEAKER) (test 1.63 K/ L 1.18-3.74 dtvx=268) MONOCYTES ABSOLUTE COUNT (BEAKER) (test 1.08 K/ L 0.24-0.36 reyt=462) EOSINOPHILS ABSOLUTE COUNT (BEAKER) (test 0.64 K/ L 0.04-0.36 fmpw=655) BASOPHILS ABSOLUTE COUNT (BEAKER) (test 0.05 K/ L 0.01-0.08 uutg=834) IMMATURE GRANULOCYTES-RELATIVE PERCENT (BEAKER) 1 % 0-1 (test sjuj=3119) [id number] 23:13:00 Test Item Value Reference Range Comments POTASSIUM (BEAKER) (test efqc=329) 3.8 meq/L 3.5-5.1 [id number] 23:13:00 Test Item Value Reference Range Comments MAGNESIUM (BEAKER) (test rvhl=260) 1.8 mg/dL 1.6-2.6 POCT-GLUCOSE [id number] 21:37:00 Test Item Value Reference Range Comments POC-GLUCOSE METER (BEAKER) 136 mg/dL 70-110 TESTED AT [address] (test eazm=4567) [facility] [address] POCT-GLUCOSE [id number] 17:01:00 Test Item Value Reference Range Comments POC-GLUCOSE METER (BEAKER) 101 mg/dL 70-110 TESTED AT [address] (test mxrl=3761) [facility] [address] [id number] 16:24:00 Test Item Value Reference Range Comments POTASSIUM (BEAKER) (test zplk=246) 3.9 meq/L 3.5-5.1 [id number] 16:24:00 Test Item Value Reference Range Comments MAGNESIUM (BEAKER) (test mekx=552) 2.0 mg/dL 1.6-2.6 CT, CHEST, WITHOUT [id number] 14:48:00FINAL REPORT INDICATION: 66-year-old female with shortness of breath and hypoxia. COMPARISON:March 21, 2017 TECHNIQUE: Chest CT exam WITHOUT intravenous contrast. The exam wasperformed according to our department dose-optimization protocol, which includes automated exposure control, adjustments of mA and kV according to patient size. Iterative reconstructions are also sometimes employed. FINDINGS:There is complete consolidation of the left basilar segments and partial consolidation of the right basilar segments, representing pneumonia. There are upper lung scattered groundglass opacities and interlobular septal thickening probably representing pulmonary edema. Patient isstatus post coronary artery bypass surgery. There is a moderate pericardial effusion. Heart is not enlarged. There are bilateral tiny pleural effusions. No pneumothorax. No mediastinal or hilar lymphadenopathy is demonstrated. Thyroid gland and esophagus are unremarkable. Partial imaging of the upper abdomen is notable for medullary nephrocalcinosis and a 3.7 x 3.0 cm soft tissue and fat density massof the left adrenal gland, representing an adrenal myelolipoma. No suspicious osseous lesion demonstrated. Patient is status post median sternotomy. IMPRESSION: Bibasilar pneumonia. Upper lung groundglass opacities and interlobular septal thickening, probably representing mild pulmonary edema. Moderate pericardial effusion. Medullary nephrocalcinosis. 3.7 cm left adrenal myelolipoma (benign tumor). Signed: Jay Mariano MDReport Verified Date/Time : 03/21/2017 14:48:30 Reading Location: [address] Transitional Reading Room POCT-GLUCOSE [id number] 12:33:00 Test Item Value Reference Range Comments POC-GLUCOSE METER (BEAKER) 125 mg/dL 70-[address] [facility] [address] [facility] (test nfns=7786) [facility] [address] [id number] 09:09:00 Test Item Value Reference Range Comments POTASSIUM (BEAKER) (test ycss=840) 3.9 meq/L 3.5-5.1 [id number] 09:09:00 Test Item Value Reference Range Comments MAGNESIUM (BEAKER) (test uxzs=636) 2.1 mg/dL 1.6-2.6 POCT-GLUCOSE [id number] 08:05:00 Test Item Value Reference Range Comments POC-GLUCOSE METER (BEAKER) 114 mg/dL 70-[address] [facility] [address] (test kohg=7306) [facility] [address] RAD, CHEST, 1 VIEW, NON [id number] 07:40:00Reason for exam:->CT in placeShould this be performed at the bedside?->YesFINAL REPORT INDICATION: CT in place COMPARISON: March 20, 2017 TECHNIQUE:Chest radiograph, single view, portable technique. FINDINGS / IMPRESSION: No chest tube is identified. There is a right internal jugular line terminates at the cavoatrial junction. Right upper, right perihilar, and left perihilar nodular opacities have increased in conspicuity, favor multifocal pneumonia or aspiration over edema. Again demonstrated is a small left pleural effusion. No pneumothorax. Signed: Jay Mariano MDReport Verified Date/Time: 03/21/2017 07:40:38 Reading Location: [address] Transitional Reading Room [id number] 04:15:00 Test Item Value Reference Range Comments PHOSPHORUS (BEAKER) (test txwr=405) 2.1 mg/dL 2.3-4.7 BASIC METABOLIC [id number] 04:15:00 Test Item Value Reference Range Comments SODIUM (BEAKER) (test 134 meq/L 136-145 yadj=590) POTASSIUM (BEAKER) (test 4.1 meq/L 3.5-5.1 zabv=420) CHLORIDE (BEAKER) (test 93 meq/L 98-107 jpmf=739) CO2 (BEAKER) (test 33 meq/L 22-29 mqbf=047) BLOOD UREA NITROGEN 14 mg/dL 7-21 (BEAKER) (test nmkx=128) CREATININE (BEAKER) (test 0.84 mg/dL 0.57-1.25 zbcf=422) GLUCOSE RANDOM (BEAKER) 111 mg/dL 70-105 (test imyv=356) CALCIUM (BEAKER) (test 8.5 mg/dL 8.4-10.2 eqsh=817) EGFR (BEAKER) (test 68 mL/min/1.73 sq m ESTIMATED GFR IS NOT nzwr=5241) ACCURATE CREATININE CLEARANCE IN PREDICTING GLOMERULAR FILTRATION RATE. ESTIMATED GFR IS NOT APPLICABLE FOR DIALYSIS PATIENTS. CALCIUM, [id number] 03:47:00 Test Item Value Reference Range Comments CALCIUM IONIZED (BEAKER) (test zpig=132) 1.11 mmol/L 1.12-1.27 PH, BLOOD (BEAKER) (test vyzn=3384) 7.38 CBC W/PLT COUNT & AUTO [id number] 03:37:00 Test Item Value Reference Range Comments WHITE BLOOD CELL COUNT (BEAKER) (test mwww=420) 11.1 K/ L 3.5-10.5 RED BLOOD CELL COUNT (BEAKER) (test rzpd=359) 2.79 M/ L 3.93-5.22 HEMOGLOBIN (BEAKER) (test hxeu=583) 8.3 GM/DL 11.2-15.7 HEMATOCRIT (BEAKER) (test bvvv=655) 26.4 % 34.1-44.9 MEAN CORPUSCULAR VOLUME (BEAKER) (test mxjg=979) 94.6 fL 79.4-94.8 MEAN CORPUSCULAR HEMOGLOBIN (BEAKER) (test 29.7 pg 25.6-32.2 mmjm=807) MEAN CORPUSCULAR HEMOGLOBIN CONC (BEAKER) (test 31.4 GM/DL 32.2-35.5 vqhe=233) RED CELL DISTRIBUTION WIDTH (BEAKER) (test 12.5 % 11.7-14.4 erxy=935) PLATELET COUNT (BEAKER) (test qdkv=912) 277 K/CU MM 150-450 MEAN PLATELET VOLUME (BEAKER) (test mirr=434) 10.3 fL 9.4-12.3 NUCLEATED RED BLOOD CELLS (BEAKER) (test 0 /100 WBC 0-0 lpls=211) NEUTROPHILS RELATIVE PERCENT (BEAKER) (test 71 % noje=510) LYMPHOCYTES RELATIVE PERCENT (BEAKER) (test 14 % iwdx=791) MONOCYTES RELATIVE PERCENT (BEAKER) (test 9 % uinr=350) EOSINOPHILS RELATIVE PERCENT (BEAKER) (test 5 % buyd=009) BASOPHILS RELATIVE PERCENT (BEAKER) (test 1 % teyd=067) NEUTROPHILS ABSOLUTE COUNT (BEAKER) (test 7.93 K/ L 1.56-6.13 soel=126) LYMPHOCYTES ABSOLUTE COUNT (BEAKER) (test 1.52 K/ L 1.18-3.74 huey=411) MONOCYTES ABSOLUTE COUNT (BEAKER) (test 1.04 K/ L 0.24-0.36 ivhm=110) EOSINOPHILS ABSOLUTE COUNT (BEAKER) (test 0.53 K/ L 0.04-0.36 tefo=508) BASOPHILS ABSOLUTE COUNT (BEAKER) (test 0.07 K/ L 0.01-0.08 hsjn=329) IMMATURE GRANULOCYTES-RELATIVE PERCENT (BEAKER) 0 % 0-1 (test bdsx=1744) SPUTUM CULTURE + GRAM [id number] 02:52:00 Test Item Value Reference Range Comments CULTURE (BEAKER) (test Oropharyngeal contamination, zwgf=3082) specimen rejected. Recollect requested. GRAM STAIN RESULT (BEAKER) <1+ WBCs (test vwpd=8485) GRAM STAIN RESULT (BEAKER) 10-15 epithelial cells (test vite=46983) GRAM STAIN RESULT (BEAKER) 2+ gram positive cocci in pairs (test cnrl=84300) GRAM STAIN RESULT (BEAKER) 2+ budding yeast with (test arji=765729) pseudohyphae GRAM STAIN RESULT (BEAKER) 2+ gram variable coccobacilli (test mdwm=189040) [id number] 00:53:00 Test Item Value Reference Range Comments POTASSIUM (BEAKER) (test wygn=900) 3.5 meq/L 3.5-5.1 [id number] 00:53:00 Test Item Value Reference Range Comments MAGNESIUM (BEAKER) (test okvb=677) 2.4 mg/dL 1.6-2.6 POCT-GLUCOSE [id number] 22:46:00 Test Item Value Reference Range Comments POC-GLUCOSE METER (BEAKER) 131 mg/dL 70-110 TESTED AT [address] (test hkww=5127) [facility] [address] POCT-GLUCOSE [id number] 17:29:00 Test Item Value Reference Range Comments POC-GLUCOSE METER (BEAKER) 114 mg/dL 70-110 TESTED AT [address] (test lbdv=8038) [facility] [address] [id number] 17:15:00 Test Item Value Reference Range Comments POTASSIUM (BEAKER) (test itef=976) 3.4 meq/L 3.5-5.1 [id number] 17:15:00 Test Item Value Reference Range Comments MAGNESIUM (BEAKER) (test uygi=293) 1.7 mg/dL 1.6-2.6 POCT-GLUCOSE [id number] 11:29:00 Test Item Value Reference Range Comments POC-GLUCOSE METER (BEAKER) 189 mg/dL 70-110 TESTED AT [address] (test wksv=2554) [place] [address] [id number] 09:36:00 Test Item Value Reference Range Comments POTASSIUM (BEAKER) (test kgqi=176) 4.3 meq/L 3.5-5.1 [id number] 09:36:00 Test Item Value Reference Range Comments MAGNESIUM (BEAKER) (test nkkd=900) 2.4 mg/dL 1.6-2.6 POCT-GLUCOSE [id number] 08:13:00 Test Item Value Reference Range Comments POC-GLUCOSE METER (BEAKER) 120 mg/dL 70-110 TESTED AT [address] (test wbac=4947) [place] [address] RAD, CHEST, 1 VIEW, NON [id number] 08:08:00Reason for exam:->CT in placeShould this be performed at the bedside?->YesFINAL REPORT CHEST ONE VIEW HISTORY: Chest tube COMPARISON: 03/19/2017 FINDINGS: Single portable AP examination of the chest was performed. No chest tube is visualized. There are diffuse pulmonary opacities throughout the right lung and less extensive airspace opacities in the left lung, slightly decreased since the prior study. Cardiac shadow partially obscured. No pneumothorax. No large pleural effusions. Right jugular catheter tip is in the SVC region. Signed: Clive ArcherMDReport Verified Date/Time: 03/20/2017 08:08:32 Reading Location: [facility] B1 C013X Ortho Consult Reading Room BLOOD GAS, [id number] 05:39:00 Test Item Value Reference Range Comments PH ARTERIAL (BEAKER) (test jxfl=166) 7.44 7.35-7.45 PCO2 ARTERIAL (BEAKER) (test nfqv=334) 50 mmHg 35-45 PO2 ARTERIAL (BEAKER) (test teog=827) 187 mmHg 80-90 O2 SATURATION ARTERIAL (BEAKER) (test bxph=201) 99.3 % 96.0-97.0 HCO3 ARTERIAL (BEAKER) (test isbp=178) 32 mmol/L 21-29 BASE EXCESS ARTERIAL (BEAKER) (test zkrm=639) 7.5 mmol/L -2.0-3.0 PATIENT TEMPERATURE (BEAKER) (test qpqn=0144) 37.5 C FIO2 (BEAKER) (test zskg=9876) 60.0 % BASIC METABOLIC [id number] 05:03:00 Test Item Value Reference Range Comments SODIUM (BEAKER) (test 135 meq/L 136-145 emct=571) POTASSIUM (BEAKER) (test 3.8 meq/L 3.5-5.1 agrp=173) CHLORIDE (BEAKER) (test 99 meq/L 98-107 lbmz=773) CO2 (BEAKER) (test 30 meq/L 22-29 gkdx=651) BLOOD UREA NITROGEN 15 mg/dL 7-21 (BEAKER) (test hhty=952) CREATININE (BEAKER) (test 0.73 mg/dL 0.57-1.25 mcpu=689) GLUCOSE RANDOM (BEAKER) 120 mg/dL 70-105 (test gzpw=207) CALCIUM (BEAKER) (test 8.1 mg/dL 8.4-10.2 bkrc=549) EGFR (BEAKER) (test 80 mL/min/1.73 sq m ESTIMATED GFR IS NOT vmqa=3292) ACCURATE CREATININE CLEARANCE IN PREDICTING GLOMERULAR FILTRATION RATE. ESTIMATED GFR IS NOT APPLICABLE FOR DIALYSIS PATIENTS. CBC W/PLT COUNT & AUTO [id number] 04:58:00 Test Item Value Reference Range Comments WHITE BLOOD CELL COUNT (BEAKER) (test zivn=402) 13.1 K/ L 3.5-10.5 RED BLOOD CELL COUNT (BEAKER) (test gqnq=141) 2.62 M/ L 3.93-5.22 HEMOGLOBIN (BEAKER) (test zrki=808) 8.0 GM/DL 11.2-15.7 HEMATOCRIT (BEAKER) (test xunf=457) 24.6 % 34.1-44.9 MEAN CORPUSCULAR VOLUME (BEAKER) (test llkq=634) 93.9 fL 79.4-94.8 MEAN CORPUSCULAR HEMOGLOBIN (BEAKER) (test 30.5 pg 25.6-32.2 idrn=856) MEAN CORPUSCULAR HEMOGLOBIN CONC (BEAKER) (test 32.5 GM/DL 32.2-35.5 xhqh=622) RED CELL DISTRIBUTION WIDTH (BEAKER) (test 12.6 % 11.7-14.4 xnlu=985) PLATELET COUNT (BEAKER) (test mtzy=402) 205 K/CU MM 150-450 MEAN PLATELET VOLUME (BEAKER) (test kcyv=900) 10.9 fL 9.4-12.3 NUCLEATED RED BLOOD CELLS (BEAKER) (test 0 /100 WBC 0-0 nscu=357) NEUTROPHILS RELATIVE PERCENT (BEAKER) (test 80 % vvqn=087) LYMPHOCYTES RELATIVE PERCENT (BEAKER) (test 9 % yubc=432) MONOCYTES RELATIVE PERCENT (BEAKER) (test 6 % oqha=683) EOSINOPHILS RELATIVE PERCENT (BEAKER) (test 3 % ntua=806) BASOPHILS RELATIVE PERCENT (BEAKER) (test 0 % hpqk=109) NEUTROPHILS ABSOLUTE COUNT (BEAKER) (test 10.51 K/ L 1.56-6.13 gltn=671) LYMPHOCYTES ABSOLUTE COUNT (BEAKER) (test 1.22 K/ L 1.18-3.74 ycuf=276) MONOCYTES ABSOLUTE COUNT (BEAKER) (test 0.82 K/ L 0.24-0.36 xxxd=026) EOSINOPHILS ABSOLUTE COUNT (BEAKER) (test 0.43 K/ L 0.04-0.36 mztb=779) BASOPHILS ABSOLUTE COUNT (BEAKER) (test 0.03 K/ L 0.01-0.08 yhis=918) IMMATURE GRANULOCYTES-RELATIVE PERCENT (BEAKER) 1 % 0-1 (test bdfm=5113) [id number] 01:55:00 Test Item Value Reference Range Comments POTASSIUM (BEAKER) (test spws=020) 4.0 meq/L 3.5-5.1 [id number] 01:55:00 Test Item Value Reference Range Comments MAGNESIUM (BEAKER) (test oujw=631) 2.0 mg/dL 1.6-2.6 POCT-GLUCOSE [id number] 22:15:00 Test Item Value Reference Range Comments POC-GLUCOSE METER (BEAKER) 124 mg/dL 70-[address] [facility] [address] [facility] (test jsxb=8989) [facility] [address] BASIC METABOLIC [id number] 21:37:00 Test Item Value Reference Range Comments SODIUM (BEAKER) (test 135 meq/L 136-145 rnme=836) POTASSIUM (BEAKER) (test 3.9 meq/L 3.5-5.1 xvpu=888) CHLORIDE (BEAKER) (test 100 meq/L 98-107 gfxq=867) CO2 (BEAKER) (test 25 meq/L 22-29 itdp=485) BLOOD UREA NITROGEN 15 mg/dL 7-21 (BEAKER) (test mkun=707) CREATININE (BEAKER) (test 0.74 mg/dL 0.57-1.25 ynwq=949) GLUCOSE RANDOM (BEAKER) 112 mg/dL 70-105 (test ujwn=604) CALCIUM (BEAKER) (test 8.5 mg/dL 8.4-10.2 waov=609) EGFR (BEAKER) (test 79 mL/min/1.73 sq m ESTIMATED GFR IS NOT ueuu=3158) ACCURATE CREATININE CLEARANCE IN PREDICTING GLOMERULAR FILTRATION RATE. ESTIMATED GFR IS NOT APPLICABLE FOR DIALYSIS PATIENTS. CBC W/PLT COUNT & AUTO [id number] 20:53:00 Test Item Value Reference Range Comments WHITE BLOOD CELL COUNT (BEAKER) (test khoq=925) 13.0 K/ L 3.5-10.5 RED BLOOD CELL COUNT (BEAKER) (test zulq=805) 2.53 M/ L 3.93-5.22 HEMOGLOBIN (BEAKER) (test vpxw=919) 7.7 GM/DL 11.2-15.7 HEMATOCRIT (BEAKER) (test trvf=468) 24.1 % 34.1-44.9 MEAN CORPUSCULAR VOLUME (BEAKER) (test qdkt=605) 95.3 fL 79.4-94.8 MEAN CORPUSCULAR HEMOGLOBIN (BEAKER) (test 30.4 pg 25.6-32.2 jimw=230) MEAN CORPUSCULAR HEMOGLOBIN CONC (BEAKER) (test 32.0 GM/DL 32.2-35.5 fkvl=534) RED CELL DISTRIBUTION WIDTH (BEAKER) (test 12.7 % 11.7-14.4 hmsp=192) PLATELET COUNT (BEAKER) (test ntmm=244) 181 K/CU MM 150-450 MEAN PLATELET VOLUME (BEAKER) (test xdih=090) 10.9 fL 9.4-12.3 NUCLEATED RED BLOOD CELLS (BEAKER) (test 0 /100 WBC 0-0 mlod=628) NEUTROPHILS RELATIVE PERCENT (BEAKER) (test 81 % wqbv=952) LYMPHOCYTES RELATIVE PERCENT (BEAKER) (test 10 % lrzi=467) MONOCYTES RELATIVE PERCENT (BEAKER) (test 6 % bawh=737) EOSINOPHILS RELATIVE PERCENT (BEAKER) (test 2 % rwcg=997) BASOPHILS RELATIVE PERCENT (BEAKER) (test 0 % usdf=492) NEUTROPHILS ABSOLUTE COUNT (BEAKER) (test 10.53 K/ L 1.56-6.13 tvek=499) LYMPHOCYTES ABSOLUTE COUNT (BEAKER) (test 1.33 K/ L 1.18-3.74 qecd=875) MONOCYTES ABSOLUTE COUNT (BEAKER) (test 0.77 K/ L 0.24-0.36 lnwm=283) EOSINOPHILS ABSOLUTE COUNT (BEAKER) (test 0.31 K/ L 0.04-0.36 qxmk=972) BASOPHILS ABSOLUTE COUNT (BEAKER) (test 0.01 K/ L 0.01-0.08 ynlf=892) IMMATURE GRANULOCYTES-RELATIVE PERCENT (BEAKER) 1 % 0-1 (test bxsd=1307) RAD, CHEST, 1 VIEW, NON [id number] 20:47:00Reason for exam:->dyspne fup congestion.Should this be performed at the bedside?->YesFINAL REPORT TECHNIQUE: Single view of the chest. COMPARISON: 03/19/2017 FINDINGS: Bilateral patchy interstitial and airspace opacities are stable. There may be a small left pleural effusion. No gross pneumothorax.No gross new lung parenchymal changes. Support lines and tubes are stable. IMPRESSION: 1. No significant interval change. Signed: Julio Cesar Cespedes MDReport Verified Date/Time : 03/19/2017 20:47:19 Reading Location: [address] Consult Reading Room BLOOD GAS, [id number] 20:09:00 Test Item Value Reference Range Comments PH ARTERIAL (BEAKER) (test ierq=164) 7.47 7.35-7.45 PCO2 ARTERIAL (BEAKER) (test ostp=257) 44 mmHg 35-45 PO2 ARTERIAL (BEAKER) (test rsak=723) 150 mmHg 80-90 O2 SATURATION ARTERIAL (BEAKER) (test jwjg=907) 99.1 % 96.0-97.0 HCO3 ARTERIAL (BEAKER) (test bsaf=893) 31 mmol/L 21-29 BASE EXCESS ARTERIAL (BEAKER) (test fktn=444) 6.4 mmol/L -2.0-3.0 PATIENT TEMPERATURE (BEAKER) (test xlux=7444) 36.5 C FIO2 (BEAKER) (test jnfg=6316) 75.0 % POCT-GLUCOSE [id number] 18:12:00 Test Item Value Reference Range Comments POC-GLUCOSE METER (BEAKER) 104 mg/dL 70-110 TESTED AT [address] (test zouu=5315) [place] [address] [id number] 17:32:00 Test Item Value Reference Range Comments POTASSIUM (BEAKER) (test paic=157) 3.6 meq/L 3.5-5.1 [id number] 17:32:00 Test Item Value Reference Range Comments MAGNESIUM (BEAKER) (test junh=539) 2.0 mg/dL 1.6-2.6 POCT-GLUCOSE [id number] 11:52:00 Test Item Value Reference Range Comments POC-GLUCOSE METER (BEAKER) 157 mg/dL 70-110 TESTED AT [address] (test trwr=7453) [place] [id number] BLOOD GAS, [id number] 09:35:00 Test Item Value Reference Range Comments PH ARTERIAL (BEAKER) (test gatz=457) 7.40 7.35-7.45 PCO2 ARTERIAL (BEAKER) (test xrfh=343) 46 mmHg 35-45 PO2 ARTERIAL (BEAKER) (test emrx=346) 112 mmHg 80-90 O2 SATURATION ARTERIAL (BEAKER) (test knti=764) 98.1 % 96.0-97.0 HCO3 ARTERIAL (BEAKER) (test cgoe=582) 28 mmol/L 21-29 BASE EXCESS ARTERIAL (BEAKER) (test kvma=191) 2.6 mmol/L -2.0-3.0 PATIENT TEMPERATURE (BEAKER) (test ptgn=9901) 36.6 C FIO2 (BEAKER) (test wseq=5107) 100.0 % RAD, CHEST, 1 VIEW, NON [id number] 08:11:00Reason for exam:->CHEST TUBEShould this be performed at the bedside?->YesFINAL REPORT Chest one view. Clinical history: CHEST TUBE Comparison: 03/18/2017 Discussion: A frontal chest is provided. Cardiomediastinal contours are unchanged. Right IJ line is in stable position. Bilateral interstitial and airspace opacities have progressed. No pneumothorax or large effusion. Signed: Mariana Mcgowan Verified Date/Time: 03/19/2017 08:11:15 Reading Location: [facility] Radiology Reading Room POCT-GLUCOSE [id number] 08:10:00 Test Item Value Reference Range Comments POC-GLUCOSE METER (BEAKER) 99 mg/dL 70-[address] [facility] [address] [facility] (test jrfb=1827) [facility] [address] CALCIUM, [id number] 07:00:00 Test Item Value Reference Range Comments CALCIUM IONIZED (BEAKER) (test ftyp=227) 1.12 mmol/L 1.12-1.27 PH, BLOOD (BEAKER) (test nktx=8405) 7.39 CBC W/PLT COUNT & AUTO [id number] 06:23:00 Test Item Value Reference Range Comments WHITE BLOOD CELL COUNT (BEAKER) (test crfu=449) 13.7 K/ L 3.5-10.5 RED BLOOD CELL COUNT (BEAKER) (test ohjw=186) 2.73 M/ L 3.93-5.22 HEMOGLOBIN (BEAKER) (test jtwr=679) 8.3 GM/DL 11.2-15.7 HEMATOCRIT (BEAKER) (test nekz=687) 25.8 % 34.1-44.9 MEAN CORPUSCULAR VOLUME (BEAKER) (test tqlf=481) 94.5 fL 79.4-94.8 MEAN CORPUSCULAR HEMOGLOBIN (BEAKER) (test 30.4 pg 25.6-32.2 grrk=384) MEAN CORPUSCULAR HEMOGLOBIN CONC (BEAKER) (test 32.2 GM/DL 32.2-35.5 oipc=050) RED CELL DISTRIBUTION WIDTH (BEAKER) (test 13.1 % 11.7-14.4 hkox=311) PLATELET COUNT (BEAKER) (test vane=803) 162 K/CU MM 150-450 MEAN PLATELET VOLUME (BEAKER) (test dvle=760) 11.4 fL 9.4-12.3 NUCLEATED RED BLOOD CELLS (BEAKER) (test 0 /100 WBC 0-0 yfrt=096) NEUTROPHILS RELATIVE PERCENT (BEAKER) (test 83 % beqf=992) LYMPHOCYTES RELATIVE PERCENT (BEAKER) (test 8 % soqt=750) MONOCYTES RELATIVE PERCENT (BEAKER) (test 6 % rcvi=179) EOSINOPHILS RELATIVE PERCENT (BEAKER) (test 2 % mkds=416) BASOPHILS RELATIVE PERCENT (BEAKER) (test 0 % gjao=529) NEUTROPHILS ABSOLUTE COUNT (BEAKER) (test 11.38 K/ L 1.56-6.13 xixf=831) LYMPHOCYTES ABSOLUTE COUNT (BEAKER) (test 1.07 K/ L 1.18-3.74 svib=209) MONOCYTES ABSOLUTE COUNT (BEAKER) (test 0.78 K/ L 0.24-0.36 lrhj=341) EOSINOPHILS ABSOLUTE COUNT (BEAKER) (test 0.30 K/ L 0.04-0.36 mivp=493) BASOPHILS ABSOLUTE COUNT (BEAKER) (test 0.03 K/ L 0.01-0.08 lrrz=793) IMMATURE GRANULOCYTES-RELATIVE PERCENT (BEAKER) 1 % 0-1 (test eqrv=0971) [id number] 06:16:00 Test Item Value Reference Range Comments PHOSPHORUS (BEAKER) (test cqei=881) 2.2 mg/dL 2.3-4.7 [id number] 06:16:00 Test Item Value Reference Range Comments MAGNESIUM (BEAKER) (test tkbw=868) 2.0 mg/dL 1.6-2.6 BASIC METABOLIC [id number] 06:16:00 Test Item Value Reference Range Comments SODIUM (BEAKER) (test 135 meq/L 136-145 pwcw=555) POTASSIUM (BEAKER) (test 4.1 meq/L 3.5-5.1 sqml=654) CHLORIDE (BEAKER) (test 101 meq/L 98-107 pcce=373) CO2 (BEAKER) (test 26 meq/L 22-29 wema=081) BLOOD UREA NITROGEN 17 mg/dL 7-21 (BEAKER) (test hbdk=058) CREATININE (BEAKER) (test 0.71 mg/dL 0.57-1.25 daww=884) GLUCOSE RANDOM (BEAKER) 97 mg/dL 70-105 (test leht=322) CALCIUM (BEAKER) (test 8.5 mg/dL 8.4-10.2 ymwt=446) EGFR (BEAKER) (test 82 mL/min/1.73 sq m ESTIMATED GFR IS NOT rhol=1138) ACCURATE CREATININE CLEARANCE IN PREDICTING GLOMERULAR FILTRATION RATE. ESTIMATED GFR IS NOT APPLICABLE FOR DIALYSIS PATIENTS. BLOOD GAS, [id number] 22:30:00 Test Item Value Reference Range Comments PH ARTERIAL (BEAKER) (test wwql=122) 7.38 7.35-7.45 PCO2 ARTERIAL (BEAKER) (test ipsd=215) 50 mmHg 35-45 PO2 ARTERIAL (BEAKER) (test cwgu=892) 146 mmHg 80-90 O2 SATURATION ARTERIAL (BEAKER) (test tufq=126) 98.8 % 96.0-97.0 HCO3 ARTERIAL (BEAKER) (test oydi=305) 29 mmol/L 21-29 BASE EXCESS ARTERIAL (BEAKER) (test imay=516) 3.3 mmol/L -2.0-3.0 PATIENT TEMPERATURE (BEAKER) (test skij=6865) 37.0 C FIO2 (BEAKER) (test nmyi=7415) 80.0 % POCT-GLUCOSE [id number] 22:14:00 Test Item Value Reference Range Comments POC-GLUCOSE METER (BEAKER) 113 mg/dL 70-[address] [facility] [address] [facility] (test dzab=5065) [facility] [address] [id number] 21:31:00 Test Item Value Reference Range Comments POTASSIUM (BEAKER) (test tepa=599) 4.1 meq/L 3.5-5.1 [id number] 21:31:00 Test Item Value Reference Range Comments MAGNESIUM (BEAKER) (test kvpl=530) 2.1 mg/dL 1.6-2.6 CALCIUM, [id number] 20:55:00 Test Item Value Reference Range Comments CALCIUM IONIZED (BEAKER) (test edsk=350) 1.11 mmol/L 1.12-1.27 PH, BLOOD (BEAKER) (test fooz=3100) 7.38 BLOOD GAS, [id number] 18:29:00 Test Item Value Reference Range Comments PH ARTERIAL (BEAKER) (test hyif=830) 7.32 7.35-7.45 PCO2 ARTERIAL (BEAKER) (test xouk=621) 56 mmHg 35-45 PO2 ARTERIAL (BEAKER) (test vwmn=902) 90 mmHg 80-90 O2 SATURATION ARTERIAL (BEAKER) (test xeze=139) 96.2 % 96.0-97.0 HCO3 ARTERIAL (BEAKER) (test zovo=777) 28 mmol/L 21-29 BASE EXCESS ARTERIAL (BEAKER) (test pguf=418) 1.6 mmol/L -2.0-3.0 PATIENT TEMPERATURE (BEAKER) (test znse=4209) 36.7 C FIO2 (BEAKER) (test msyu=7725) 80.0 % POCT-GLUCOSE [id number] 17:42:00 Test Item Value Reference Range Comments POC-GLUCOSE METER (BEAKER) 109 mg/dL 70-110 TESTED AT [place] [id number] [facility] (test ftpx=9271) [facility] [address] RAD, CHEST, 1 VIEW, NON [id number] 15:59:00Reason for exam:->SOB acute, s /p ACBx5 INAL REPORT Chest one view. Clinical history: SOB acute, s/p ACBx5 03/16 Comparison: 03/18/2017 Discussion: A frontal chest is provided. Cardiomediastinal contours are unchanged. Right IJ line is in stable position. A feeding tube has been removed. Bilateral interstitial and airspace opacities are unchanged. No pneumothorax, or large effusion. Signed: Mariana Mcgowan Verified Date/Time: 03/18/2017 15:59:51 Reading Location: [address] Consult Reading Room BASIC METABOLIC [id number] 12:32:00 Test Item Value Reference Range Comments SODIUM (BEAKER) (test 136 meq/L 136-145 fafl=837) POTASSIUM (BEAKER) (test 4.0 meq/L 3.5-5.1 yyxv=673) CHLORIDE (BEAKER) (test 104 meq/L 98-107 oksd=754) CO2 (BEAKER) (test 26 meq/L 22-29 uyyt=511) BLOOD UREA NITROGEN 15 mg/dL 7-21 (BEAKER) (test ownt=148) CREATININE (BEAKER) (test 0.78 mg/dL 0.57-1.25 dpru=502) GLUCOSE RANDOM (BEAKER) 103 mg/dL 70-105 (test glfb=005) CALCIUM (BEAKER) (test 7.9 mg/dL 8.4-10.2 unbd=883) EGFR (BEAKER) (test 74 mL/min/1.73 sq m ESTIMATED GFR IS NOT osxt=1494) ACCURATE CREATININE CLEARANCE IN PREDICTING GLOMERULAR FILTRATION RATE. ESTIMATED GFR IS NOT APPLICABLE FOR DIALYSIS PATIENTS. [id number] 12:22:00 Test Item Value Reference Range Comments MAGNESIUM (BEAKER) (test what=222) 1.5 mg/dL 1.6-2.6 RAD, CHEST, 1 VIEW, NON [id number] 11:29:00Reason for exam:->re eval pulmonary edemaFINAL REPORT Chest one view. Clinical history: re eval pulmonary edema Comparison: March 18, 2017 Discussion: A frontal chest is provided. Cardiomediastinal contours are unchanged. Left chest tube and a mediastinal drain have been removed. There is interval placement of a feeding tube, the tip projects over the GE junction. Bilateral interstitial and airspace opacities do not appear significantly changed. No pneumothorax. No large effusion. Signed: Mariana Mcgowan MDReport Verified Date/Time: 03/18/2017 11:29:23 Reading Location: [facility] Radiology Reading Room BLOOD GAS, [id number] 11:17:00 Test Item Value Reference Range Comments PH ARTERIAL (BEAKER) (test eoxs=163) 7.38 7.35-7.45 PCO2 ARTERIAL (BEAKER) (test dtrq=503) 51 mmHg 35-45 PO2 ARTERIAL (BEAKER) (test vepg=654) 106 mmHg 80-90 O2 SATURATION ARTERIAL (BEAKER) (test rlmf=797) 97.7 % 96.0-97.0 HCO3 ARTERIAL (BEAKER) (test ivwg=619) 29 mmol/L 21-29 BASE EXCESS ARTERIAL (BEAKER) (test syqs=519) 3.4 mmol/L -2.0-3.0 PATIENT TEMPERATURE (BEAKER) (test xrph=5793) 37.0 C FIO2 (BEAKER) (test rmbz=1617) 100.0 % RAD, CHEST, 1 VIEW, NON [id number] 09:53:00Reason for exam:->CHEST TUBEShould this be performed at the bedside?->YesFINAL REPORT HISTORY : CHEST TUBE. Comparison: 03/17/2017 Comment: Single portable view of the chest was obtained. The cardiac silhouette size is enlarged. Support lines and tubes are unchanged. No pneumothorax is seen. There is diffuse parenchymal airspace disease. No definite pleural effusions are seen. The patient is status post sternotomy. Signed: Francia Mathews Verified Date/Time: 03/18/2017 09:53:38 Reading Location: [facility] Diagnostic Imaging Reading Room - [place] [address] BLOOD GAS, [id number] 09:29:00 Test Item Value Reference Range Comments PH VENOUS (BEAKER) (test ohjd=782) 7.33 7.32-7.42 PCO2 VENOUS (BEAKER) (test zioz=992) 55 mmHg 41-51 PO2 VENOUS (BEAKER) (test tvfb=321) 36 mmHg 25-40 O2 SATURATION VENOUS (BEAKER) (test gxun=494) 59.6 % 40.0-70.0 HCO3 VENOUS (BEAKER) (test neds=796) 28 mmol/L 21-29 BASE EXCESS VENOUS (BEAKER) (test cmfu=039) 1.7 mmol/L -2.0-3.0 PATIENT TEMPERATURE (BEAKER) (test ubod=5637) 38.0 C FIO2 (BEAKER) (test adgb=4851) 36.0 % [id number] 03:59:00 Test Item Value Reference Range Comments PHOSPHORUS (BEAKER) (test ginb=048) 2.9 mg/dL 2.3-4.7 [id number] 03:59:00 Test Item Value Reference Range Comments MAGNESIUM (BEAKER) (test yyss=091) 1.9 mg/dL 1.6-2.6 BASIC METABOLIC [id number] 03:59:00 Test Item Value Reference Range Comments SODIUM (BEAKER) (test 135 meq/L 136-145 dzzj=283) POTASSIUM (BEAKER) (test 4.6 meq/L 3.5-5.1 sdhv=425) CHLORIDE (BEAKER) (test 106 meq/L 98-107 urfq=226) CO2 (BEAKER) (test 24 meq/L 22-29 dykc=617) BLOOD UREA NITROGEN 17 mg/dL 7-21 (BEAKER) (test cqxy=458) CREATININE (BEAKER) (test 0.83 mg/dL 0.57-1.25 xhlt=044) GLUCOSE RANDOM (BEAKER) 108 mg/dL 70-105 (test hgcm=713) CALCIUM (BEAKER) (test 8.2 mg/dL 8.4-10.2 caob=660) EGFR (BEAKER) (test 69 mL/min/1.73 sq m ESTIMATED GFR IS NOT kvgr=2661) ACCURATE CREATININE CLEARANCE IN PREDICTING GLOMERULAR FILTRATION RATE. ESTIMATED GFR IS NOT APPLICABLE FOR DIALYSIS PATIENTS. CBC W/PLT COUNT & AUTO [id number] 03:47:00 Test Item Value Reference Range Comments WHITE BLOOD CELL COUNT (BEAKER) (test pqol=150) 17.4 K/ L 3.5-10.5 RED BLOOD CELL COUNT (BEAKER) (test vewg=257) 2.77 M/ L 3.93-5.22 HEMOGLOBIN (BEAKER) (test mcfh=939) 8.6 GM/DL 11.2-15.7 HEMATOCRIT (BEAKER) (test gdll=457) 26.7 % 34.1-44.9 MEAN CORPUSCULAR VOLUME (BEAKER) (test gdpv=156) 96.4 fL 79.4-94.8 MEAN CORPUSCULAR HEMOGLOBIN (BEAKER) (test 31.0 pg 25.6-32.2 rxmy=784) MEAN CORPUSCULAR HEMOGLOBIN CONC (BEAKER) (test 32.2 GM/DL 32.2-35.5 uxee=660) RED CELL DISTRIBUTION WIDTH (BEAKER) (test 13.6 % 11.7-14.4 yhsc=167) PLATELET COUNT (BEAKER) (test cdkl=259) 144 K/CU MM 150-450 MEAN PLATELET VOLUME (BEAKER) (test plep=453) 11.0 fL 9.4-12.3 NUCLEATED RED BLOOD CELLS (BEAKER) (test 0 /100 WBC 0-0 rrbp=335) NEUTROPHILS RELATIVE PERCENT (BEAKER) (test 85 % ydhe=361) LYMPHOCYTES RELATIVE PERCENT (BEAKER) (test 6 % uzja=820) MONOCYTES RELATIVE PERCENT (BEAKER) (test 6 % jllx=555) EOSINOPHILS RELATIVE PERCENT (BEAKER) (test 1 % trla=170) BASOPHILS RELATIVE PERCENT (BEAKER) (test 0 % lxpg=784) NEUTROPHILS ABSOLUTE COUNT (BEAKER) (test 14.83 K/ L 1.56-6.13 lxih=324) LYMPHOCYTES ABSOLUTE COUNT (BEAKER) (test 1.09 K/ L 1.18-3.74 hjvb=376) MONOCYTES ABSOLUTE COUNT (BEAKER) (test 1.11 K/ L 0.24-0.36 ywug=994) EOSINOPHILS ABSOLUTE COUNT (BEAKER) (test 0.22 K/ L 0.04-0.36 xgyo=750) BASOPHILS ABSOLUTE COUNT (BEAKER) (test 0.05 K/ L 0.01-0.08 rsin=670) IMMATURE GRANULOCYTES-RELATIVE PERCENT (BEAKER) 1 % 0-1 (test dyqv=1865) CALCIUM, [id number] 03:24:00 Test Item Value Reference Range Comments CALCIUM IONIZED (BEAKER) (test wzgk=229) 1.18 mmol/L 1.12-1.27 PH, BLOOD (BEAKER) (test jdlf=6951) 7.29 POCT-GLUCOSE [id number] 20:56:00 Test Item Value Reference Range Comments POC-GLUCOSE METER (BEAKER) 109 mg/dL 70-110 TESTED AT [address] (test tpyi=5918) [facility] [address] HEMOGLOBIN AND [id number] 19:28:00 Test Item Value Reference Range Comments HEMOGLOBIN (BEAKER) (test zdkg=102) 8.2 GM/DL 11.2-15.7 HEMATOCRIT (BEAKER) (test whof=201) 25.8 % 34.1-44.9 POCT-GLUCOSE [id number] 17:26:00 Test Item Value Reference Range Comments POC-GLUCOSE METER (BEAKER) 92 mg/dL 70-110 TESTED AT [address] (test qkak=8550) [facility] [address] PROTHROMBIN [id number] 14:48:00 Test Item Value Reference Range Comments PROTIME (BEAKER) (test hsou=103) 14.9 seconds 11.7-14.7 INR (BEAKER) (test orrb=511) 1.2 <=5.9 RECOMMENDED COUMADIN/WARFARIN INR THERAPY RANGESSTANDARD DOSE: 2.0 - 3.0 Includes: PROPHYLAXIS forvenous thrombosis, systemic embolization; TREATMENT for venous thrombosis and/or pulmonary embolus.HIGH RISK: Target INR is 2.5-3.5 for patients with mechanical heart valves.[id number] 14:48:00 Test Item Value Reference Range Comments FIBRINOGEN LEVEL (BEAKER) (test dxra=784) 425 mg/dl 225-434 [id number] 14:48:00 Test Item Value Reference Range Comments PARTIAL THROMBOPLASTIN TIME (BEAKER) (test 29.9 seconds 22.5-36.0 gepm=266) PLATELET [id number] 14:39:00 Test Item Value Reference Range Comments PLATELET COUNT (BEAKER) (test jase=200) 165 K/CU MM 150-450 RAD, CHEST, 1 VIEW, NON [id number] 14:32:00Reason for exam:->Possible Pulm Hemorrhage, evalaution and comparisonShould this be performed at the bedside?->YesFINAL REPORT AP chest HISTORY: Pulmonary hemorrhage COMPARISON: 03/17/2017, 03/16/2017 IMPRESSION:Supportive lines unchanged. Lungs hypoinflated. No large effusions. Scattered airspace opacities stable to increased. No pneumothorax. Signed: Mahin Marlow MDReport Verified Date/Time: 03/17/2017 14:32:53 Reading Location: [facility] Reading Room POCT-GLUCOSE [id number] 14:21:00 Test Item Value Reference Range Comments POC-GLUCOSE METER (BEAKER) 132 mg/dL 70-110 TESTED AT [address] (test wxsw=9537) [place] [address] BLOOD GAS, [id number] 14:01:00 Test Item Value Reference Range Comments PH ARTERIAL (BEAKER) (test lplk=193) 7.36 7.35-7.45 PCO2 ARTERIAL (BEAKER) (test qkse=467) 45 mmHg 35-45 PO2 ARTERIAL (BEAKER) (test yogk=300) 68 mmHg 80-90 O2 SATURATION ARTERIAL (BEAKER) (test bwrp=161) 92.4 % 96.0-97.0 HCO3 ARTERIAL (BEAKER) (test hmdr=829) 25 mmol/L 21-29 BASE EXCESS ARTERIAL (BEAKER) (test kjjv=129) -0.3 mmol/L -2.0-3.0 PATIENT TEMPERATURE (BEAKER) (test nuif=9899) 37.4 C FIO2 (BEAKER) (test dkvs=6060) 28.0 % POCT-GLUCOSE [id number] 13:23:00 Test Item Value Reference Range Comments POC-GLUCOSE METER (BEAKER) 139 mg/dL 70-110 TESTED AT [address] (test llyz=9487) [place] [address] HEMOGLOBIN AND [id number] 12:33:00 Test Item Value Reference Range Comments HEMOGLOBIN (BEAKER) (test egdi=654) 7.3 GM/DL 11.2-15.7 HEMATOCRIT (BEAKER) (test pmue=796) 23.0 % 34.1-44.9 POCT-GLUCOSE [id number] 11:27:00 Test Item Value Reference Range Comments POC-GLUCOSE METER (BEAKER) 137 mg/dL 70-110 TESTED AT [address] (test yqqf=6090) [place] [id number] POCT-GLUCOSE [id number] 09:00:00 Test Item Value Reference Range Comments POC-GLUCOSE METER (BEAKER) 112 mg/dL 70-110 TESTED AT [address] (test ckwi=6512) [facility] [address] POCT-GLUCOSE [id number] 08:59:00 Test Item Value Reference Range Comments POC-GLUCOSE METER (BEAKER) 137 mg/dL 70-110 TESTED AT [address] (test trtl=2314) [facility] [address] POCT-GLUCOSE [id number] 08:59:00 Test Item Value Reference Range Comments POC-GLUCOSE METER (BEAKER) 166 mg/dL 70-110 TESTED AT [address] (test mtkz=6042) [facility] [address] POCT-GLUCOSE [id number] 08:59:00 Test Item Value Reference Range Comments POC-GLUCOSE METER (BEAKER) 155 mg/dL 70-110 TESTED AT [address] (test etlw=0780) [facility] [address] POCT-GLUCOSE [id number] 08:59:00 Test Item Value Reference Range Comments POC-GLUCOSE METER (BEAKER) 173 mg/dL 70-110 TESTED AT [address] (test tscz=8773) [facility] [address] POCT-GLUCOSE [id number] 08:59:00 Test Item Value Reference Range Comments POC-GLUCOSE METER (BEAKER) 194 mg/dL 70-110 TESTED AT [address] (test wxcp=2506) [facility] [address] POCT-GLUCOSE [id number] 08:59:00 Test Item Value Reference Range Comments POC-GLUCOSE METER (BEAKER) 212 mg/dL 70-110 TESTED AT [address] (test enlo=1259) [facility] [address] POCT-GLUCOSE [id number] 08:49:00 Test Item Value Reference Range Comments POC-GLUCOSE METER (BEAKER) 144 mg/dL 70-110 TESTED AT [address] (test xxom=2597) [facility] [address] RAD, CHEST, 1 VIEW, NON [id number] 07:35:00Reason for exam:->CHEST TUBEShould this be performed at the bedside?->YesFINAL REPORT Chest one view. Clinical history: CHEST TUBE Comparison: 03/16/2017 Discussion: A frontal chest is provided. ET and feeding tube have been removed. Other lines and tubes are in stable position. No contours. There is increased pleural-parenchymal opacity in the left mid to lower lung. Unchanged streaky opacity at the right lung base probably reflects atelectasis. Nopneumothorax. Signed: Mariana Mcgowan Verified Date/Time: 03/17/2017 07:35:05 Reading Location: [facility] Radiology Reading Room BLOOD GAS, [id number] 04:23:00 Test Item Value Reference Range Comments PH ARTERIAL (BEAKER) (test quii=690) 7.39 7.35-7.45 PCO2 ARTERIAL (BEAKER) (test nfwk=489) 40 mmHg 35-45 PO2 ARTERIAL (BEAKER) (test vykx=231) 61 mmHg 80-90 O2 SATURATION ARTERIAL (BEAKER) (test fkzr=326) 91.6 % 96.0-97.0 HCO3 ARTERIAL (BEAKER) (test eyjr=090) 23 mmol/L 21-29 BASE EXCESS ARTERIAL (BEAKER) (test toni=488) -1.7 mmol/L -2.0-3.0 PATIENT TEMPERATURE (BEAKER) (test afem=6924) 36.7 C FIO2 (BEAKER) (test gvvy=4435) 36.0 % OXYGEN SATURATION, [id number] 04:22:00 Test Item Value Reference Range Comments O2 SATURATION (MEASURED) (BEAKER) (test orzp=9257) 63.1 % LACTIC ACID, ARTERIAL, WHOLE [id number] 04:14:00 Test Item Value Reference Range Comments LACTATE BLOOD ARTERIAL (2) (BEAKER) (test 4.1 mmol/L 0.5-2.2 xivj=3054) Effective 09/11/2015: Units/Reference Range ChangeNew: 0.5-2.2 mmol/L Previous: 5 -20 mg/[id number] 03:59:00 Test Item Value Reference Range Comments PHOSPHORUS (BEAKER) (test dasg=441) 1.3 mg/dL 2.3-4.7 CALCIUM, [id number] 03:45:00 Test Item Value Reference Range Comments CALCIUM IONIZED (BEAKER) (test enbz=359) 1.12 mmol/L 1.12-1.27 PH, BLOOD (BEAKER) (test ysqn=5248) 7.36 [id number] 03:35:00 Test Item Value Reference Range Comments MAGNESIUM (BEAKER) (test zwqi=569) 2.4 mg/dL 1.6-2.6 BASIC METABOLIC [id number] 03:35:00 Test Item Value Reference Range Comments SODIUM (BEAKER) (test 141 meq/L 136-145 tudi=702) POTASSIUM (BEAKER) (test 4.0 meq/L 3.5-5.1 oway=090) CHLORIDE (BEAKER) (test 111 meq/L 98-107 zdqv=521) CO2 (BEAKER) (test 21 meq/L 22-29 qkza=596) BLOOD UREA NITROGEN 18 mg/dL 7-21 (BEAKER) (test ukdv=516) CREATININE (BEAKER) (test 0.92 mg/dL 0.57-1.25 opzg=636) GLUCOSE RANDOM (BEAKER) 147 mg/dL 70-105 (test mydr=089) CALCIUM (BEAKER) (test 8.0 mg/dL 8.4-10.2 wypt=679) EGFR (BEAKER) (test 61 mL/min/1.73 sq m ESTIMATED GFR IS NOT jhnl=8235) ACCURATE CREATININE CLEARANCE IN PREDICTING GLOMERULAR FILTRATION RATE. ESTIMATED GFR IS NOT APPLICABLE FOR DIALYSIS PATIENTS. CBC W/PLT COUNT & AUTO [id number] 03:32:00 Test Item Value Reference Range Comments WHITE BLOOD CELL COUNT (BEAKER) (test ulem=227) 16.8 K/ L 3.5-10.5 RED BLOOD CELL COUNT (BEAKER) (test cmqt=089) 2.85 M/ L 3.93-5.22 HEMOGLOBIN (BEAKER) (test tfas=783) 8.8 GM/DL 11.2-15.7 HEMATOCRIT (BEAKER) (test grhh=667) 27.4 % 34.1-44.9 MEAN CORPUSCULAR VOLUME (BEAKER) (test mlci=846) 96.1 fL 79.4-94.8 MEAN CORPUSCULAR HEMOGLOBIN (BEAKER) (test 30.9 pg 25.6-32.2 oygy=207) MEAN CORPUSCULAR HEMOGLOBIN CONC (BEAKER) (test 32.1 GM/DL 32.2-35.5 xjfz=523) RED CELL DISTRIBUTION WIDTH (BEAKER) (test 12.3 % 11.7-14.4 hyad=118) PLATELET COUNT (BEAKER) (test iqus=902) 200 K/CU MM 150-450 MEAN PLATELET VOLUME (BEAKER) (test fylz=601) 10.6 fL 9.4-12.3 NUCLEATED RED BLOOD CELLS (BEAKER) (test 0 /100 WBC 0-0 quqw=767) NEUTROPHILS RELATIVE PERCENT (BEAKER) (test 91 % pkob=098) LYMPHOCYTES RELATIVE PERCENT (BEAKER) (test 3 % eozf=145) MONOCYTES RELATIVE PERCENT (BEAKER) (test 6 % xutn=679) EOSINOPHILS RELATIVE PERCENT (BEAKER) (test 0 % pvks=381) BASOPHILS RELATIVE PERCENT (BEAKER) (test 0 % ndse=468) NEUTROPHILS ABSOLUTE COUNT (BEAKER) (test 15.26 K/ L 1.56-6.13 eywe=978) LYMPHOCYTES ABSOLUTE COUNT (BEAKER) (test 0.50 K/ L 1.18-3.74 nmsr=806) MONOCYTES ABSOLUTE COUNT (BEAKER) (test 0.95 K/ L 0.24-0.36 xksh=132) EOSINOPHILS ABSOLUTE COUNT (BEAKER) (test 0.00 K/ L 0.04-0.36 fvew=976) BASOPHILS ABSOLUTE COUNT (BEAKER) (test 0.03 K/ L 0.01-0.08 qoot=610) IMMATURE GRANULOCYTES-RELATIVE PERCENT (BEAKER) 0 % 0-1 (test fqzb=5335) LACTIC ACID, ARTERIAL, WHOLE [id number] 00:58:00 Test Item Value Reference Range Comments LACTATE BLOOD ARTERIAL (2) (BEAKER) (test 7.4 mmol/L 0.5-2.2 cxlf=9614) Effective 09/11/2015: Units/Reference Range ChangeNew: 0.5-2.2 mmol/L Previous: 5 -20 mg/dLBLOOD GAS, [id number] 00:50:00 Test Item Value Reference Range Comments PH ARTERIAL (BEAKER) (test dyuj=803) 7.36 7.35-7.45 PCO2 ARTERIAL (BEAKER) (test onxm=275) 39 mmHg 35-45 PO2 ARTERIAL (BEAKER) (test kskq=391) 69 mmHg 80-90 O2 SATURATION ARTERIAL (BEAKER) (test mzqu=620) 93.5 % 96.0-97.0 HCO3 ARTERIAL (BEAKER) (test gmto=790) 22 mmol/L 21-29 BASE EXCESS ARTERIAL (BEAKER) (test uzca=088) -3.2 mmol/L -2.0-3.0 PATIENT TEMPERATURE (BEAKER) (test hwzn=3566) 36.9 C FIO2 (BEAKER) (test mpvk=9376) 28.0 % Post extubation ABGSODIUM NA-STAT [id number] 23:09:00 Test Item Value Reference Range Comments SODIUM (BEAKER) (test wmes=555) 139 meq/L 135-148 POTASSIUM-STAT [id number] 23:09:00 Test Item Value Reference Range Comments POTASSIUM (BEAKER) (test wgho=249) 4.0 meq/L 3.6-5.5 BLOOD GAS, [id number] 23:09:00 Test Item Value Reference Range Comments PH ARTERIAL (BEAKER) (test ggxg=398) 7.32 7.35-7.45 PCO2 ARTERIAL (BEAKER) (test rget=026) 39 mmHg 35-45 PO2 ARTERIAL (BEAKER) (test mmap=286) 95 mmHg 80-90 O2 SATURATION ARTERIAL (BEAKER) (test ijic=293) 96.7 % 96.0-97.0 HCO3 ARTERIAL (BEAKER) (test vlmv=682) 20 mmol/L 21-29 BASE EXCESS ARTERIAL (BEAKER) (test ulqd=630) -6.0 mmol/L -2.0-3.0 PATIENT TEMPERATURE (BEAKER) (test pjlm=1066) 37.2 C FIO2 (BEAKER) (test lzif=0893) 40.0 % GLUCOSE-STAT [id number] 23:09:00 Test Item Value Reference Range Comments GLUCOSE RANDOM (BEAKER) (test rdje=702) 198 mg/dL 70-110 HGB/HCT (H&H) - STAT [id number] 23:09:00 Test Item Value Reference Range Comments HEMOGLOBIN (BEAKER) (test ufiz=451) 9.8 g/dL 12.0-15.0 HEMATOCRIT (BEAKER) (test ebyh=182) 29.0 % 36.0-45.0 POCT-GLUCOSE [id number] 22:16:00 Test Item Value Reference Range Comments POC-GLUCOSE METER (BEAKER) 216 mg/dL 70-[address] [facility] [address] (test rooj=2498) [facility] [id number] POCT-GLUCOSE [id number] 22:04:00 Test Item Value Reference Range Comments POC-GLUCOSE METER (BEAKER) 256 mg/dL 70-110 TESTED AT [address] (test uzop=3789) [facility] [address] BLOOD GAS, [id number] 20:33:00 Test Item Value Reference Range Comments PH ARTERIAL (BEAKER) (test rodj=900) 7.40 7.35-7.45 PCO2 ARTERIAL (BEAKER) (test emgi=428) 33 mmHg 35-45 PO2 ARTERIAL (BEAKER) (test swsg=288) 181 mmHg 80-90 O2 SATURATION ARTERIAL (BEAKER) (test epsj=148) 99.3 % 96.0-97.0 HCO3 ARTERIAL (BEAKER) (test ffsb=105) 20 mmol/L 21-29 BASE EXCESS ARTERIAL (BEAKER) (test rvdv=081) -4.1 mmol/L -2.0-3.0 PATIENT TEMPERATURE (BEAKER) (test shdv=7458) 36.3 C FIO2 (BEAKER) (test lgqr=7316) 60.0 % CBC W/PLT COUNT & AUTO [id number] 20:11:00 Test Item Value Reference Range Comments WHITE BLOOD CELL COUNT (BEAKER) (test slje=900) 27.7 K/ L 3.5-10.5 RED BLOOD CELL COUNT (BEAKER) (test dfrk=573) 2.90 M/ L 3.93-5.22 HEMOGLOBIN (BEAKER) (test hxjd=141) 9.1 GM/DL 11.2-15.7 HEMATOCRIT (BEAKER) (test nzzg=424) 27.8 % 34.1-44.9 MEAN CORPUSCULAR VOLUME (BEAKER) (test ikrq=892) 95.9 fL 79.4-94.8 MEAN CORPUSCULAR HEMOGLOBIN (BEAKER) (test 31.4 pg 25.6-32.2 mdof=492) MEAN CORPUSCULAR HEMOGLOBIN CONC (BEAKER) (test 32.7 GM/DL 32.2-35.5 jnws=173) RED CELL DISTRIBUTION WIDTH (BEAKER) (test 12.1 % 11.7-14.4 swpr=364) PLATELET COUNT (BEAKER) (test zwtl=488) 184 K/CU MM 150-450 MEAN PLATELET VOLUME (BEAKER) (test jvop=725) 10.6 fL 9.4-12.3 NUCLEATED RED BLOOD CELLS (BEAKER) (test 0 /100 WBC 0-0 czdd=401) NEUTROPHILS RELATIVE PERCENT (BEAKER) (test 79 % rrvc=965) LYMPHOCYTES RELATIVE PERCENT (BEAKER) (test 14 % ahla=612) MONOCYTES RELATIVE PERCENT (BEAKER) (test 6 % kywc=350) EOSINOPHILS RELATIVE PERCENT (BEAKER) (test 1 % jolp=248) BASOPHILS RELATIVE PERCENT (BEAKER) (test 0 % rgfc=606) NEUTROPHILS ABSOLUTE COUNT (BEAKER) (test 21.70 K/ L 1.56-6.13 pdiy=045) LYMPHOCYTES ABSOLUTE COUNT (BEAKER) (test 3.81 K/ L 1.18-3.74 vdel=976) MONOCYTES ABSOLUTE COUNT (BEAKER) (test 1.59 K/ L 0.24-0.36 rtel=873) EOSINOPHILS ABSOLUTE COUNT (BEAKER) (test 0.26 K/ L 0.04-0.36 nsfc=954) BASOPHILS ABSOLUTE COUNT (BEAKER) (test 0.05 K/ L 0.01-0.08 jnnm=226) IMMATURE GRANULOCYTES-RELATIVE PERCENT (BEAKER) 1 % 0-1 (test afrj=2077) THROMBOELASTOGRAPH (TEG)2017-03-16 19:38:00 Test Item Value Reference Range Comments TEG ACTIVATED CLOTTING TIME (BEAKER) (test 5.0 minutes 4.0-7.0 rddz=8264) TEG FIBRINOGEN ACTIVITY (BEAKER) (test 74.8 degrees 61.0-73.0 jgpx=8010) TEG PLT. AGGREGATION (BEAKER) (test dqag=3107) 68.6 MM 55.0-65.0 TEG FIBRINOLYSIS (BEAKER) (test dimf=1335) 1.8 % 0.0-5.0 TGH ACTIVATED CLOTTING TIME (BEAKER) (test 5.3 minutes 4.0-7.0 aodp=9366) TGH FIBRINOGEN ACTIVITY (BEAKER) (test 75.1 degrees 61.0-73.0 pqvr=3344) TGH PLT. AGGREGATION (BEAKER) (test hini=9475) 66.3 MM 55.0-65.0 TGH FIBRINOLYSIS (BEAKER) (test pzqe=8444) 0.0 % 0.0-5.0 RAD, CHEST, 1 VIEW, NON [id number] 18:48:00Reason for exam:->post op acbShould this be performed at the bedside?->YesFINAL REPORT Chest, portable AP view History: Stable postop Comparison: 03/15/2017 IMPRESSION: The tip of the endotracheal tube is approximately 3.6 in relation above the maricarmen.Right IJ central venous catheter is in place with distal tip overlying the mid SVC. Mediastinal and left chest tubes are in place. There is no pneumothorax. Left basilar atelectasis is present. A nasogastric tube is in place with the distal tip overlying the gastric body. The heart is of stable size and configuration. Patient is status post median sternotomy and CABG. Signed: Dean Grey MDReportVerified Date/Time: 03/16/2017 18:48:37 Reading Location: [address] Consult Reading Room PROTHROMBIN [id number] 18: 40:00 Test Item Value Reference Range Comments PROTIME (BEAKER) (test anof=224) 17.4 seconds 11.7-14.7 INR (BEAKER) (test jshv=889) 1.4 <=5.9 RECOMMENDED COUMADIN/WARFARIN INR THERAPY RANGESSTANDARD DOSE: 2.0 - 3.0 Includes: PROPHYLAXIS forvenous thrombosis, systemic embolization; TREATMENT for venous thrombosis and/or pulmonary embolus.HIGH RISK: Target INR is 2.5-3.5 for patients with mechanical heart valves.[id number] 18:40:00 Test Item Value Reference Range Comments FIBRINOGEN LEVEL (BEAKER) (test iaso=019) 282 mg/dl 225-434 [id number] 18:40:00 Test Item Value Reference Range Comments PARTIAL THROMBOPLASTIN TIME (BEAKER) (test 30.3 seconds 22.5-36.0 jaxw=197) [id number] 18:33:00 Test Item Value Reference Range Comments MAGNESIUM (BEAKER) (test 3.1 mg/dL 1.6-2.6 Specimen slightly hemolyzed ylsa=755) [id number] 18:33:00 Test Item Value Reference Range Comments PHOSPHORUS (BEAKER) (test 2.4 mg/dL 2.3-4.7 Specimen slightly hemolyzed ffrm=380) PLATELET [id number] 18:33:00 Test Item Value Reference Range Comments PLATELET COUNT (BEAKER) (test catq=909) 160 K/CU MM 150-450 LACTIC ACID, ARTERIAL, WHOLE [id number] 18:32:00 Test Item Value Reference Range Comments LACTATE BLOOD ARTERIAL (2) 1.6 mmol/L 0.5-2.2 Specimen slightly hemolyzed (BEAKER) (test gbqj=9693) Effective 09/11/2015: Units/Reference Range ChangeNew: 0.5-2.2 mmol/L Previous: 5 -20 mg/dLOXYGEN SATURATION, [id number] 18:18:00 Test Item Value Reference Range Comments O2 SATURATION (MEASURED) (BEAKER) (test wwjv=7933) 76.7 % BLOOD GAS, [id number] 18:17:00 Test Item Value Reference Range Comments PH ARTERIAL (BEAKER) (test lzqz=422) 7.37 7.35-7.45 PCO2 ARTERIAL (BEAKER) (test gogf=356) 40 mmHg 35-45 PO2 ARTERIAL (BEAKER) (test evwy=978) 100 mmHg 80-90 O2 SATURATION ARTERIAL (BEAKER) (test lluo=499) 97.7 % 96.0-97.0 HCO3 ARTERIAL (BEAKER) (test rytp=647) 23 mmol/L 21-29 BASE EXCESS ARTERIAL (BEAKER) (test kosr=360) -2.6 mmol/L -2.0-3.0 PATIENT TEMPERATURE (BEAKER) (test jzxt=6163) 35.8 C FIO2 (BEAKER) (test ijub=8547) 60.0 % GLUCOSE-STAT [id number] 18:17:00 Test Item Value Reference Range Comments GLUCOSE RANDOM (BEAKER) (test gcgq=006) 183 mg/dL 70-110 HGB/HCT (H&H) - STAT [id number] 18:17:00 Test Item Value Reference Range Comments HEMOGLOBIN (BEAKER) (test whrt=815) 10.4 g/dL 12.0-15.0 HEMATOCRIT (BEAKER) (test zloz=588) 31.0 % 36.0-45.0 CALCIUM, [id number] 18:16:00 Test Item Value Reference Range Comments CALCIUM IONIZED (BEAKER) (test zzbz=728) 1.15 mmol/L 1.12-1.27 PH, BLOOD (BEAKER) (test lmjz=6884) 7.36 SODIUM NA-STAT [id number] 18:16:00 Test Item Value Reference Range Comments SODIUM (BEAKER) (test iymn=594) 137 meq/L 135-148 POTASSIUM-STAT [id number] 18:16:00 Test Item Value Reference Range Comments POTASSIUM (BEAKER) (test cegq=590) 3.7 meq/L 3.6-5.5 [id number] 17:31:00 Test Item Value Reference Range Comments ACTIVATED CLOTTING TIME 109 sec TESTED AT [address] (BEAKER) (test cvog=350) [place] [address] [id number] 17:31:00 Test Item Value Reference Range Comments ACTIVATED CLOTTING TIME 488 sec TESTED AT [address] (BEAKER) (test yfxq=958) [place] [address] [id number] 17:31:00 Test Item Value Reference Range Comments ACTIVATED CLOTTING TIME 439 sec TESTED AT [address] (BEAKER) (test dxcb=356) [place] [address] [id number] 17:30:00 Test Item Value Reference Range Comments ACTIVATED CLOTTING TIME 472 sec TESTED AT [address] ([facility]) (test btfi=089) [place] [address] THROMBOELASTOGRAPH (TEG)2017-03-16 17:18:00 Test Item Value Reference Range Comments TEG ACTIVATED CLOTTING TIME (BEAKER) (test 7.2 minutes 4.0-7.0 ocnm=9151) TEG FIBRINOGEN ACTIVITY (BEAKER) (test 72.1 degrees 61.0-73.0 brpi=8669) TEG PLT. AGGREGATION (BEAKER) (test ytdd=8738) 66.7 MM 55.0-65.0 TGH ACTIVATED CLOTTING TIME (BEAKER) (test 7.5 minutes 4.0-7.0 cwza=7094) TGH FIBRINOGEN ACTIVITY (BEAKER) (test 73.4 degrees 61.0-73.0 hkfd=2140) TGH PLT. AGGREGATION (BEAKER) (test kstq=5253) 64.2 MM 55.0-65.0 [id number] 16:51:00 Test Item Value Reference Range Comments FIBRINOGEN LEVEL (BEAKER) (test njfu=491) 276 mg/dl 225-434 [id number] 16:51:00 Test Item Value Reference Range Comments PARTIAL THROMBOPLASTIN TIME (BEAKER) (test 32.1 seconds 22.5-36.0 tmfj=459) PROTHROMBIN [id number] 16:50:00 Test Item Value Reference Range Comments PROTIME (BEAKER) (test ynns=337) 19.1 seconds 11.7-14.7 INR (BEAKER) (test ywrz=896) 1.6 <=5.9 RECOMMENDED COUMADIN/WARFARIN INR THERAPY RANGESSTANDARD DOSE: 2.0 - 3.0 Includes: PROPHYLAXIS forvenous thrombosis, systemic embolization; TREATMENT for venous thrombosis and/or pulmonary embolus.HIGH RISK: Target INR is 2.5-3.5 for patients with mechanical heart valves.HGB/HCT (H&H) - STAT [id number] 16:39:00 Test Item Value Reference Range Comments HEMOGLOBIN (BEAKER) (test ntih=138) 8.2 GM/DL 12.0-15.0 HEMATOCRIT (BEAKER) (test kkfr=952) 24.0 % 36.0-45.0 POTASSIUM-STAT [id number] 16:39:00 Test Item Value Reference Range Comments POTASSIUM (BEAKER) (test cpbp=753) 4.6 meq/L 3.6-5.5 SODIUM NA-STAT [id number] 16:39:00 Test Item Value Reference Range Comments SODIUM (BEAKER) (test omuk=943) 133 meq/L 135-148 BLOOD GAS, [id number] 16:38:00 Test Item Value Reference Range Comments PH ARTERIAL (BEAKER) (test dtvn=485) 7.39 7.35-7.45 PCO2 ARTERIAL (BEAKER) (test wott=656) 37 mm Hg 35-45 PO2 ARTERIAL (BEAKER) (test uwql=611) 258 mm Hg 80-90 O2 SATURATION ARTERIAL (BEAKER) (test hget=046) 99.6 % 96.0-97.0 HCO3 ARTERIAL (BEAKER) (test dsxg=467) 22 mmol/L 21-29 BASE EXCESS ARTERIAL (BEAKER) (test dusb=472) -3.1 mmol/L -2.0-3.0 PATIENT TEMPERATURE (BEAKER) (test xsae=5923) 36.0 FIO2 (BEAKER) (test lszo=3546) 98 GLUCOSE-STAT [id number] 16:38:00 Test Item Value Reference Range Comments GLUCOSE RANDOM (BEAKER) (test zvjk=092) 154 mg/dL 70-110 CALCIUM, [id number] 16:37:00 Test Item Value Reference Range Comments CALCIUM IONIZED (BEAKER) (test sapj=025) 0.99 mmol/L 1.12-1.27 PH, BLOOD (BEAKER) (test ubkb=4568) 7.37 BLOOD GAS, [id number] 15:55:00 Test Item Value Reference Range Comments PH ARTERIAL (BEAKER) (test ysbf=764) 7.45 7.35-7.45 PCO2 ARTERIAL (BEAKER) (test qgqc=809) 34 mmHg 35-45 PO2 ARTERIAL (BEAKER) (test hidw=795) 378 mmHg 80-90 O2 SATURATION ARTERIAL (BEAKER) (test ngsn=716) 99.8 % 96.0-97.0 HCO3 ARTERIAL (BEAKER) (test jefk=542) 24 mmol/L 21-29 BASE EXCESS ARTERIAL (BEAKER) (test nfmj=822) -0.9 mmol/L -2.0-3.0 PATIENT TEMPERATURE (BEAKER) (test whyr=9529) 34.5 C FIO2 (BEAKER) (test gjvm=2931) 75.0 % SODIUM NA-STAT [id number] 15:55:00 Test Item Value Reference Range Comments SODIUM (BEAKER) (test iual=523) 131 meq/L 135-148 POTASSIUM-STAT [id number] 15:55:00 Test Item Value Reference Range Comments POTASSIUM (BEAKER) (test flog=183) 5.6 meq/L 3.6-5.5 GLUCOSE-STAT [id number] 15:55:00 Test Item Value Reference Range Comments GLUCOSE RANDOM (BEAKER) (test sdry=525) 124 mg/dL 70-110 HGB/HCT (H&H) - STAT [id number] 15:55:00 Test Item Value Reference Range Comments HEMOGLOBIN (BEAKER) (test ycwr=462) 7.6 g/dL 12.0-15.0 HEMATOCRIT (BEAKER) (test bjdn=260) 22.0 % 36.0-45.0 BLOOD GAS, [id number] 15:34:00 Test Item Value Reference Range Comments PH VENOUS (BEAKER) (test bfcm=238) 7.47 7.32-7.42 PCO2 VENOUS (BEAKER) (test lhfb=236) 29 mmHg 41-51 PO2 VENOUS (BEAKER) (test xkbz=801) 46 mmHg 25-40 O2 SATURATION VENOUS (BEAKER) (test irtl=587) 95.6 % 40.0-70.0 HCO3 VENOUS (BEAKER) (test dfcz=894) 23 mmol/L 21-29 BASE EXCESS VENOUS (BEAKER) (test gmsx=194) -2.8 mmol/L -2.0-3.0 PATIENT TEMPERATURE (BEAKER) (test fdsg=0536) 28.0 C FIO2 (BEAKER) (test rjpw=6573) 60.0 % BLOOD GAS, [id number] 15:34:00 Test Item Value Reference Range Comments PH ARTERIAL (BEAKER) (test mxls=313) 7.49 7.35-7.45 PCO2 ARTERIAL (BEAKER) (test uxwe=279) 29 mmHg 35-45 PO2 ARTERIAL (BEAKER) (test aawy=167) 358 mmHg 80-90 O2 SATURATION ARTERIAL (BEAKER) (test erhj=153) 99.8 % 96.0-97.0 HCO3 ARTERIAL (BEAKER) (test xmqg=254) 24 mmol/L 21-29 BASE EXCESS ARTERIAL (BEAKER) (test toxx=901) -1.6 mmol/L -2.0-3.0 PATIENT TEMPERATURE (BEAKER) (test xnzp=1061) 28.0 C FIO2 (BEAKER) (test cned=3821) 60.0 % SODIUM NA-STAT [id number] 15:34:00 Test Item Value Reference Range Comments SODIUM (BEAKER) (test qcxc=025) 130 meq/L 135-148 HGB/HCT (H&H) - STAT [id number] 15:34:00 Test Item Value Reference Range Comments HEMOGLOBIN (BEAKER) (test ptlx=436) 7.0 g/dL 12.0-15.0 HEMATOCRIT (BEAKER) (test pbgd=596) 21.0 % 36.0-45.0 GLUCOSE-STAT [id number] 15:33:00 Test Item Value Reference Range Comments GLUCOSE RANDOM (BEAKER) (test ynvh=921) 109 mg/dL 70-110 POTASSIUM-STAT [id number] 15:33:00 Test Item Value Reference Range Comments POTASSIUM (BEAKER) (test jqjf=556) 5.1 meq/L 3.6-5.5 GLUCOSE-STAT [id number] 14:28:00 Test Item Value Reference Range Comments GLUCOSE RANDOM (BEAKER) (test qeoj=842) 95 mg/dL 70-110 POTASSIUM-STAT [id number] 14:28:00 Test Item Value Reference Range Comments POTASSIUM (BEAKER) (test ursi=497) 4.2 meq/L 3.6-5.5 HGB/HCT (H&H) - STAT [id number] 14:28:00 Test Item Value Reference Range Comments HEMOGLOBIN (BEAKER) (test jjjv=555) 12.2 g/dL 12.0-15.0 HEMATOCRIT (BEAKER) (test cgng=803) 36.0 % 36.0-45.0 BLOOD GAS, [id number] 14:28:00 Test Item Value Reference Range Comments PH ARTERIAL (BEAKER) (test khlm=860) 7.50 7.35-7.45 PCO2 ARTERIAL (BEAKER) (test srjm=692) 30 mmHg 35-45 PO2 ARTERIAL (BEAKER) (test buqy=023) 373 mmHg 80-90 O2 SATURATION ARTERIAL (BEAKER) (test deru=709) 99.8 % 96.0-97.0 HCO3 ARTERIAL (BEAKER) (test qzcd=635) 23 mmol/L 21-29 BASE EXCESS ARTERIAL (BEAKER) (test uvsk=152) 0.0 mmol/L -2.0-3.0 PATIENT TEMPERATURE (BEAKER) (test ndcv=2398) 36.0 C FIO2 (BEAKER) (test boop=8491) 100.0 % SODIUM NA-STAT [id number] 14:28:00 Test Item Value Reference Range Comments SODIUM (BEAKER) (test ravo=811) 134 meq/L 135-148 CALCIUM, [id number] 14:28:00 Test Item Value Reference Range Comments CALCIUM IONIZED (BEAKER) (test svzc=456) 1.09 mmol/L 1.12-1.27 PH, BLOOD (BEAKER) (test gbpk=9641) 7.48 PLATELET AGGREGATION: DRUG [id number] 09:39:00 Test Item Value Reference Range Comments STRONG ADP RESULT(BEAKER) (test 71 % 70-94 xdsc=4242) WEAK ADP RESULT(BEAKER) (test 57 % 60-91 hbst=1426) ARACHADONIC ACID RESULT(BEAKER) < % 63-89 (test rjcc=2202) PLATELET AGG DRUG INTERPRETATION Decreased response to (BEAKER) (test kasy=2706) arachidonic acid suggests aspirin-like effect. [id number] (BEAKER) Monisha Roy MD (test cogz=2319) (electronic signature) PLATELET COUNT AGG (BEAKER) 307 K/CU MM 150-450 (test ixnx=3444) RAD, CHEST, 2 [id number] 23:50:00Reason for exam:->PreopFINAL REPORT EXAMINATION: 2 VIEW CHEST INDICATION: SHORTNESS OF BREATH IMPRESSION: No comparison studies are available. No evidence of focal lung consolidation, pulmonary edema or pleural effusion. The heart size is normal. Mediastinal contours are sharp with a mildly ectatic and/or dilated thoracic aorta.. No evidence of an acute osseous abnormality or pneumothorax. Signed: Boni Ng Verified Date/Time: 03/15/2017 23:50:09 Reading Location: [address] Reading Room [id number] 22:01:00 Test Item Value Reference Range Comments PARTIAL THROMBOPLASTIN TIME (BEAKER) (test 28.8 seconds 22.5-36.0 xvnx=523) PROTHROMBIN [id number] 22:00:00 Test Item Value Reference Range Comments PROTIME (BEAKER) (test nwol=773) 12.8 seconds 11.7-14.7 INR (BEAKER) (test hvlp=574) 1.0 <=5.9 RECOMMENDED COUMADIN/WARFARIN INR THERAPY RANGESSTANDARD DOSE: 2.0 - 3.0 Includes: PROPHYLAXIS forvenous thrombosis, systemic embolization; TREATMENT for venous thrombosis and/or pulmonary embolus.HIGH RISK: Target INR is 2.5-3.5 for patients with mechanical heart valves.COMPREHENSIVE METABOLIC [id number] 21:57:00 Test Item Value Reference Range Comments TOTAL PROTEIN (BEAKER) 6.4 gm/dL 6.0-8.3 (test iaxd=200) ALBUMIN (BEAKER) (test 3.5 g/dL 3.5-5.0 ywhb=6598) ALKALINE PHOSPHATASE 83 U/L 40-150 (BEAKER) (test lpni=751) BILIRUBIN TOTAL (BEAKER) 0.3 mg/dL 0.2-1.2 (test wirg=922) SODIUM (BEAKER) (test 137 meq/L 136-145 mspm=375) POTASSIUM (BEAKER) (test 4.4 meq/L 3.5-5.1 krsg=768) CHLORIDE (BEAKER) (test 103 meq/L 98-107 pfsf=840) CO2 (BEAKER) (test 25 meq/L 22-29 itbn=000) BLOOD UREA NITROGEN 18 mg/dL 7-21 (BEAKER) (test fpch=842) CREATININE (BEAKER) (test 0.91 mg/dL 0.57-1.25 rygp=807) GLUCOSE RANDOM (BEAKER) 135 mg/dL 70-105 (test izxy=481) CALCIUM (BEAKER) (test 9.2 mg/dL 8.4-10.2 rezt=729) AST (SGOT) (BEAKER) (test 18 U/L 5-34 nwzv=638) ALT (SGPT) (BEAKER) (test 11 U/L 6-55 hawt=981) EGFR (BEAKER) (test 62 mL/min/1.73 sq m ESTIMATED GFR IS NOT btku=2132) ACCURATE CREATININE CLEARANCE IN PREDICTING GLOMERULAR FILTRATION RATE. ESTIMATED GFR IS NOT APPLICABLE FOR DIALYSIS PATIENTS. CBC W/PLT COUNT & AUTO [id number] 21:37:00 Test Item Value Reference Range Comments WHITE BLOOD CELL COUNT (BEAKER) (test ldzf=677) 8.6 K/ L 3.5-10.5 RED BLOOD CELL COUNT (BEAKER) (test cwhd=026) 3.98 M/ L 3.93-5.22 HEMOGLOBIN (BEAKER) (test agma=686) 12.2 GM/DL 11.2-15.7 HEMATOCRIT (BEAKER) (test mdxd=224) 37.1 % 34.1-44.9 MEAN CORPUSCULAR VOLUME (BEAKER) (test wjxy=985) 93.2 fL 79.4-94.8 MEAN CORPUSCULAR HEMOGLOBIN (BEAKER) (test 30.7 pg 25.6-32.2 fmwm=649) MEAN CORPUSCULAR HEMOGLOBIN CONC (BEAKER) (test 32.9 GM/DL 32.2-35.5 krjj=806) RED CELL DISTRIBUTION WIDTH (BEAKER) (test 12.0 % 11.7-14.4 wedw=343) PLATELET COUNT (BEAKER) (test iobv=061) 287 K/CU MM 150-450 MEAN PLATELET VOLUME (BEAKER) (test fkhq=178) 10.1 fL 9.4-12.3 NUCLEATED RED BLOOD CELLS (BEAKER) (test 0 /100 WBC 0-0 rsiw=906) NEUTROPHILS RELATIVE PERCENT (BEAKER) (test 61 % ovei=122) LYMPHOCYTES RELATIVE PERCENT (BEAKER) (test 27 % lwqq=327) MONOCYTES RELATIVE PERCENT (BEAKER) (test 8 % yiep=028) EOSINOPHILS RELATIVE PERCENT (BEAKER) (test 4 % xjhx=432) BASOPHILS RELATIVE PERCENT (BEAKER) (test 0 % puvb=027) NEUTROPHILS ABSOLUTE COUNT (BEAKER) (test 5.23 K/ L 1.56-6.13 plqz=913) LYMPHOCYTES ABSOLUTE COUNT (BEAKER) (test 2.30 K/ L 1.18-3.74 hlfx=541) MONOCYTES ABSOLUTE COUNT (BEAKER) (test 0.69 K/ L 0.24-0.36 guap=870) EOSINOPHILS ABSOLUTE COUNT (BEAKER) (test 0.36 K/ L 0.04-0.36 muml=162) BASOPHILS ABSOLUTE COUNT (BEAKER) (test 0.02 K/ L 0.01-0.08 nwxf=752) IMMATURE GRANULOCYTES-RELATIVE PERCENT (BEAKER) 0 % 0-1 (test ycow=9952)
--- NOTE | 2018-10-07 12:20 | RAD REPORT ---
EXAM DESCRIPTION: US - Extrem Venous W Compress Tomy - 10/07/2018 12:15 pm CLINICAL HISTORY: leg swelling Bilateral leg edema and swelling. COMPARISON: No comparisons TECHNIQUE: Real-time sonographic interrogation of the left and right lower extremity deep venous sys tems was performed. FINDINGS: Normal compressibility, flow augmentation, phasic flow and spontaneous flow is identified in both the left and right lower extremity deep venous systems. IMPRESSION: No sonographic evidence of left or right lower extremity deep venous thrombosis.
--- NOTE | 2018-10-07 12:32 | ER ---
Nurse's Notes [facility] Name: Martha Curtis Age: 68 yrs Sex: Female : 1950 Arrival Date: 10/07/2018 Time: 09:52 Bed 19 Private MD: Jarocho Mosqueda E Diagnosis: Unspecified abdominal pain;Edema, unspecified Presentation: 10/07 09:57 Presenting complaint: LUQ pain, nausea, SOB, and lower leg swelling x 3 days. Denies hb fever/cough. Transition of care: patient was not received from another setting of care. Onset of symptoms was October 04, 2018. Risk Assessment: Do you want to hurt yourself or someone else? Patient reports no desire to harm self or others. Care prior to arrival: None. 09:57 Method Of Arrival: Ambulatory 09:57 Acuity: CURTIS 3 hb 12:44 Initial Sepsis Screen: Does the patient meet any 2 criteria? No. Patient's initial aj sepsis screen is negative. Does the patient have a suspected source of infection? No. Patient's initial sepsis screen is negative. 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 - Social history:: Smoking status: Patient/guardian denies using tobacco. - Ebola Screening: : No symptoms or risks identified at this time. Screenin:48 Abuse screen: Denies threats or abuse. Denies injuries from another. Nutritional aj screening: No deficits noted. Tuberculosis screening: No symptoms or risk factors identified. Fall Risk None identified. Assessment: 10:48 General: Appears in no apparent distress. comfortable, Behavior is calm, cooperative, aj appropriate for age. Pain: Complains of pain in abdomen. Neuro: Level of Consciousness is awake, alert, obeys commands, Oriented to person, place, time, situation, Appropriate for age. Cardiovascular: Rhythm is regular. Respiratory: Reports shortness of breath Airway is patent Respiratory effort is even, unlabored, Respiratory pattern is regular, symmetrical, Breath sounds are clear. GI: Reports lower abdominal pain, upper abdominal pain. Derm: Skin is intact, is healthy with good turgor, Skin is pink, warm \T\ dry. normal. 12:43 Reassessment: Patient appears in no apparent distress at this time. No changes from aj previously documented assessment. Patient and/or family updated on plan of care and expected duration. Pain level reassessed. Patient is alert, oriented x 3, equal unlabored respirations, skin warm/dry/pink. Patient states symptoms have improved. Vital Signs: 09:58 BP 161 / 102; Pulse 70; Resp 18; Temp 97.9; Pulse Ox 100% on R/A; Weight 89.36 kg; hb Height 4 ft. 11 in. (149.86 cm); Pain 8/10; 12:22 BP 163 / 82; Pulse 64; Resp 20; Pulse Ox 96% on R/A; aj 12:43 BP 169 / 70; Pulse 62; Resp 17; Pulse Ox 99% on R/A; aj 09:58 Body Mass Index 39.79 (89.36 kg, 149.86 cm) hb ED Course: 09:52 Patient arrived in ED. mr 09:53 Jarocho Mosqueda MD is Private Physician. mr 09:58 Triage completed. hb 09:58 Arm band placed on. hb 10:01 Claudy Villanueva PA is PHCP. jmm 10:01 Bhanu Donovan MD is Attending Physician. jmm 10:24 CT completed. Patient tolerated procedure well. Patient moved to CT via wheelchair. sj Patient moved to radiology Patient moved back from CT. 10:25 CT Abd/Pelvis - Without Cont In Process Unspecified. EDMS 10:44 XRAY Chest (1 view) In Process Unspecified. EDMS 10:47 Initial lab(s) drawn, by la, sent to lab. Inserted saline lock: 20 gauge in right em1 antecubital area, using aseptic technique. Blood collected. 10:48 Velma Weller, RN is Primary Nurse. aj 10:48 Patient has correct armband on for positive identification. aj 10:59 EKG done, by technical operations vice president. reviewed by Claudy HEADLEY. sm3 12:21 US Extremity Venous W Compression Tomy In Process Unspecified. EDMS 12:31 Jarocho Mosqueda MD is Referral Physician. jmm 12:43 No provider procedures requiring assistance completed. IV discontinued, intact, aj bleeding controlled, No redness/swelling at site. Pressure dressing applied. Administered Medications: No medications were administered Outcome: 12:31 Discharge ordered by . adrian 12:43 Discharged to home ambulatory. alyssa 12:43 Condition: good 12:43 Discharge instructions given to patient, Instructed on discharge instructions, follow up and referral plans. medication usage, Demonstrated understanding of instructions, follow-up care, medications, Prescriptions given X 1. 12:45 Patient left the ED. alyssa Signatures: Dispatcher [employer] Velma Phelps, RN RN Claudy Yip PA PA jmm Rivera, Mary mr Ambriz, Chuck Lynn em1 Citlaly Lanza, RN RN Colette Irvin 3
--- NOTE | 2018-10-07 12:32 | EDPHYS ---
Physician Documentation [facility] Name: Martha Curtis Age: 68 yrs Sex: Female : 1950 Arrival Date: 10/07/2018 Time: 09:52 Bed 19 Private MD: Jarocho Mosqueda E ED Physician Bhanu Donovan HPI: 10/07 10:30 This 68 yrs old Female presents to ER via Ambulatory with complaints of jmm Shortness Of Breath, Leg Swelling, Abdominal Pain. 10:30 The patient has shortness of breath at rest. Onset: The symptoms/episode began/occurred jmm gradually, 1 month(s) ago. Associated signs and symptoms: Pertinent positives: shortness of breath. This is a 68 year old female with a history of CAD, CHF that presents to the ED with complaints of ongoing left upper quadrant abdominal pain. Patient states she has had this pain for the past year after a surgical procedure. Patient states the pain has worsened recently over the past week. Patient also complains of shortness of breath which has not resolved with furosemide. . 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 - Social history:: Smoking status: Patient/guardian denies using tobacco. - Ebola Screening: : No symptoms or risks identified at this time. ROS: 10:30 Constitutional: Negative for fever, chills, and weight loss, Cardiovascular: Negative jmm for chest pain, palpitations, and edema. 10:30 Respiratory: Positive for shortness of breath. 10:30 Abdomen/GI: Positive for abdominal pain. 10:30 All other systems are negative. Exam: 10:30 Head/Face: atraumatic. Eyes: EOMI, no conjunctival erythema appreciated ENT: Moist jmm Mucus Membranes Neck: Trachea midline, Supple Chest/axilla: Normal chest wall appearance and motion. 10:30 Constitutional: The patient appears in no acute distress, alert, awake. 10:30 Cardiovascular: Rate: normal, Rhythm: regular. 10:30 Respiratory: the patient does not display signs of respiratory distress, Respirations: normal, Breath sounds: are clear throughout. 10:30 Abdomen/GI: Inspection: obese Bowel sounds: normal, Palpation: soft, mild abdominal tenderness, in the left upper quadrant. 10:30 Back: ROM is normal. 10:30 Musculoskeletal/extremity: ROM: intact in all extremities. 10:30 Neuro: Orientation: is normal, Mentation: is normal, Memory: is normal. 10:30 Psych: Behavior/mood is pleasant, cooperative. Vital Signs: 09:58 BP 161 / 102; Pulse 70; Resp 18; Temp 97.9; Pulse Ox 100% on R/A; Weight 89.36 kg; hb Height 4 ft. 11 in. (149.86 cm); Pain 8/10; 12:22 BP 163 / 82; Pulse 64; Resp 20; Pulse Ox 96% on R/A; aj 12:43 BP 169 / 70; Pulse 62; Resp 17; Pulse Ox 99% on R/A; aj 09:58 Body Mass Index 39.79 (89.36 kg, 149.86 cm) hb MDM: 10:12 Patient medically screened. [facility] 12:29 Data reviewed: vital signs, nurses notes. Counseling: I had a detailed discussion with [facility] the patient and/or guardian regarding: the historical points, exam findings, and any diagnostic results supporting the discharge/admit diagnosis, radiology results, the need for outpatient follow up, to return to the emergency department if symptoms worsen or persist or if there are any questions or concerns that arise at home. ED course: Patient is alert and non toxic in appearance in the ED. Lungs CTA. CXR clear. Patient is advised to follow up with pcp for reevaluation. patient is otherwise given strict return precautions. Patient understood and agrees with the plan of care. . 10/07 10:13 Order name: Basic Metabolic Panel; Complete Time: : [facility] 10/07 10:13 Order name: CBC with Diff; Complete Time: [facility] 10/07 10:13 Order name: LFT's; Complete Time: : [facility] 10/07 10:13 Order name: Magnesium; Complete Time: [facility] 10/07 10:13 Order name: NT PRO-BNP; Complete Time: [facility] 10/07 10:13 Order name: PT-INR; Complete Time: : 10/07 10:13 Order name: Troponin (emerg Dept Use Only); Complete Time: 11:28 10/07 10:13 Order name: XRAY Chest (1 view); Complete Time: 10:47 10/07 10:13 Order name: EKG; Complete Time: 10:15 10/07 10:13 Order name: Cardiac monitoring; Complete Time: : [facility] 10/07 10:13 Order name: EKG - Nurse/Tech; Complete Time: : [facility] 10/07 10:13 Order name: Lipase; Complete Time: 11:28 10/07 10:13 Order name: CT Abd/Pelvis - Without Cont; Complete Time: : 10/07 11:31 Order name: US Extremity Venous W Compression Tomy; Complete Time: 12:23 10/07 10:13 Order name: IV Saline Lock; Complete Time: [facility] 10/07 10:13 Order name: Labs collected and sent; Complete Time: 10/07 10:13 Order name: O2 Per Protocol; Complete Time: 10/07 10:13 Order name: O2 Sat Monitoring; Complete Time: 10:59 Administered Medications: No medications were administered Disposition: 12:47 Co-signature as Attending Physician, Bhanu Donovan MD I agree with the assessment and kdr plan of care. Disposition: 10/07/18 12:31 Discharged to Home. Impression: Unspecified abdominal pain, Edema, unspecified. - Condition is Stable. - Discharge Instructions: Abdominal Pain, Adult, Edema. - Prescriptions for Ultracet 37.5- 325 mg Oral Tablet - take 1 tablet by ORAL route every 6 hours - for up to 5 days; do not exceed 8 tablets per day.; 12 tablet. - Medication Reconciliation Form, Thank You Letter, Antibiotic Education, Prescription Opioid Use form. - Follow up: Jarocho Mosqueda MD; When: 2 - 3 days; Reason: Recheck today's complaints, Continuance of care, Re-evaluation by your physician. Signatures: Dispatcher [employer] Velma Phelps RN RN aj Rittger, Kevin, MD MD kdr Mickail, Joel, PA PA Citlaly Cui RN RN Corrections: (The following items were deleted from the chart) 12:45 12:31 10/07/2018 12:31 Discharged to Home. Impression: Unspecified abdominal pain; aj Edema, unspecified. Condition is Stable. Forms are Medication Reconciliation Form, Thank You Letter, Antibiotic Education, Prescription Opioid Use. Follow up: Jarocho Mosqueda; When: 2 - 3 days; Reason: Recheck today's complaints, Continuance of care, Re-evaluation by your physician. adrian
--- NOTE | 2018-10-07 13:50 | EKG ---
Test Date: 2018-10-07 Test Time: 10:53:50 Party Host: OLIVE MEASUREMENT RESULTS: Intervals: Rate: 65 CO: 158 QRSD: 90 QT: 436 QTc: 453 [place]: P: 29 CO: 158 QRS: -18 T: 6 INTERPRETIVE STATEMENTS: Normal sinus rhythm Possible Anterolateral infarct, age undetermined Abnormal ECG Compared to ECG 03/14/2017 08:39:07 Sinus bradycardia no longer present Myocardial infarct finding still present Electronically Signed On 10-07-18 13:49:27 CDT by Guerrero Gallardo
[2018-10-07 14:14] VITALS: TEMP 97.9
[2018-10-07 14:17] VITALS: BP 169/70; O2SAT 99
== END 2018-10-07 12:45 | disposition home or self-care (01) ==
LOC: ER 09:49
DX: R60.9 Edema, unspecified (principal); I10 Essential (primary) hypertension; I50.9 Heart failure, unspecified; I25.10 Atherosclerotic heart disease of native coronary artery without angina pectoris; I25.2 Old myocardial infarction
CPT/HCPCS: 36415; 71045; 74176; 80048; 80076; 83690; 83735; 83880; 84484; 85025; 85610; 93005; 93970; 99284

== ENCOUNTER 2023-06-11 19:23 | Inpatient (IN) | payer OTHER ==
[2023-06-11 19:55] LABS: Lymphocytes % 19.6 % (15.3-44.8); MCV 93.5 fL (80-100); MPV 9.6 fL (7.6-11.3); Platelets 256 thou/uL (152-406); RBC Red Blood Cell Count 4.06 M/uL (3.86-4.86)
[2023-06-11 20:15] LABS: Magnesium 2.2 mg/dL (1.6-2.4); Potassium 4.1 mEq/L (3.5-5.1)
--- NOTE | 2023-06-11 20:52 | RAD REPORT ---
EXAM DESCRIPTION: Kati Single View06/11/2023 8:30 pm CLINICAL HISTORY: Shortness of breath COMPARISON: 2018 FINDINGS: Chronic elevation left hemidiaphragm with scarring left lung base Lungs appear clear of acute infiltrate. Heart mildly enlarged. Post surgical changes involve the chest
--- NOTE | 2023-06-11 22:54 | ER ---
Nurse's Notes [facility] Name: Martha Curtis Age: 72 yrs Sex: Female : 1950 Arrival Date: 06/11/2023 Time: 19:23 Bed 8 Private MD: Diagnosis: Unspecified combined systolic (congestive) and diastolic (congestive) heart failure;Acute kidney failure, unspecified;Ventricular premature depolarization Presentation: 06/11 19:35 Chief complaint: Patient states: shortness of breath for 2 days. Reports low heart rate cp4 as well as was told to see a handling tech. Coronavirus screen: Vaccine status: Client denies travel out of the [place] in the last 14 days. At this time, the client does not indicate any symptoms associated with coronavirus-19. Ebola Screen: Patient negative for fever greater than or equal to 101.5 degrees Fahrenheit, and additional compatible Ebola Virus Disease symptoms Patient denies exposure to infectious person. Patient denies travel to an Ebola-affected area in the 21 days before illness onset. No symptoms or risks identified at this time. Initial Sepsis Screen: Does the patient have a suspected source of infection? No. Patient's initial sepsis screen is negative. Initial Sepsis Screen: Does the patient meet any 2 criteria? No. Patient's initial sepsis screen is negative. Risk Assessment: Do you want to hurt yourself or someone else? Patient reports no desire to harm self or others. Onset of symptoms was June 09, 2023. 19:35 Method Of Arrival: Wheelchair cp4 19:35 Acuity: CURTIS 3 cp4 Triage Assessment: 20:13 General: Appears comfortable, Behavior is calm, cooperative. Pain: Complains of pain in rv HEADACHE. Neuro: Level of Consciousness is awake, alert, obeys commands, Oriented to person, place, time, situation. Cardiovascular: Capillary refill < 3 seconds Patient's skin is warm and dry. Respiratory: Airway is patent Respiratory effort is even, unlabored, Onset: The symptoms/episode began/occurred today. Respiratory: Breath sounds are clear bilaterally. Respiratory: Reports shortness of breath at rest. Respiratory: the patient has mild shortness of breath. GI: No signs and/or symptoms were reported involving the gastrointestinal system. : No signs and/or symptoms were reported regarding the genitourinary system. Derm: Skin is intact. 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 - Social history:: Smoking status: Patient/guardian denies using tobacco, the patient reports quitting approximately 7 years ago. Screenin:40 [facility] ED Fall Risk Assessment (Adult) History of falling in the last 3 months, km8 including since admission No falls in past 3 months (0 pts) Confusion or Disorientation No (0 pts) Intoxicated or Sedated No (0 pts) Impaired Gait No (0 pts) Mobility Assist Device Used No (0 pt) Altered Elimination No (0 pt) Score/Fall Risk Level 0 - 2 = Low Risk Oriented to surroundings, Maintained a safe environment, Educated pt \T\ family on fall prevention, incl call for assistance when getting out of bed, Assessed \T\ reinforced patient's understanding of fall precautions. Abuse screen: Denies threats or abuse. Nutritional screening: No deficits noted. Tuberculosis screening: No symptoms or risk factors identified. Assessment: 19:40 General: Appears in no apparent distress. uncomfortable, Behavior is cooperative, km8 appropriate for age. Pain: Complains of pain in chest and abdomen Pain currently is 6 out of 10 on a pain scale. Neuro: Level of Consciousness is awake, alert, obeys commands, Oriented to person, place, time, situation. Cardiovascular: Reports chest pain, shortness of breath, Capillary refill < 3 seconds Patient's skin is warm and dry. Rhythm is multiple PVC's. Respiratory: Reports shortness of breath cough that is labored breathing Airway is patent Respiratory effort is even, labored, Respiratory pattern is regular, symmetrical, Breath sounds with wheezes bilaterally. the patient has moderate shortness of breath. GI: No signs and/or symptoms were reported involving the gastrointestinal system. : No signs and/or symptoms were reported regarding the genitourinary system. EENT: No signs and/or symptoms were reported regarding the EENT system. Derm: No signs and/or symptoms reported regarding the dermatologic system. Skin is intact, Skin is dry, Skin is pink, warm \T\ dry. normal, Skin temperature is warm. Musculoskeletal: No signs and/or symptoms reported regarding the musculoskeletal system. Range of motion: intact in all extremities. 21:00 Reassessment: Patient appears in no apparent distress at this time. No changes from km8 previously documented assessment. Patient and/or family updated on plan of care and expected duration. Pain level reassessed. Patient is alert, oriented x 3, equal unlabored respirations, skin warm/dry/pink. 22:00 Reassessment: Patient appears in no apparent distress at this time. No changes from km8 previously documented assessment. Patient and/or family updated on plan of care and expected duration. Pain level reassessed. Patient is alert, oriented x 3, equal unlabored respirations, skin warm/dry/pink. 22:52 Reassessment: pt took home dose of Losartan 50mg; ER MD aware. km8 Vital Signs: 19:35 BP 188 / 77; Pulse 66; Resp 26; Temp 98.2; Pulse Ox 89% ; Weight 90.72 kg; Height 4 ft. cp4 11 in. ; 20:00 BP 187 / 73; Pulse 70; Resp 22; Pulse Ox 99% on 2 lpm NC; km8 21:00 BP 161 / 92; Pulse 65; Resp 22; Pulse Ox 99% on 3 lpm NC; km8 22:00 BP 193 / 62; Pulse 70; Resp 22; Pulse Ox 97% on 3 lpm NC; km8 06/12 00:51 BP 191 / 76; Pulse 72; Resp 17; Temp 98; Pulse Ox 97% on 3 lpm NC; rv 06/11 19:35 Body Mass Index 40.39 (90.72 kg, 149.86 cm) cp4 [place] Coma Score: 06/11 19:40 Eye Response: spontaneous(4). Motor Response: obeys commands(6). Verbal Response: km8 oriented(5). Total: 15. ED Course: 19:28 Patient arrived in ED. es 19:32 Pedro Bateman DO is Attending Physician. ms3 19:37 Triage completed. cp4 19:40 No provider procedures requiring assistance completed. Oxygen administration via nasal km8 cannula \T\ 2L/min. 19:40 Patient has correct armband on for positive identification. Bed in low position. Call km8 light in reach. Side rails up X2. Client placed on continuous cardiac and pulse oximetry monitoring. NIBP monitoring applied. Door closed. Lights dimmed. 19:48 Inserted saline lock: 22 gauge in right antecubital area, using aseptic technique. km8 Blood collected. 19:50 Basic Metabolic Panel Sent. 8 19:50 CBC with Diff Sent. km8 19:50 NT PRO-BNP Sent. 8 19:50 Troponin HS Sent. km8 20:13 Karl Mcgarry, RN is Primary Nurse. rv 20:13 Arm band placed on right wrist. rv 20:29 Attending Physician role handed off by Pedro Bateman DO ms3 20:29 Edna Hernández is Attending Physician. ms3 20:31 XRAY Chest (1 view) In Process Unspecified. EDMS 22:52 Francesco Gutierrez MD is Hospitalizing Provider. ci 06/12 00:51 Patient admitted, IV remains in place. rv Administered Medications: No medications were administered Medication: 06/11 19:40 VIS not applicable for this client. [facility] Outcome: 22:53 Decision to Hospitalize by Provider. ci 06/12 00:51 Admitted to Med/surg accompanied by tech, via wheelchair, room 230, on monitor, with rv chart, Report called to BOAZ WRIGHT Condition: good Instructed on the need for admit, 00:52 Patient left the ED. rv Signatures: Dispatcher [employer] EDAfia Palomo Ronaldo, RN RN rv Pedro Bateman DO DO ms3 Rosa Maria De Paz cp4 Edna Hernández ci Ammy Johnson RN RN km8 Corrections: (The following items were deleted from the chart) 06/11 20:14 20:13 Allergies: No Known Allergies; rv rv
--- NOTE | 2023-06-11 22:54 | EDPHYS ---
Physician Documentation [facility] Name: Martha Curtis Age: 72 yrs Sex: Female : 1950 Arrival Date: 06/11/2023 Time: 19:23 Bed 8 Private MD: ED Physician Edna Hernández HPI: 06/11 20:26 This 72 yrs old Female presents to ER via Wheelchair with complaints of ms3 Breathing Difficulty. 20:26 72-year-old female with past medical history of arthritis, bulging disc, ms3 hyperlipidemia, hypertension presents to the emergency department for shortness of breath began 3 days prior to arrival. Patient states shortness of breath is worse with walking. Patient denies alleviating factors. Patient endorses epigastric pain that she rates 4/10. Patient denies nausea, vomiting, diarrhea. 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 - Social history:: Smoking status: Patient/guardian denies using tobacco, the patient reports quitting approximately 7 years ago. ROS: 20:26 Constitutional: Negative for fever, and chills. ENT: Negative for injury, pain, and ms3 discharge, Neck: Negative for injury, pain, and swelling, Cardiovascular: Negative for chest pain, and palpitations. 20:26 MS/Extremity: Negative for injury and deformity, Skin: Negative for injury, rash, and discoloration, 20:26 Respiratory: Positive for dyspnea on exertion, shortness of breath, 20:26 Abdomen/GI: Positive for abdominal pain, Negative for nausea, vomiting, and diarrhea, Exam: 20:26 Constitutional: This is a well developed, well nourished patient who is awake, alert, ms3 and in no acute distress. Head/Face: Normocephalic, atraumatic. Neck: Trachea midline, no cervical lymphadenopathy. Supple, full range of motion without nuchal rigidity, or vertebral point tenderness. No Meningismus. Chest/axilla: Normal chest wall appearance and motion. Nontender with no deformity. Cardiovascular: Regular rate and rhythm with a normal S1 and S2. No gallops, murmurs, or rubs. Normal PMI, no JVD. No pulse deficits. Respiratory: Lungs have equal breath sounds bilaterally, clear to auscultation and percussion. No rales, rhonchi or wheezes noted. No increased work of breathing, no retractions or nasal flaring. Abdomen/GI: Soft, non-tender, with normal bowel sounds. No distension or tympany. No guarding or rebound. No evidence of tenderness throughout. Skin: Warm, dry with normal turgor. Normal color with no rashes, no lesions, and no evidence of cellulitis. MS/ Extremity: Pulses equal, no cyanosis. Neurovascular intact. Full, normal range of motion. 20:26 ECG was reviewed by the Attending Physician. ms3 Vital Signs: 19:35 BP 188 / 77; Pulse 66; Resp 26; Temp 98.2; Pulse Ox 89% ; Weight 90.72 kg; Height 4 ft. cp4 11 in. ; 20:00 BP 187 / 73; Pulse 70; Resp 22; Pulse Ox 99% on 2 lpm NC; km8 21:00 BP 161 / 92; Pulse 65; Resp 22; Pulse Ox 99% on 3 lpm NC; km8 22:00 BP 193 / 62; Pulse 70; Resp 22; Pulse Ox 97% on 3 lpm NC; km8 / 00:51 BP 191 / 76; Pulse 72; Resp 17; Temp 98; Pulse Ox 97% on 3 lpm NC; rv 06/11 19:35 Body Mass Index 40.39 (90.72 kg, 149.86 cm) cp4 [place] Coma Score: 06/11 19:40 Eye Response: spontaneous(4). Motor Response: obeys commands(6). Verbal Response: km8 oriented(5). Total: 15. MDM: 19:38 Patient medically screened. ms3 20:26 Differential diagnosis: Anemia CHF exacerbation, Myocardial Infarction. ms3 20:29 Transition of care: After a detail discussion of the patient's case, care is ms3 transferred to [facility]. 06/11 19:39 Order name: Basic Metabolic Panel; Complete Time: 20:26 ms3 06/11 21:11 Interpretation: Abnormal: CRE 1.53. ci 06/11 19:39 Order name: CBC with Diff; Complete Time: 20:26 ms3 06/11 19:39 Order name: Magnesium; Complete Time: 20:26 ms3 06/11 19:39 Order name: NT PRO-BNP; Complete Time: 20:26 ms3 06/11 21:11 Interpretation: Abnormal: NT PRO-BNP 5362. ci 06/11 19:39 Order name: Troponin HS; Complete Time: 20:26 ms3 06/12 00:07 Order name: Lipid Profile EDMS 06/12 00:07 Order name: Lipid Profile EDMS 06/11 19:39 Order name: XRAY Chest (1 view); Complete Time: 21:10 ms3 06/11 21:10 Interpretation: Per Radiologist's finding(s): FINDINGS: Chronic elevation left ci hemidiaphragm with scarring left lung base Lungs appear clear of acute infiltrate. Heart mildly enlarged. Post surgical changes involve the chest. 06/11 19:39 Order name: EKG; Complete Time: 19:40 ms3 06/11 19:39 Order name: Cardiac monitoring; Complete Time: 19:42 ms3 06/11 19:39 Order name: EKG - Nurse/Tech; Complete Time: 19:42 ms3 06/11 19:39 Order name: IV Saline Lock; Complete Time: 19:50 ms3 06/11 19:39 Order name: Labs collected and sent; Complete Time: 19:50 ms3 06/11 19:39 Order name: O2 Per Protocol; Complete Time: 19:42 ms3 06/11 19:39 Order name: O2 Sat Monitoring; Complete Time: 19:42 ms3 EC:26 Rate is 76 beats/min. Rhythm is irregularly irregular. QRS [place] is Normal. QRS interval ms3 is normal. Clinical impression: NSR w/ Non-specific ST/T Changes and with multiple PVCs. Interpreted by me. Reviewed by me. Administered Medications: No medications were administered Disposition Summary: 06/11/23 22:53 Hospitalization Ordered Notes: Hospitalization Status: Inpatient Admission ci Provider: Francesco Gutierrez Location: Telemetry/MedSurg (Inpatient) ci Condition: Stable ci Problem: new ci Symptoms: are unchanged ci Bed/Room Type: Standard Room Assignment: 230(06/11/23 23:13) cg Diagnosis - Unspecified combined systolic (congestive) and diastolic (congestive) heart failure ci - Acute kidney failure, unspecified ci - Ventricular premature depolarization ci Forms: - Medication Reconciliation Form ci - SBAR form ci - Leadership Thank You Letter ci Signatures: Dispatcher [employer] Marguerite Guevara, RN RN Karl Mcgarry RN RN rv Pedro Bateman DO DO ms3 Iheonunekwu, [place] ci Corrections: (The following items were deleted from the chart) 20:14 20:13 Allergies: No Known Allergies; [facility] 23:13 22:53 ci cg
[2023-06-12] MEDS ORDERED: ONDANSETRON 4 MG/2 ML VIAL IV PRN (00:02)
--- NOTE | 2023-06-12 00:07 | P.HP ---
Certification for Inpatient Patient admitted to: Observation With expected LOS: <2 Midnights Practitioner: I am a practitioner with admitting privileges, knowledge of patient current condition, hospital course, and medical plan of care. Services: Services provided to patient in accordance with Admission requirements found in Title 42 Section 412.3 of the Code of Federal Regulations Patient History Date of Service: 06/12/23 Reason for admission: CHF exacerbation. History of Present Illness: 72-year-old female patient with medical history significant for CHF, hypertension, hyperlipidemia, coronary artery disease was evaluated for episode of worsening shortness of breath. She takes oral Lasix therapy at home. She reports that she just have chest heaviness and difficulty breathing has been going on for a couple of days. She did not follow-up with the heart doctor because according to her the doctor relocated from [place] to [place] so she has not been able to have appropriate care for her. She denied overt episode of chest pain, fever, chills, rigor, nausea, vomiting. She describes no sputum production. In the ED, she had chest x-ray that showed some congestion and elevated BNP and because of her clinical symptoms she was started on Lasix therapy and was admitted for inpatient care. Allergies diphenhydramine [From Benadryl] Allergy (Verified 06/12/23 02:46) Hives/Rash Home Medications: Amlodipine Besylate 10 mg PO DAILY 07/20/17 Aspirin 81 mg PO DAILY 07/20/17 Atorvastatin Calcium 40 mg PO DAILY 07/20/17 Furosemide 3 tab PO BID 07/20/17 Losartan Potassium 50 mg PO BID 07/20/17 Metoprolol Tartrate 100 mg PO BID 07/20/17 Famotidine 40 mg PO BID 06/12/23 - Past Medical/Surgical History Diabetic: No -: HTN -: kidney stones -: chronic back pain -: tobacco abuse -: bulging discs in back -: arthritis -: high cholesterol -: SC -: damaged diaphragm post surgery -: uretheral stent placement -: rotator cuff to both arms -: diaphragm surgery - Family History Father -: Diabetes Mother -: Heart disease Notes: Pt not too sure of the heart disease - Social History Alcohol use: No CD- Drugs: No Caffeine use: Yes Physical Examination - Physical Exam General: Alert, Oriented x3, Mild distress HEENT: Atraumatic, Normocephalic Neck: Supple Respiratory: Diminished Cardiovascular: Regular rate/rhythm, Normal S1 S2 Gastrointestinal: Soft and benign Musculoskeletal: Swelling (mild) Neurological: Normal speech, Normal strength at 5/5 x4 extr - Studies Laboratory Data (last 24 hrs) 06/11/23 06/11/23 19:48 19:48 WBC 10.40 Hgb 12.7 Hct 38.0 Plt Count 256 Sodium 138 Potassium 4.1 BUN 30 H Creatinine 1.53 H Glucose 122 H Magnesium 2.2 Assessment and Plan - Plan CHF exacerbation: Patient has clinical symptoms and lab findings suggestive. Will continue on IV Lasix therapy for management We will put on fluid restriction of 1.2 L/day. Monitor strict input and output. Will obtain echocardiogram to assess cardiac function. Cardiology consult to be placed for management recommendation. Hypertension: We will monitor vital signs per unit protocol and continue outpatient antihypertensive medication. Hyperlipidemia: We will continue statin therapy. Also obtain lipid panel to assess adequacy of therapy. Acute kidney injury: Creatinine is elevated at 1.5. Will continue aggressive diuresis and follow trend of kidney function as there is concern for cardiorenal syndrome. Prophylaxis: Lovenox for DVT prophylaxis. CODE STATUS: Full code. Disposition: We will treat her CHF exacerbation and she will be discharged when she is deemed clinically stable. - Advance Directives Does patient have a Living Will: No Does patient have a Durable POA for Healthcare: No
[2023-06-12] MEDS: FUROSEMIDE 20 MG/ 2ML VIAL IV SCH (01:47)
[2023-06-12 03:11] VITALS: BMI 40.4
--- NOTE | 2023-06-12 07:12 | P.PN ---
Date of Service: 06/12/23 Subjective: ~2 weeks ago went to ER for shortness of breath and UTI symptoms; given 1 week of PO cefdinir. Urinary symptoms resolved however respiratory symptoms / SOB worsened. Unsure if patient has been noncompliant with her Lasix. Last filled prescription per chart was June 2022. If true would've ran out months ago. Patient states she only takes it once a day. Reports increased lower extremity edema over the last few weeks Intermittent dizziness over the last few months with ambulation HR noted to be in 30s overnight, improved to 60s today. States she was at urgent care and told HR was low ROS: 10 point ROS as noted above, otherwise negative Physical Exam: GEN: Alert, oriented, NAD HEENT: Normal conjunctiva, sclera anicteric CV: Regular rate and rhythm, 1+ b/l lower extremity edema to knees Pulm: mild-labored respirations on 2L NC, diminished at bases b/l ABD: Soft, nontender, nondistended Neuro: Normal speech, normal affect vitals reviewed Problem List: acute hypoxemic respiratory failure secondary to acute on chronic CHF exacerbation Intermittent Bradycardia h/o CAD s/p CABG x5 vessel (~Mar 2017 @[facility]) h/o prior [place] YOUNG h/o bilateral nephrolithiasis, s/p lithotripsy & bilateral j-stent placement (~2016 @[facility]) Chronic pain Hypertension Hyperlipidemia acute hypoxemic respiratory failure secondary to acute on chronic CHF exacerbation Intermittent Bradycardia h/o CAD s/p CABG x5 vessel (~Mar 2017 @[facility]) h/o prior [place] ~2 weeks ago went to ER for shortness of breath and UTI symptoms; treated with cefdinir x1 week. Urinary symptoms resolved however respiratory symptoms / SOB worsened Unsure if patient has been noncompliant with her Lasix. Last filled prescription per chart was June 2022. If true would've ran out months ago. Patient states she only takes it once a day. +orthopnea, +dyspnea on exertion, +increased edema CXR (06/11): Chronic elevation of left hemidiaphragm with scarring left lung base. Clear of acute infiltrate. HR noted to be in 30s overnight. BNP 5k on admission. Cardiology consulted Echo ordered to eval EF / stenosis Continue IV lasix TID Strict I/Os. wean oxygen as tolerated; currently on 2L NC YOUNG h/o bilateral nephrolithiasis, s/p lithotripsy & bilateral j-stent placement (~2017 @[facility]) Creatinine 1.53 Continue lasix Monitor renal function Chronic pain PRN analgesics Hypertension Hyperlipidemia confirm home meds, restart as appropriate VTE: Lovenox Code: Full Dispo: Home, ~2 days Pending breathing improves, further cardiac work up. son updated at bedside
[2023-06-12] MEDS: ACETAMINOPHEN 325 MG TABLET PO PRN (08:36)
[2023-06-12] MEDS: ENOXAPARIN 30 MG/0.3 ML SQ SCH (08:37)
[2023-06-12 13:27] LABS: Potassium 3.7 mEq/L (3.5-5.1); Troponin High Sensitivity 22.4 pg/mL (<58.9)
[2023-06-12] MEDS: FAMOTIDINE 20 MG TAB PO SCH (13:36)
[2023-06-12] MEDS: HYDRALAZINE HCL 20 MG/ML VIAL IV PRN (16:24)
[2023-06-12] MEDS: ATORVASTATIN 40 MG TAB PO SCH (17:38)
[2023-06-13 04:57] LABS: Hematocrit 38.4 % (36.0-45.0); MCV 92.6 fL (80-100); MPV 10.1 fL (7.6-11.3); Platelets 246 thou/uL (152-406); RBC Red Blood Cell Count 4.15 M/uL (3.86-4.86)
[2023-06-13 05:12] LABS: Magnesium 2.2 mg/dL (1.6-2.4); Potassium 3.5 mEq/L (3.5-5.1)
--- NOTE | 2023-06-13 08:56 | P.PN ---
Date of Service: 06/13/23 Subjective: Bigeminy, PVC's noted overnight. Patient asymptomatic/sleeping at the time Breathing slowly improving. hasn't ambulated out of room, feels some improvement ambulating to bathroom remains on 2L NC, HR in 70s afebrile ROS: 10 point ROS as noted above, otherwise negative Physical Exam: GEN: Alert, oriented, NAD HEENT: Normal conjunctiva, sclera anicteric CV: Regular rate and rhythm, trace to 1+ b/l lower extremity edema to knees Pulm: mild-labored respirations on 2L NC, diminished at bases b/l ABD: Soft, nontender, nondistended Neuro: Normal speech, normal affect vitals reviewed Problem List: acute hypoxemic respiratory failure secondary to acute on chronic CHF exacerbation Intermittent Bradycardia h/o CAD s/p CABG x5 vessel (~Mar 2017 @[facility]) h/o prior [place] YOUNG h/o bilateral nephrolithiasis, s/p lithotripsy & bilateral j-stent placement (~2016 @[facility]) Chronic pain Hypertension Hyperlipidemia acute hypoxemic respiratory failure secondary to acute on chronic CHF exacerbation Intermittent Bradycardia h/o CAD s/p CABG x5 vessel (~Mar 2017 @[facility]) h/o prior [place] ~2 weeks ago went to ER for shortness of breath and UTI symptoms; treated with cefdinir x1 week. Urinary symptoms resolved however respiratory symptoms / SOB worsened Unsure if patient has been noncompliant with her Lasix. Last filled prescription per chart was June 2022. If true would've ran out months ago. Patient states she only takes it once a day. +orthopnea, +dyspnea on exertion, +increased edema CXR (06/11): Chronic elevation of left hemidiaphragm with scarring left lung base. Clear of acute infiltrate. BNP 5k on admission. Cardiology consulted Echo ordered to eval EF / stenosis Continue IV lasix TID Strict I/Os. wean oxygen as tolerated; currently on 2L NC Check room air sats to see if Pt qualifies for home O2 2/4 Bigeminy, PVC's noted overnight. Patient asymptomatic PT consult YOUNG h/o bilateral nephrolithiasis, s/p lithotripsy & bilateral j-stent placement (~2016 @[facility]) Creatinine 1.53 on admission Continue lasix continue to monitor renal function improving Chronic pain PRN analgesics Hypertension Hyperlipidemia confirm home meds, restart as appropriate VTE: Lovenox Code: Full Dispo: Home, ~1-2 days Pending breathing improves, wean oxygen vs home oxygen son updated at bedside
[2023-06-13] MEDS: POTASSIUM CL SA 10 MEQ TAB PO ONE (10:04)
[2023-06-13] MEDS: ASPIRIN 81 MG CHEWABLE TABLET PO SCH (10:04)
[2023-06-13] MEDS: HYDROCODONE/APAP 5/325 MG TAB PO PRN (11:26)
[2023-06-14 08:14] LABS: Potassium 4.2 mEq/L (3.5-5.1)
[2023-06-14] MEDS: FUROSEMIDE 40 MG/4 ML VIAL IV SCH (09:16)
[2023-06-14] MEDS: MAGNESIUM OXIDE 400 MG TAB PO SCH (11:34)
--- NOTE | 2023-06-14 13:53 | CON ---
Date of Consultation: 06/14/2023 Reason For Consultation: CHF exacerbation. History Of Present Illness: A 72-year-old female, history of hypertension, dyslipidemia, CHF, orellana ry artery disease, follows up with a welder gas in [place], presented with worsening shortness of b reath, lower extremity edema. No orthopnea. No chest pain. No nausea, vomiting, diarrhea. No abdo chelle pain. Denies having any chest pain. Past Medical History: As outlined above in the HPI. Medications: Refer reconciliation sheet for detailed list. Allergies: DIPHENHYDRAMINE. Family History: No premature coronary artery disease or cancer. Social History: Does not smoke or drink. Does not use any drugs. Review of Systems: All systems reviewed are negative except mentioned in HPI. Physical Examination: Vital Signs: Reviewed. Head and Neck: Pupils are equal, reactive to light. Intact eye movements. No cervical lymphadenopa thy. Neck supple. Thyroid is not enlarged. Lungs: Clear to auscultation bilaterally. No rhonchi, rales, or crackles. No accessory muscle use. Heart: Irregular. No extra sounds. Abdomen: Soft, nontender. Bowel sounds positive. No organomegaly. No masses or hernia. No rigidi ty or rebound. Extremities: No edema, clubbing, cyanosis. Intact pulses. Skin: No rash. Neurologic: Alert, awake, oriented x3. No acute focal deficits appreciated. Lymph Nodes: No cervical, axillary lymphadenopathy. Investigations: BUN 40, creatinine 1.74, up from 30/1.3. Assessment/recommendation: 1.Acute on chronic congestive heart failure exacerbation. Ejection fraction is not known. Obtain a n echo. With diuresis, she is doing much better. However, BUN and creatinine going up. Hold off on the Lasix. Plain echo. Further recommendations accordingly. Give her a break from the diuretics t mitchel. 2.Acute on chronic renal failure, improved some and now it is back up. I will hold Lasix for now. She appears to be euvolemic. Strict low-salt diet. Re-evaluate labs in the morning and re-dose Lasi x as needed. 3.Coronary artery disease. No chest pain, with heart failure exacerbation. Plan for outpatient amena luation with a stress test if she has not had that done recently. 4.Hypertension. Blood pressure is controlled. SR/MODL Voice ID: [id number] Report ID: [id number]
--- NOTE | 2023-06-14 15:08 | EKG ---
Test Date: 2023-06-11 Test Time: 19:39:22 Metal Forger'S Assistant: CARRINGTON MEASUREMENT RESULTS: Intervals: Rate: 76 WV: 178 QRSD: 92 QT: 452 QTc: 508 [place]: P: 37 WV: 178 QRS: 4 T: 84 INTERPRETIVE STATEMENTS: Sinus rhythm with frequent and consecutive premature ventricular complexes Abnormal ECG Compared to ECG 10/07/2018 10:53:50 Ventricular premature complex(es) now present Myocardial infarct finding no longer present Electronically Signed On 06-14-23 15:01:48 CHAIR by Enrrique Kam
--- NOTE | 2023-06-14 16:59 | P.PN ---
Subjective Date of Service: 06/14/23 Chief Complaint: CHF exacerbation. Patient has no new complaint. She states she feels much better. She denies any shortness of breath. She ambulated without increased shortness of breath today. Physical Examination - Vital Signs Temperature: 97.3 F Blood Pressure: 134/59 Pulse: 50 Respirations: 16 Pulse Ox (%): 96 Assessment And Plan - Plan Physical Exam: GEN: Alert, oriented, NAD HEENT: Normal conjunctiva, sclera anicteric CV: Regular rate and rhythm, lower extremity edema resolved. Pulm: Mild bibasilar Rales, adequate breath sounds bilaterally. ABD: Soft, nontender, nondistended Neuro: Normal speech, normal affect vitals reviewed Problem List: acute hypoxemic respiratory failure secondary to acute on chronic CHF exacerbation Intermittent Bradycardia h/o CAD s/p CABG x5 vessel (~Mar 2017 @[facility]) h/o prior [place] YOUNG h/o bilateral nephrolithiasis, s/p lithotripsy & bilateral j-stent placement (~2016 @[facility]) Chronic pain Hypertension Hyperlipidemia acute hypoxemic respiratory failure secondary to acute on chronic CHF exacerbation Intermittent Bradycardia h/o CAD s/p CABG x5 vessel (~Mar 2017 @[facility]) h/o prior [place] Questionable compliance with home dose Lasix. CXR (06/11): Chronic elevation of left hemidiaphragm with scarring left lung base. Clear of acute infiltrate. BNP 5k on admission. Clinically improved. Patient is now tolerating room air. Patient now appears compensated for CHF. Cardiology Dr. Kam input appreciated. Echo results is pending Lasix held today due to increase in serum creatinine Strict I/Os. Patient with bigeminy and PVC's but has been asymptomatic Continue PT. YOUNG h/o bilateral nephrolithiasis, s/p lithotripsy & bilateral j-stent placement (~2016 @[facility]) Creatinine trended up slightly Hold Lasix today Nephrology consult Chronic pain PRN analgesics Hypertension Hyperlipidemia Continue home medications. VTE: Lovenox Code: Full Dispo: Home pending improvement in serum creatinine.
[2023-06-14 18:53] LABS: Phosphorus 4.1 mg/dL (2.5-4.9)
[2023-06-14 18:58] LABS: Magnesium 2.2 mg/dL (1.6-2.4)
[2023-06-14] MEDS ORDERED: POLYETHYL GLY 3350 17 GM/DOSE PO PRN (21:13)
[2023-06-14] MEDS: DOCUSATE NA 100 MG CAP PO SCH (21:14)
[2023-06-14] MEDS: LACTULOSE 20 GM/30 ML UCUP PO PRN (21:30)
[2023-06-15 06:02] VITALS: TEMP 97.5
--- NOTE | 2023-06-15 07:06 | ECHO ---
HEIGHT: 4 ft 11 in WEIGHT: 200 lb 0 oz DATE OF STUDY: 06/14/[address]: Francesco Gutierrez MD 2-DIMENSIONAL: YES M.MODE: YES DOPPLER: YES COLOR FLOW: YES TDS: PORTABLE: YES DEFINITY: BUBBLE STUDY: DIAGNOSIS: EVALUATE CONGESTIVE HEART FAILURE EXACERBATION CARDIAC HISTORY: CATHERIZATION: YES SURGERY: NO PROSTHETIC VALVE: NO PACEMAKER: NO MEASUREMENTS (cm) DIASTOLIC (NORMALS) SYSTOLIC (NORMALS) IVSd 1.2 (0.6-1.2) LA Diam 3.1 (1.9-4.0) LVEF 50% LVIDd 4.4 (3.5-5.7) LVIDs 3.4 (2.0-3.5) %FS 23% LVPWd 1.2 (0.6-1.2) Ao Diam 3.0 (2.0-3.7) 2 DIMENSIONAL ASSESSMENT: RIGHT ATRIUM: NOT WELL SEEN LEFT ATRIUM: NORMAL RIGHT VENTRICLE: NOT WELL SEEN LEFT VENTRICLE: APPEARS NORMAL TRICUSPID VALVE: NOT WELL SEEN MITRAL VALVE: NOT WELL SEEN PULMONIC VALVE: NOT WELL SEEN AORTIC VALVE: NOT WELL SEEN PERICARDIAL EFFUSION: NOT WELL SEEN AORTIC ROOT: NOT WELL SEEN LEFT VENTRICULAR WALL MOTION: UNABLE TO EVALUATE DUE TO POOR WINDOWS DOPPLER/COLOR FLOW: COMMENTS: 1. VERY POOR STUDY WITH POOR WINDOWS 2. OVERALL LEFT VENTRICULAR EJECTION FRACTION APPEARS NORMAL - 50% 3. RECOMMEND CONTRAST ECHOCARDIOGRAM TECHNOLOGIST: TRE MARTINEZ
[2023-06-15 07:17] LABS: Albumin 2.8 g/dL (3.4-5.0); Phosphorus 3.6 mg/dL (2.5-4.9); Potassium 4.6 mEq/L (3.5-5.1)
[2023-06-15 08:56] VITALS: O2SAT 96
[2023-06-15] MEDS: FUROSEMIDE 40 MG TABLET PO SCH (09:00)
[2023-06-15 10:07] VITALS: BP 110/41
--- NOTE | 2023-06-15 12:58 | EKG ---
Test Date: 2023-06-13 Test Time: 02:35:20 Technician Trainee: DAVID MEASUREMENT RESULTS: Intervals: Rate: 83 MA: 150 QRSD: 90 QT: 376 QTc: 441 [place]: P: 56 MA: 150 QRS: 0 T: 21 INTERPRETIVE STATEMENTS: Sinus rhythm with PVCs Otherwise normal ECG Electronically Signed On 06-15-23 12:53:45 GRADUATE CIVIL ENGINEER by Enrrique Kam
--- NOTE | 2023-06-15 13:25 | P.DS ---
Admission Date: 06/13/23 Discharge Date: 06/15/23 Disposition: ROUTINE DISCHARGE Discharge Condition: FAIR Reason for Admission: CHF exacerbation. Brief History of Present Illness: 72-year-old female patient with medical history significant for CHF, hypertension, hyperlipidemia, coronary artery disease was evaluated for episode of worsening shortness of breath. She takes oral Lasix therapy at home. She reported chest heaviness and difficulty breathing that had been going on for a couple of days. She reported noncompliance with cardiology follow-up. She denied overt episode of chest pain, fever, chills, rigor, nausea, vomiting. She describes no sputum production. In the ED, she had chest x-ray that showed vascular congestion and elevated BNP. Her clinical symptoms suggested heart failure so patient was admitted for further management. Hospital Course: Diagnosis Acute hypoxemic respiratory failure secondary to acute on chronic CHF exacerbation Intermittent Bradycardia h/o CAD s/p CABG x5 vessel (~Mar 2017 @[facility]) h/o prior [place] YOUNG h/o bilateral nephrolithiasis, s/p lithotripsy & bilateral j-stent placement (~2016 @[facility]) Chronic pain Hypertension Hyperlipidemia Acute hypoxemic respiratory failure secondary to acute on chronic CHF exacerbation Intermittent Bradycardia h/o CAD s/p CABG x5 vessel (~Mar 2017 @[facility]) h/o prior [place] Questionable compliance with home dose Lasix. CXR (06/11): Chronic elevation of left hemidiaphragm with scarring left lung base. Clear of acute infiltrate. BNP 5k on admission. Patient treated with IV Lasix Clinically improved. Oxygen was weaned off. Patient has tolerated room air with ambulation. Patient now appears compensated for CHF. Cardiology Dr. Kam evaluated patient and assisted with management Echo: Poor acoustic windows but normal EF. Lasix held briefly due to increase in serum creatinine. Serum creatinine stabilized. She was seen and evaluated by nephrology Dr. Montgomery. Patient with bigeminy and PVC's but has been asymptomatic Patient seen and evaluated by PT. She ambulated in the hallway with a walker. YOUNG h/o bilateral nephrolithiasis, s/p lithotripsy & bilateral j-stent placement (~2017 @[facility]) Creatinine trended up slightly Held Lasix briefly. Nephrology Dr. Montgomery evaluated patient and assisted with management. Dr. Oh will follow-up with patient's in the office. Chronic pain Managed with PRN analgesics Hypertension Held home antihypertensives due to low normal blood pressure readings. Hyperlipidemia Continued home medications. Vital Signs/Physical Exam: Temp Pulse Resp BP Pulse Ox 97.5 F 62 18 110/41 L 96 06/15/23 04:00 06/15/23 09:00 06/15/23 04:00 06/15/23 09:00 06/15/23 04:00 General: Alert, In no apparent distress, Oriented x3, Obese HEENT: Mucous membr. moist/pink Neck: Supple, JVD not distended Respiratory: Clear to auscultation bilaterally, Normal air movement Cardiovascular: No edema, Regular rate/rhythm, Normal S1 S2 Gastrointestinal: Normal bowel sounds, Soft and benign, Non-distended, No ten derness Musculoskeletal: No swelling, No tenderness Integumentary: No rashes, No cyanosis Neurological: Normal strength at 5/5 x4 extr Laboratory Data at Discharge: WBC 7.60 thou/uL (4.3-10.9) 06/13/23 03:43 Hgb 12.9 g/dL (12.0-15.0) 06/13/23 03:43 Hct 38.4 % (36.0-45.0) 06/13/23 03:43 Plt Count 246 thou/uL (152-406) 06/13/23 03:43 Sodium 136 mEq/L (136-145) 06/15/23 06:40 Potassium 4.6 mEq/L (3.5-5.1) 06/15/23 06:40 BUN 41 mg/dL (7-18) H 06/15/23 06:40 Creatinine 1.76 mg/dL (0.55-1.02) H 06/15/23 06:40 Glucose 108 mg/dL (74-106) H 06/15/23 06:40 Phosphorus 3.6 mg/dL (2.5-4.9) 06/15/23 06:40 Magnesium 2.2 mg/dL (1.6-2.4) 06/14/23 18:27 Triglycerides 149 mg/dL (<150) 06/13/23 03:43 Cholesterol 192 mg/dL (<200) 06/13/23 03:43 HDL Cholesterol 59 mg/dL (40-60) 06/13/23 03:43 Cholesterol/HDL Ratio 3.25 06/13/23 03:43 Home Medications: Metoprolol Tartrate 100 mg PO BID 07/20/17 Aspirin 81 mg PO DAILY #30 tab.chew 06/15/23 Atorvastatin Calcium 40 mg PO DAILY #30 tab 06/15/23 Famotidine 40 mg PO BID #60 tab 06/15/23 Furosemide [Lasix*] 40 mg PO DAILY #30 tab 06/15/23 Losartan Potassium 50 mg PO BID #60 tab 06/15/23 polyethylene glycoL 3350 [Polyethylene Glycol 3350] 17 gm PO DAILY #30 packet 06/15/23 New Medications: Aspirin 81 mg PO DAILY #30 tab.chew Atorvastatin Calcium 40 mg PO DAILY #30 tab Famotidine 40 mg PO BID #60 tab Furosemide [Lasix*] 40 mg PO DAILY #30 tab Losartan Potassium 50 mg PO BID #60 tab polyethylene glycoL 3350 [Polyethylene Glycol 3350] 17 gm PO DAILY #30 packet Physician Discharge Instructions: Patient presented with worsening lower extremity edema, orthopnea, dyspnea on exertion. Suspect acute on chronic CHF exacerbation secondary to non-compliance with home medicines. Patient's home meds haven't been filled since June 2022 per chart. If true patient would've ran out of her home meds months ago. Prescriptions in room with labels from early 2022. Cardiology was consulted. BNP 5k on admission. CXR noted chronic elevation of lefthemidiaphragm with scarring of left lung base otherwise unremarkable. Echo w as ordered to eval EF / stenosis. Patient had improvement of her symptoms with IV diuresis. Advised importance of taking home meds as prescribed and not to miss any scheduled meds. Your blood pressure was initially high became borderline low during the latter part of your hospital stay and for that matter you are not giving any blood pressure medication. Your heart rate also went as low as 38. Please check your blood pressure every morning, and resume your blood pressure medications if your systolic blood pressure (top value) is persistently greater than 140. Do not take metoprolol if your heart rate registered on the BP machine is less than 60. Your Lasix dose has been changed to 40 mg daily. Do not drink excess water because he can develop shortness of breath if excess fluid goes into the lungs. You may drink up to 2 L of fluid in a day. Follow up: PCP 3-5 days Cardiology 1-2 weeks Diet: AHA Activity: Fall precautions Followup: Antony Montgomery MD [ACTIVE - CAN ADMIT] - 1-2 Weeks NONE,NONE [Primary Care Provider] - Enrrique Kam MD [ACTIVE - CAN ADMIT] - 1-2 Weeks Time spent managing pt's care (in minutes): 36
--- NOTE | 2023-06-15 16:56 | PN ---
Date of Progress Note: 06/15/2023 Subjective: Seen at bedside, breathing is better. Lower extremity edema has resolved. No chest munir n. Review of Systems: Positive shortness of breath on exertion. No orthopnea or shortness of breath at rest or lower extre mity edema. No nausea, vomiting, diarrhea. All other systems reviewed are negative. Objective: Vital Signs: Reviewed. Head and Neck: Pupils are equal, reactive to light. No JVD. No cervical lymphadenopathy. Neck sup ple. Thyroid is not enlarged. Lungs: Decreased breathing signs. No accessory muscle use or muscle retraction. Heart: Regular. No extra sounds. Abdomen: Soft, nontender. Bowel sounds positive. No organomegaly. No masses or hernia. No rigidi ty or rebound. Extremities: No edema, clubbing, cyanosis. Intact pulses. Skin: No rash. Neurologic: Alert, awake, oriented x3. No acute focal deficits appreciated. Investigations: BUN 41, creatinine is 1.76. Assessment/recommendation: 1.Acute on chronic diastolic heart failure exacerbation. She appears to be euvolemic from my standp oint. Resume Lasix orally and she can be released at a later time to follow up with her primary card iologist. 2.Coronary artery disease. Outpatient stress test is recommended. 3.Hypertension. Blood pressure is controlled. SR/PATRICKL Voice ID: [id number] Report ID: [id number]
--- NOTE | 2023-06-15 18:12 | CON ---
Date of Consultation: 06/15/2023 Reason For Consultation: Elevated BUN and creatinine, fluid management. History Of Present Illness: This is a pleasant -jzok-ikt female with significant past medical history of congestive heart failure, hyperlipidemia, CAD complicated with congestive heart failure, ejection fraction of 50% as of this admission, nephrolithiasis status post stent placement, hypertension, hyperlipidemia, the patient came to the hospital complaining of shortness of breath for the last few days, found to have elevation in BUN and creatinine. For that reason, we have been consulted. The patient denied taking any nonsteroidal, no IV contrast. Upon arrival to the hospital, creatinine was 1.5, currently 1.7 and GFR down to 30. The patient was started on diuresis. Feeling better. Currently on room air. Past Medical History: Includes: 1. Hypertension. 2. Hyperlipidemia. 3. Nephrolithiasis, status post stent placement. 4. CAD, complicated with congestive heart failure. Home Medications: Include: 1. Amlodipine. 2. Aspirin. 3. Atorvastatin. 4. Lasix. 5. Losartan. 6. Metoprolol. 7. Pepcid. Allergies: TO DIPHENHYDRAMINE. Past Surgical History: Include stent placement, surgery, rotator cuff surgery. Family History: Positive for diabetes and CAD. Social History: Denied smoking. Denied drinking. Denied drugs abuse. Review of Systems: Head and Neck: No red eye. No ear pain. GI: No nausea, no vomiting. : No polyuria, no dysuria, no hematuria. Automatic Pinsetter Adjuster: No vaginal discharge. Respiratory: Has shortness of breath. Cardiovascular: Has leg swelling, has orthopnea. Endocrine: No polydipsia. Skin: No rash. Neuro: Has neuropathy. Musculoskeletal: No weakness. Physical Examination: Vital Signs: When I saw the patient, the patient sitting in the chair, comfortable, not on any distress on room air, blood pressure 110/41, pulse of 62, afebrile. Chest: Clear to auscultation. Heart: S1. S2 regular. Abdomen: Soft, nontender. Extremities: Trace edema. Neurologic: Alert. No focality. Lab Data: Upon admission creatinine 1.5, GFR of 36. The patient back in 2021, creatinine 1.2, GFR of 49. Today lab data; sodium 136, potassium 4.6, bicarb 28, BUN 41, creatinine 1.7, GFR of 30, calcium 9.1, phosphorus 3.6, albumin 2.8, hemoglobin 12.9. Chest x-ray showing cardiomegaly with congestion. Echocardiogram showing ejection fraction of 50%. No pulmonary hypertension. Assessment And Plan: 1. Acute kidney injury secondary to cardiorenal or volume with worsening kidney function. I again go ahead and continue diuresing the patient. We will discontinue losartan. We will send for renal ultrasound and we will follow up the patient. We will send for PC ratio. CK and uric acid and we will follow up. 2. Hypertension, controlled optimal with the presence of acute kidney injury. We will hold losartan. Continue diuresis. 3. Congestive heart failure with exacerbation. Continue diuresis. Hold losartan. 4. Hyponatremia, dilutional. We will continue diuresis. 5. Nephrolithiasis with the presence of acute kidney injury to rule out obstructive uropathy. We will send for renal ultrasound. Time spent examining the patient fyqx-cz-keae, reviewing data, lab and radiology, placing order, discussing the case with the patient, discussing the case with the steam plant control room operator including hospitalist and nursing staff, more than 75 minutes. SHAHLA Voice ID: [id number] Report ID: [id number] RAJENDRA
== END 2023-06-15 14:55 | disposition home or self-care (01) | DRG 291 ==
LOC: ER 19:23 → ERHOLD 06-12 00:02 → 2ND 06-12 00:47 → OBSVTOIN 06-13 11:13
PROVIDERS: ADMIT Internal Medicine Nephrology; ATTEND Internal Medicine
DX: I11.0 Hypertensive heart disease with heart failure (principal); I50.43 Acute on chronic combined systolic (congestive) and diastolic (congestive) heart failure; J96.01 Acute respiratory failure with hypoxia; N17.9 Acute kidney failure, unspecified; Z68.41 Body mass index [BMI] 40.0-44.9, adult; E87.1 Hypo-osmolality and hyponatremia; E66.9 Obesity, unspecified; E78.5 Hyperlipidemia, unspecified; M19.90 Unspecified osteoarthritis, unspecified site; E78.00 Pure hypercholesterolemia, unspecified; N20.0 Calculus of kidney; I49.3 Ventricular premature depolarization; G89.29 Other chronic pain; M54.9 Dorsalgia, unspecified; I25.10 Atherosclerotic heart disease of native coronary artery without angina pectoris; I25.2 Old myocardial infarction; Z95.1 Presence of aortocoronary bypass graft; Z79.82 Long term (current) use of aspirin; Z79.899 Other long term (current) drug therapy; Z87.891 Personal history of nicotine dependence; Z91.148 Patient's other noncompliance with medication regimen for other reason
CPT/HCPCS: 36415; 71045; 80048; 80061; 80069; 83735; 83880; 84100; 84484; 85025; 93005; 93306; 97116; 97161; 97530; G0378; J0360; J1650; J1940

== ENCOUNTER 2023-11-01 08:09 | Day surgery (SDC) | payer OTHER ==
[2023-10-29 15:45] LABS: Absolute Basophils 0.1 K/uL (0-0.5); Absolute Eosinophils 0.4 K/uL (0-0.5); Absolute Lymphocytes (CBC) 1.8 K/uL (0.7-4.9); Absolute Monocytes 0.7 K/uL (0.1-1.3); Absolute Neutrophil 4.6 K/uL (1.8-8.0); Basophils % 1.1 % (0-1.3); Eosinophils % 5.1 % (0-4.4); Hematocrit 33.9 % (36.0-45.0); Hemoglobin 11.4 g/dL (12.0-15.0); Lymphocytes % 23.3 % (15.3-44.8); MCH 32.2 pg (27.0-35.0); MCHC 33.6 g/dL (32.0-36.0); MCV 95.7 fL (80-100); MPV 8.3 fL (7.6-11.3); Monocytes % 9.6 % (3.3-12.3); Neutrophils % 60.9 % (41.7-73.7); Nucleated Red Blood Cells % 0.1 % (0-0); Platelets 292 thou/uL (152-406); RBC Red Blood Cell Count 3.54 M/uL (3.86-4.86); Red Cell Distribution Width 13.2 % (12.1-15.2)
[2023-10-29 15:51] LABS: PT Prothrombin Time 11.1 SECONDS (9.4-12.5); PTT, Activated Partial Thromb 30.1 SECONDS (24.3-36.9); Protime INR 1.01
[2023-10-29 15:59] LABS: Anion Gap 4.2 mEq/L (5.0-15.0); Potassium 4.2 mEq/L (3.5-5.1)
[2023-11-01] MEDS ORDERED: ONDANSETRON 4 MG/2 ML VIAL ONE (08:29)
[2023-11-01] MEDS ORDERED: KETOROLAC 30 MG/ML INJ ONE (08:29)
[2023-11-01] MEDS ORDERED: LIDOCAINE 1% MPF 5 ML VIAL ONE (08:29)
[2023-11-01] MEDS ORDERED: FENTANYL CITR 100 MCG/2 ML ONE (08:30)
[2023-11-01] MEDS ORDERED: propofoL 200 MG/20 ML VIAL IV ONE (08:30)
[2023-11-01] MEDS ORDERED: MIDAZOLAM HCL 2 MG/2 ML INJ ONE (08:30)
[2023-11-01] MEDS ORDERED: ROCURONIUM 50 MG/5 ML VIAL IV ONE (08:30)
[2023-11-01] MEDS: Ringers Lactate 1,000 ML IV ONE (08:40)
[2023-11-01] MEDS: CEFAZOLIN SODIUM 1 GM/VIAL ONE (09:50)
[2023-11-01] MEDS ORDERED: GLYCOPYRROLATE 0.2 MG/ML SYR ONE ×2 (09:53→10:03)
[2023-11-01] MEDS ORDERED: NEOSTIGMINE 1 MG/ML -10 ML VIAL ONE (10:03)
--- NOTE | 2023-11-01 10:48 | P.BOP ---
Preoperative diagnosis: Tender umbilical hernia Postoperative diagnosis: same Primary procedure: Laparoscopic repair of Tender umbilical hernia with mesh Secondary procedure: 3cm Asphalt Plant Operator: Lisette Al (Bigg) Estimated blood loss: <10cc Specimen: sac Findings: as above Anesthesia: General Complications: None Drain(s): Other (medium mesh) Transferred to: Recovery Room Condition: Good
[2023-11-01] MEDS: MORPHINE 4 MG/ML SYR ONE ×2 (10:53→11:03)
[2023-11-01] MEDS: HYDROMORPHONE HCL 1 MG/ML INJ ONE (11:13)
[2023-11-01] MEDS: CODEINE 30MG/APAP 300MG TAB ONE (12:00)
[2023-11-01 13:12] VITALS: BP 143/65; TEMP 97; O2SAT 8
--- NOTE | 2023-11-01 21:31 | OP ---
Date of Procedure: 11/01/2023 Surgeon: Dickson Vo MD Piano Assembler: DEV Crowley. Preoperative Diagnosis: Tender umbilical hernia. Postoperative Diagnosis: Tender umbilical hernia. Procedure: Laparoscopic repair of incarcerated tender umbilical hernia with mesh, about 3 cm. Estimated Blood Loss: Less than 10 cc. Specimen: Hernia sac. Anesthesia: General plus local. Complications: None. Findings: Incarcerated omentum reduced. Implant: Medium mesh Ventralex. Indications: This is a case of a -eofz-koy patient who comes to us with a tender umbilical hernia. Benefits, alternatives, and risks of laparoscopic possible open repair with possible mesh w as fully explained, which include, but not limited to infection, bleeding, damage to adjacent structu res, anesthesia complication, recurrence, AL, and even . She also understands this may not reli augusto symptoms. She might need more than one surgical intervention. She understood, signed a consent. She was also explained pros and cons of mesh placement. All the questions were answered to her sat isfaction. She agreed with the placement of mesh. Description Of Procedure: The patient was brought to the operating room, placed in supine position, anesthesia was induced without complication. Abdominal area was prepped and draped in the usual ster ile fashion. An incision was made in the infraumbilical region. Incision was carried down to subcut aneous tissue. We noticed the hernia sac to be attached to the umbilical skin plus incarcerated tiss ue. So, when we opened the hernia sac, we noticed incarcerated omentum. Adhesions were removed and the omentum was inspected and allowed to retract back into the abdominal cavity. Hernia sac was elizabeth frederick. Due to the fascia consistency, I believe she will benefit from the mesh since the area is friab le, so we put Vicryl #1 nqjokq-ek-xppya fashion multiple times in that area to secure the fascia as b est we can, put a Alberta trocar, obtained pneumoperitoneum. Then, we placed 5 mm trocars left and ri ght sides of the abdomen under direct visualization. This allowed me to visualize the defect better. We noticed that a medium mesh will fit the area and closed the defect by 3-5 cm. The mesh was plac ed through the Alberta trocar. Alberta trocar was removed and the mesh was secured anteriorly with a S orbaFix. Mesh straps were removed. Vicryl was closed in a vcrweg-it-rzgbd fashion. The fascial edg es were approximated to air seal. Then, with the camera once again, we proceeded to secure the mesh anteriorly to the anterior abdominal wall circumferentially with SorbaFix to make sure there is no in testines that can go in between. Once the mesh goes nice and opposed against the abdominal wall, we inspected the area of omentum, looks intact and carefully deflated the pneumoperitoneum, removed the trocars. I closed the subcutaneous tissue with 3-0 chromic and skin approximated. Sponge count and instrument counts were correct. The patient tolerated the procedure well. The patient was sent to r ecovery in stable condition. VANNA/MARIA TERESA Voice ID: [id number] Report ID: [id number]
--- NOTE | 2023-11-02 06:41 | DS ---
Date of Discharge: 11/01/2023 Diagnosis: Tender umbilical hernia. Procedure: Laparoscopic repair of tender umbilical hernia with mesh. Disposition: Home. Condition: Stable. Activity: As tolerated. No heavy lifting. Discharge Instructions: Follow up in my office in 1 week. Call for appointment at [phone]. Keep a beck in intact until we see her again in a week. KLEVER Voice ID: [id number] Report ID: [id number]
== END 2023-11-01 12:35 | disposition home or self-care (01) ==
LOC: OR 08:09
PROVIDERS: ATTEND Surgery
PROC: 0WUF4JZ Supplement Abdominal Wall with Synthetic Substitute, Percutaneous Endoscopic Approach (ICD-10-PCS; principal; 2023-11-01 09:30)
DX: K42.0 Umbilical hernia with obstruction, without gangrene (principal)
CPT/HCPCS: 85025; 80048; 36415; 85610; 88302; 85730; 49594; J2704; J2710; J2001; J2250; J3010; J1170; J2405; J7120; J0690

== ENCOUNTER 2024-12-29 07:41 | Day surgery (SDC) | payer OTHER ==
--- NOTE | 2024-12-25 10:02 | RAD REPORT ---
EXAM: Chest Pa And Lat (2 Views) HISTORY: 74 years Female Pre-op pending trigger finger release COMPARISON: 06/11/2023 FINDINGS: LUNGS/PLEURA: Linear scarring and volume loss at the left lung base. No acute process identified. CARDIAC/MEDIASTINUM: The cardiac silhouette is within normal limits. UPPER ABDOMEN: No significant abnormality. BONES: Sternotomy. No acute abnormality. LINES/TUBES/OTHER: N/A IMPRESSION: No acute process identified. Chronic scarring and volume loss at the left lung base.
[2024-12-25 10:15] LABS: Absolute Lymphocytes (CBC) 2.2 K/uL (0.7-4.9); Hematocrit 37.6 % (36.0-45.0); Hemoglobin 12.9 g/dL (12.0-15.0); MCH 31.9 pg (27.0-35.0); MCHC 34.4 g/dL (32.0-36.0); MCV 92.7 fL (80-100); MPV 8.8 fL (7.6-11.3); Nucleated RBC Absolute Count 0.0 (0-0); Nucleated Red Blood Cells % 0.0 % (0-0); RBC Red Blood Cell Count 4.05 M/uL (3.86-4.86); White Blood Count 7.90 thou/uL (4.3-10.9)
[2024-12-25 10:24] LABS: PT Prothrombin Time 11.8 SECONDS (10-13.0); Protime INR 1.05
[2024-12-25 10:25] LABS: PTT, Activated Partial Thromb 29.1 SECONDS (27.2-37.4)
[2024-12-25 10:29] LABS: Anion Gap 5.5 mEq/L (5.0-15.0); BUN Blood Urea Nitrogen 24.0 mg/dL (7-18); Glucose Level 106.0 mg/dL (74-106); Potassium 4.5 mEq/L (3.5-5.1)
[2024-12-29] MEDS: CEFAZOLIN SODIUM 2 GM/VIAL ONE (08:26)
[2024-12-29] MEDS: Ringers Lactate 1,000 ML IV ONE (08:27)
[2024-12-29] MEDS: BUPIVACAINE 0.25% PF 10 ML VIAL ONE (08:28)
[2024-12-29] MEDS ORDERED: LIDOCAINE 1% MPF 5 ML VIAL ONE ×2 (08:54→09:10)
[2024-12-29] MEDS ORDERED: MIDAZOLAM HCL 2 MG/2 ML INJ ONE (09:10)
[2024-12-29] MEDS ORDERED: ONDANSETRON 4 MG/2 ML VIAL ONE (09:10)
[2024-12-29] MEDS ORDERED: FENTANYL CITR 100 MCG/2 ML ONE (09:10)
[2024-12-29] MEDS ORDERED: GLYCOPYRROLATE 0.2 MG/ML SYR ONE (09:24)
[2024-12-29] MEDS ORDERED: EPHEDRINE SULF 50 MG/ML VIAL ONE (09:27)
--- NOTE | 2024-12-29 10:05 | P.BOP ---
Preoperative diagnosis: Right ring finger trigger digit Postoperative diagnosis: Same Primary procedure: Right ring finger A1 richard release Maintainer Plant: NONE,NONE Estimated blood loss: 1 cc Specimen: None Findings: See dictation Anesthesia: General Complications: None Implants: None Fluids & blood products: Per anesthesia record Transferred to: Recovery Room Condition: Good
--- NOTE | 2024-12-29 10:07 | P.OP ---
Preoperative diagnosis: Right ring finger trigger digit Postoperative diagnosis: Same Primary procedure: Right ring finger A1 richard release Anesthesia: General Estimated blood loss: 1 cc Specimen: None Findings: See dictation Operative Technique: Reason for Surgery: Martha had physical exam findings consistent with right ring finger trigger digit. Patient failed conservative treatment measures. I discussed with the patient at length risks and benefits associated with the procedure. She expressed understanding and elected proceed with operative treatment. Description of Procedure: After informed consent was obtained the patient was identified in the preoperative holding area. The right ring finger was marked. Patient then brought back to the operating room transferred the operative table in supine fashion and placed under anesthesia. The right upper extremity was exsanguinated and the tourniquet was inflated to 250 mmHg. Approximately a 1.5 cm longitudinal incision over the ring finger A1 richard. Dissection was then taken down to the A1 richard using Ragnell retractors. The tendon sheath was identified. It was split in line with the incision. There was significant tenosynovial fluid that was expressed after opening the tendon sheath. The tendon was then brought out through the incision using a Ragnell retractor. There was full excursion of the tendon without triggering noted. The wound was then irrigated thoroughly with normal saline and skin was approximated using a 5-0 Prolene. Sterile dressings were applied and patient was awakened and transf erred to PACU in stable condition. Postoperative plan: The patient will follow-up in 1 to 2 weeks for wound check and suture removal. She may begin to work on range of motion exercises at this time. Complications: None Implants: None Fluids & blood products: Per anesthesia record Transferred to: Recovery Room Condition: Good
[2024-12-29] MEDS: MORPHINE 4 MG/ML SYR ONE ×2 (10:14→10:24)
[2024-12-29] MEDS ORDERED: HYDROCODONE/APAP 5/325 MG TAB ONE (11:01)
[2024-12-29] MEDS: HYDROCODONE/APAP 5/325 MG TAB PO ONE (11:02)
[2024-12-29 13:38] VITALS: BP 122/60; TEMP 97.3; O2SAT 94
== END 2024-12-29 11:45 | disposition home or self-care (01) ==
LOC: OR 07:41
PROVIDERS: ATTEND Orthopaedic Surgery Sports Medicine
PROC: 0LN70ZZ Release Right Hand Tendon, Open Approach (ICD-10-PCS; principal; 2024-12-29 09:00)
DX: M65.341 Trigger finger, right ring finger (principal)
CPT/HCPCS: 93005; 85025; 80048; 36415; 85610; 85730; 71046; 26055; J2704; J2003 ×2; J2250; J3010; J2405; J7120; J1100